=== PATIENT | female | born 1955 | race Caucasian/White ===

== ENCOUNTER 2016-05-08 12:41 | Inpatient (IN) | payer MEDICAID ==
[2016-05-08] MEDS ORDERED: SODIUM CHLORIDE 0.9% 10 ML FLUSH FLUSH PRN (13:53)
--- NOTE | 2016-05-08 14:23 | DIRPT ---
CLINICAL DATA: Cough EXAM: CHEST 2 VIEW COMPARISON: 03/07/2016 FINDINGS: Aortic valve replacement. Heart size upper normal. Negative for heart failure. Lungs are clear without infiltrate or effusion. No change from the prior study. IMPRESSION: No active cardiopulmonary disease. Electronically Signed By: Luis Ellis M.D. On: 05/08/2016 14:20
--- NOTE | 2016-05-08 14:26 | DIRPT ---
CLINICAL DATA: Patient with altered mental status. Combative. EXAM: CT HEAD WITHOUT CONTRAST TECHNIQUE: Contiguous axial images were obtained from the base of the skull through the vertex without intravenous contrast. COMPARISON: Brain CT 03/07/2016. FINDINGS: Ventricles and sulci are prominent compatible with atrophy. Periventricular and subcortical white matter hypodensity compatible with chronic small vessel ischemic changes. No evidence for acute cortically based infarct, intracranial hemorrhage, mass lesion or mass-effect. Orbits are unremarkable. Paranasal sinuses are unremarkable. Fluid within left mastoid air cells. Calvarium is intact. IMPRESSION: No acute intracranial process. Chronic small vessel ischemic changes. Electronically Signed By: Ahsan Russo M.D. On: 05/08/2016 14:24
[2016-05-08 14:40] LABS: AUTOMATED BASOPHIL 0.2 % (0-2); AUTOMATED EOSINOPHIL 0.2 % (0-5); AUTOMATED LYMPH 6.6 % (17-44); AUTOMATED MONOCYTE 4.5 % (3-10); AUTOMATED NEUTROPHIL 88.5 % (45-76); MPV 8.6 fL (7.4-10.4)
[2016-05-08 14:51] LABS: PARTIAL THROMB. TIME 19.4 SEC (22-35); PT-INR 1.3
--- NOTE | 2016-05-08 15:15 | EDPRACDOC ---
- General Information Information Source: Patient Mode Of Arrival: Ambulance - History of Present Illness Symptoms Started: TODAY HPI: PT PRESENTS TODAY VIA EMS FOR 2 MONTHS OF COUGH/CONGESTION, GENERAL MALAISE, INTERMITTENT FEVERS/CP/VOMITING. PT HAS NOT SEEN PCP FOR THIS. CURRENTLY PT DOES NOT APPEAR TO BE IN ANY DISTRESS. PT DENIES GARCIA, DIZZINESS, SHOB, ABD PAIN , DYSURIA. PT POOR HISTORIAN AND STATES "I'M NOT STAYING NO MATTER WHAT YOU SAY , JUST FIND OUT WHAT'S WRONG WITH ME AND LET ME GO HOME". Symptoms: Reports: Cough, Fever, Vomiting Recent Medications: Reports: None Shortness of Breath: None Cough Frequency: Persistent Cough Description: Reports: Strong, Congested Ear Symptoms: Reports: None Associated Signs and Symptoms: Reports: Cough, Fever, Nausea, Vomiting, Myalgia <Gabriella Dasilva K - Last Filed: 05/08/16 18:01> <Juliann Davis - Last Filed: 05/08/16 19:40> - General Information Chief Complaint: Altered Mental Status Stated Complaint: AMS Time Seen by Provider: 05/08/16 13:32 Home Medications: Home Medications Amlodipine [Norvasc] 10 mg PO DAILY 03/07/16 Amoxicillin Trihydrate [Amoxicillin] 500 mg PO TID #30 tab 03/07/16 Ciprofloxacin HCl [Cipro] 500 mg PO BID #20 tab 03/07/16 Furosemide [Lasix] 20 mg PO DAILY PRN 03/07/16 Levothyroxine Sodium 25 mcg PO DAILY 03/07/16 Lisinopril [Prinivil] 10 mg PO DAILY 03/07/16 Metoprolol Succinate (XL) [Toprol Xl] 12.5 mg PO DAILY 03/07/16 Omeprazole 20 mg PO DAILY 03/07/16 Pantoprazole Sodium [Protonix] 40 mg PO DAILY #30 tab 03/07/16 Quetiapine Fumarate [Seroquel] 50 mg PO BID #60 tab 03/07/16 Allergies/Adverse Reactions: Allergies Allergy/AdvReac Type Severity Reaction Status Date / Time No Known Allergies Allergy Verified 03/07/16 14:48 ED Past Medical History - History Reviewed Yes Nurses notes reviewed and agree except as marked - Patient Medical History Cardiac History: Reports: Hypertension, Hypercholesterolemia Psychological History: Reports: Depression Surgical History: Reports: Cholecystectomy, Tonsillectomy/Adnoidectomy - Social Medical History Smoking Status: Heavy tobacco smoker (5 or more cigarettes/day or daily pipe/ cigar) <Gabriella Dasilva - Last Filed: 05/08/16 18:01> EDM Review of Systems - Review of Systems ROS Negative Except as Marked: Yes All systems reviewed and were negative except as marked Constitutional: Fever, Fatigue, Weakness Eyes: No Symptoms Reported Ears: No Symptoms Reported Throat: No Symptoms Reported Nose: Congestion Respiratory: Cough, Shortness of Breath Cardiovascular: Chest Pain Gastrointestinal: Nausea, Vomiting Genitourinary: No Symptoms Reported Neurological: No Symptoms Reported Musculoskeletal: No Symptoms Reported Integumentary: No Symptoms Reported <Gabriella Dasilva - Last Filed: 05/08/16 18:01> - Physical Exam Constitutional: Alert (Awake), No apparent distress Oriented to: Time, Person, Place Last recorded Vital Signs: Last Vital Signs Temp 97.4 F L 05/08/16 13:05 Pulse 86 05/08/16 14:08 Resp 18 05/08/16 14:08 BP 131/74 05/08/16 14:08 Pulse Ox 96 05/08/16 14:08 Oxygen Pulse Oxygen Saturation 96 O2 Device Room Air Oxygen Flow Rate Fraction of Inspired Oxygen ( FIO2) - HEENT Head: Normal Eye Exam: Normal Oropharynx: Normal Neck: Normal, Denies Pain, Midline - Respiratory/Cardiovascular Respiratory: Normal - CTA Cardiovascular: Normal - GI Auscultation: Normal Palpation: Normal Tenderness: Non tender - Musculoskeletal Back: Normal Extremities: Normal - Integumentary Skin: Normal Lymphatics: Normal - Neurologic Cerebellar: Normal Mood Description: Normal Thought: Coherent Perception: Normal <Gabriella Dasilva - Last Filed: 05/08/16 18:01> - Physical Exam Last recorded Vital Signs: Last Vital Signs Temp 97.4 F L 05/08/16 13:05 Pulse 89 05/08/16 16:34 Resp 16 05/08/16 16:34 BP 131/81 05/08/16 16:34 Pulse Ox 95 05/08/16 16:34 Oxygen Pulse Oxygen Saturation 95 O2 Device Room Air Oxygen Flow Rate Fraction of Inspired Oxygen ( FIO2) <Juliann Davis - Last Filed: 05/08/16 19:40> - Re-evaluation Re-evaluation 1 Re-evaluation Time: 16:19 NOTED RENAL FAILURE; PTS IV HAS INFILTRATED AND AT THE CURRENT MOMENT, SHE IS REFUSING ADDITIONAL IV ACCESS AT THIS TIME. I EXPLAIN TO PT THAT SHE IS IN RENAL FAILURE AND SHE COULD ; PT STILL REFUSES. SON AND DAUGHTER ARE HERE AND WILL TALK TO PT ABOUT ALLOWING US TO TREAT. PT FINALLY AGREES TO ALLOW ME TO TREAT HER. FAMILY IS ALSO PRESENT AND AGREES TO PLAN. - Results 05/08/16 14:26 05/08/16 15:42 WBC 15.0 xk/uL (3.8-10.8) H 05/08/16 14:26 RBC 5.32 xM/uL (4.20-5.40) 05/08/16 14:26 Hgb 14.5 g/dL (12.0-16.0) 05/08/16 14:26 Hct 43.5 % (36-47) 05/08/16 14:26 MCV 82 fL (81-99) 05/08/16 14:26 MCH 27.3 pg (27-32) 05/08/16 14:26 MCHC 33.4 g/dl (33-36) 05/08/16 14:26 RDW 18.1 % (11.5-14.5) H 05/08/16 14:26 Plt Count 396 xk/uL (130-400) 05/08/16 14:26 MPV 8.6 fL (7.4-10.4) 05/08/16 14:26 Neut % (Auto) 88.5 % (45-76) H 05/08/16 14:26 Lymph % (Auto) 6.6 % (17-44) L 05/08/16 14:26 [place] % (Auto) 4.5 % (3-10) 05/08/16 14:26 Eos % (Auto) 0.2 % (0-5) 05/08/16 14:26 Baso % (Auto) 0.2 % (0-2) 05/08/16 14:26 Absolute Neuts (auto) 13.20 xk/uL (1.7-8.2) H 05/08/16 14:26 Absolute Lymphs (auto) 0.90 xk/uL (0.65-4.75) 05/08/16 14:26 PT 13.3 SEC (9.2-11.2) H 05/08/16 14:26 INR 1.3 05/08/16 14:26 APTT 19.4 SEC (22-35) L 05/08/16 14:26 Lab Results 05/08/16 05/08/16 14:26 14:26 WBC 15.0 H RBC 5.32 Hgb 14.5 Hct 43.5 MCV 82 MCH 27.3 MCHC 33.4 RDW 18.1 H Plt Count 396 MPV 8.6 Neut % (Auto) 88.5 H Lymph % (Auto) 6.6 L [place] % (Auto) 4.5 Eos % (Auto) 0.2 Baso % (Auto) 0.2 Absolute Neuts (auto) 13.20 H Absolute Lymphs (auto) 0.90 PT 13.3 H INR 1.3 APTT 19.4 L - EKG EKG #1 EKG Time: 14:05 -: Yes EKG interpreted by me Rate: bpm: 84 [place]: Normal Rhythm: NSR Block: None Hypertrophy: LAE ST: Normal Comparison: 03/07/17 <Gabriella Dasilva - Last Filed: 05/08/16 18:01> - Re-evaluation Re-evaluation 2 Re-evaluation Time: 17:25 (AFTER DISCUSSION WITH PATIENT AND SON, PT RELENTS TO STAYING IN HOSPITAL) PT ALERT AND ORIENTED X 4, BUT HAS SIGNIFICANT DIFFICULTY WITH ANSWERS. ABILITY TO MAKE AN INFORMED MEDICAL DECISION QUESTIONABLE. - Results 05/08/16 14:26 05/08/16 15:42 WBC 15.0 xk/uL (3.8-10.8) H 05/08/16 14:26 RBC 5.32 xM/uL (4.20-5.40) 05/08/16 14:26 Hgb 14.5 g/dL (12.0-16.0) 05/08/16 14:26 Hct 43.5 % (36-47) 05/08/16 14:26 MCV 82 fL (81-99) 05/08/16 14:26 MCH 27.3 pg (27-32) 05/08/16 14:26 MCHC 33.4 g/dl (33-36) 05/08/16 14:26 RDW 18.1 % (11.5-14.5) H 05/08/16 14:26 Plt Count 396 xk/uL (130-400) 05/08/16 14:26 MPV 8.6 fL (7.4-10.4) 05/08/16 14:26 Neut % (Auto) 88.5 % (45-76) H 05/08/16 14:26 Lymph % (Auto) 6.6 % (17-44) L 05/08/16 14:26 [place] % (Auto) 4.5 % (3-10) 05/08/16 14:26 Eos % (Auto) 0.2 % (0-5) 05/08/16 14:26 Baso % (Auto) 0.2 % (0-2) 05/08/16 14:26 Absolute Neuts (auto) 13.20 xk/uL (1.7-8.2) H 05/08/16 14:26 Absolute Lymphs (auto) 0.90 xk/uL (0.65-4.75) 05/08/16 14:26 PT 13.3 SEC (9.2-11.2) H 05/08/16 14:26 INR 1.3 05/08/16 14:26 APTT 19.4 SEC (22-35) L 05/08/16 14:26 Sodium 135 mEq/L (137-146) L 05/08/16 15:42 Potassium 4.5 mEq/L (3.5-5.1) 05/08/16 15:42 Chloride 101 mEq/L (98-107) 05/08/16 15:42 Carbon Dioxide 14 mMOL/L (22-33) L 05/08/16 15:42 Anion Gap 25 mEq/L (8-16) H 05/08/16 15:42 BUN 52 MG/DL (7-17) H 05/08/16 15:42 Creatinine 4.30 MG/DL (0.52-1.04) H 05/08/16 15:42 Estimated GFR (MDRD) 11 mL/min (>=60) L 05/08/16 15:42 Glucose 60 MG/DL (70-99) L 05/08/16 15:42 Calculated Osmolality 272 MOs/Kg (270-290) 05/08/16 15:42 Calcium 9.4 MG/DL (8.4-10.2) 05/08/16 15:42 Corrected Calcium 10.1 MG/DL (8.4-10.2) 05/08/16 15:42 Total Bilirubin 11.6 MG/DL (0.2-1.3) H 05/08/16 15:42 AST 21 IU/L (14-36) 05/08/16 15:42 ALT 23 IU/L (9-52) 05/08/16 15:42 Alkaline Phosphatase 284 IU/L (55-165) H 05/08/16 15:42 Troponin I 0.09 ng/mL (<.04) 05/08/16 15:42 Total Protein 6.9 G/DL (6.3-8.2) 05/08/16 15:42 Albumin 3.3 G/DL (3.5-5.0) L 05/08/16 15:42 Lab Results 05/08/16 05/08/16 05/08/16 15:42 14:26 14:26 WBC 15.0 H RBC 5.32 Hgb 14.5 Hct 43.5 MCV 82 MCH 27.3 MCHC 33.4 RDW 18.1 H Plt Count 396 MPV 8.6 Neut % (Auto) 88.5 H Lymph % (Auto) 6.6 L [place] % (Auto) 4.5 Eos % (Auto) 0.2 Baso % (Auto) 0.2 Absolute Neuts (auto) 13.20 H Absolute Lymphs (auto) 0.90 PT 13.3 H INR 1.3 APTT 19.4 L Sodium 135 L Potassium 4.5 Chloride 101 Carbon Dioxide 14 L Anion Gap 25 H BUN 52 H Creatinine 4.30 H Estimated GFR (MDRD) 11 L Glucose 60 L Calculated Osmolality 272 Calcium 9.4 Corrected Calcium 10.1 Total Bilirubin 11.6 H AST 21 ALT 23 Alkaline Phosphatase 284 H Troponin I 0.09 Total Protein 6.9 Albumin 3.3 L <Juliann Davis N - Last Filed: 05/08/16 19:40> <Gabriella Dasilva - Last Filed: 05/08/16 18:01> - Departure Disposition: Admit IP To This [facility] Education/Counseling Given To: Patient, Family Member Education/Counseling Given Regarding: Diagnosis, Treatment, Prognosis Decision to Admit Time: 19:40 Decision to admit date: 05/08/16 Decision to admit: from ED - Physician Consulted Hospitalist Time Called: 19:40 Provider Called: Brigette Farley Time Geology Associate Returned Call: 19:40 <Juliann Davis - Last Filed: 05/08/16 19:40> - Departure Condition: Stable Final Diagnosis: Toxic metabolic encephalopathy, Hyperbilirubinemia Acute renal failure (ARF) Qualifiers: Acute renal failure type: unspecified Qualified Code(s): N17.9 - Acute kidney failure, unspecified Instructions: Renal Failure Diet (GEN)
[2016-05-08 16:03] LABS: CALC CORRECTED 10.1 MG/DL (8.4-10.2); CALCIUM 9.4 MG/DL (8.4-10.2); CREATININE 4.3 MG/DL (0.52-1.04); TOTAL PROTEIN 6.9 G/DL (6.3-8.2)
[2016-05-08] MEDS ORDERED: NS 1,000 ML IV ONE ×3 (17:43→20:04)
--- NOTE | 2016-05-08 19:29 | DIRPT ---
CLINICAL DATA: Hyperbilirubinemia. History of a cholecystectomy. EXAM: US ABDOMEN LIMITED - RIGHT UPPER QUADRANT COMPARISON: CT, 03/07/2016 FINDINGS: Gallbladder: Surgically absent. Common bile duct: Diameter: 6.1 mm. Distal duct not seen. No evidence of a duct stone. Liver: No focal lesion identified. Within normal limits in parenchymal echogenicity. IMPRESSION: 1. Common bile duct is normal in caliber for this patient's age and given the history of prior cholecystectomy. No evidence of a duct stone. Distal duct not visualized on this exam. 2. Normal sonographic appearance of the liver. Electronically Signed By: Michael Pereyra M.D. On: 05/08/2016 19:26
[2016-05-08] MEDS ORDERED: SODIUM CHLORIDE 0.9% 3 ML FLUSH FLUSH PRN (20:04)
[2016-05-08] MEDS ORDERED: ACETAMINOPHEN 650 MG SUPP PR PRN (20:04)
[2016-05-08] MEDS ORDERED: TEMAZEPAM 15 MG CAP PO PRN (20:04)
[2016-05-08] MEDS ORDERED: ONDANSETRON HCL 4 MG/2 ML VIAL IV PRN (20:04)
[2016-05-08] MEDS ORDERED: DOCUSATE-SENNA CONCENTRATE TAB PO PRN (20:04)
[2016-05-08] MEDS ORDERED: IBUPROFEN 400 MG TAB PO PRN (20:04)
[2016-05-08] MEDS ORDERED: ACETAMINOPHEN 325 MG/TAB TABLET PO PRN (20:04)
[2016-05-08] MEDS ORDERED: SIMETHICONE 80 MG TAB PO PRN (20:04)
[2016-05-08] MEDS ORDERED: PROMETHAZINE 25 MG/ML VIAL IV PRN (20:04)
[2016-05-08] MEDS ORDERED: BENZONATATE 100 MG PERLES PO PRN (20:04)
--- NOTE | 2016-05-08 20:27 | HISTPHYS ---
- Chief Complaint nausea & vomiting x 1 month - History of Present Illness Norma Craven is a 60 year old schizophrenic woman who presented to the ED tonight with recurrent nausea and vomiting. She was last seen here in March with similar symptoms, was noted to have an elevated bilirubin, and had a CT of the abdomen and pelvis done which was essentially normal. the patient has already had her gallbladder removed, and did not show any evidence of biliary ductal dilatation at that time, so she was discharged home with instructions to follow up with her primary care physician. She returns again this evening, stating that she has continued to vomit off and on for the past month. Now she has evidence of severe dehydration and renal compromise. Her bilirubin has risen to 11.She was unable to have a CT scan repeated due to her renal failure, but an abdominal ultrasound did not show any evidence of ductal dilatation, although the distal bile duct is not well visualized. Her alkaline phosphatase is elevated, although none of the other liver enzymes are elevated. She will be admitted for further evaluation and management. - Medical History Cardiac History: Reports: Coronary Artery Disease, Hypertension, Cardiac Catheterization, CABG, Hypercholesterolemia, Valvular Heart Disease Respiratory History: Reports: COPD, Cough, Chronic Bronchitis GI/ History: Reports: Renal Failure Musculoskeletal History: Reports: No Significant History Neurological History: Reports: No Significant History Psychological History: Reports: Depression, Schizophrenia - Surgical History Reports: Cholecystectomy, CABG (w/ aortic valve replacement), Tonsillectomy/ Adnoidectomy, Other ( x2, BTL) - Medictions/Allergies Allergies No Known Allergies Allergy (Verified 03/07/16 14:48) Current Medication List: Reviewed Home Medications Amlodipine [Norvasc] 10 mg PO DAILY 03/07/16 Amoxicillin Trihydrate [Amoxicillin] 500 mg PO TID #30 tab 03/07/16 Ciprofloxacin HCl [Cipro] 500 mg PO BID #20 tab 03/07/16 Furosemide [Lasix] 20 mg PO DAILY PRN 03/07/16 Levothyroxine Sodium 25 mcg PO DAILY 03/07/16 Lisinopril [Prinivil] 10 mg PO DAILY 03/07/16 Metoprolol Succinate (XL) [Toprol Xl] 12.5 mg PO DAILY 03/07/16 Omeprazole 20 mg PO DAILY 03/07/16 Pantoprazole Sodium [Protonix] 40 mg PO DAILY #30 tab 03/07/16 Quetiapine Fumarate [Seroquel] 50 mg PO BID #60 tab 03/07/16 - Family History Reports: Cardiac Disorders, Respiratory Disorders - Social History Travel Outside of [place] in the Last 3 Months?: No Lives: Alone Smoking Status: Heavy tobacco smoker (5 or more cigarettes/day or daily pipe/ cigar) (1 05/04 ppd) Social History: Denies: Alcohol Use, Substance Use Disorder - Review of Systems Constitutional: Fatigue, Weakness Eyes: No Symptoms Reported Ears: No Symptoms Reported Nose: No Symptoms Reported Mouth: Dry Mouth, Poor Dentition Throat/Neck: No Symptoms Reported Respiratory: Cough, Shortness of Breath Cardiovascular: Other (feet swelling) Gastrointestinal: Nausea, Vomiting, Constipation, Heartburn, Appetite Changes ( decreased). negative: Abdominal Pain Genitourinary: Hematuria, Postmenopause Neurological: Dizziness, Headache, Numbness, Weakness Musculoskeletal:: No Symptoms Reported Integumentary: Itching Allergic/Immunologic: Itching Hematologic: No Symptoms Reported Endocrine: Weight Loss Psychiatric: Depression - Physical Exam Vital Signs: Initial Vitals Temperature 97.4 F L 05/08/16 13:05 Pulse Rate 90 05/08/16 13:05 Respiratory Rate 18 05/08/16 13:05 Blood Pressure 160/76 05/08/16 13:05 Pulse Oxygen Saturation 96 05/08/16 13:05 Constitutional: Alert, Agitated, Confused Oriented to: Person, Place - HEENT Head: Normal Eye: Conjunctival Injection (PERRL: EOMI), Scleral Icterus Oropharynx: Membranes Dry Tympanic Membrane: Normal Nose: No Symptoms Reported. negative: Bleeding, Congestion, Discharge Respiratory: Normal - CTA, Diminished Cardiovascular: Normal (regular rhythm and rate), Systolic murmur (3/6 throuhg- out pre-cordium) - GI Auscultation: Normal Palpation: Normal (soft, nondistended, no mass, liver down 2 cm from Right costal margin in mid-clavicular line). negative: Fluid Wave, Mass Tenderness: Non tender. negative: Guarding, Rebound Vincent's Sign: Negative Rectal Exam: Normal, Heme negative stool, Rectal Tone (normal) Stool: Brown - Musculoskeletal Back: Normal Extremities: Normal, Pedal Pulse (normal), Radial Pulse (normal). negative: Pedal Edema Spine: non-tender, normal alignment, normal inspection - Integumentary Skin: Warm, Dry (coarse & dry). negative: Rash Lymphatics: Normal - Neurologic Memory Impaired: Normal Motor Function: Normal Cranial Nerve: Normal Cerebellar: Normal Mood Description: Agitated Thought: Paranoia Perception: Normal - Focused CV Perfusion Exam Vital Signs: Last Vital Signs Temp 97.4 F L 05/08/16 13:05 Pulse 92 05/08/16 17:57 Resp 18 05/08/16 17:57 BP 142/67 05/08/16 17:57 Pulse Ox 95 05/08/16 17:57 - Lab Results Laboratory Tests 05/08/16 05/08/16 05/08/16 14:26 14:26 15:42 WBC 15.0 H Hgb 14.5 Hct 43.5 Plt Count 396 Neut % (Auto) 88.5 H Lymph % (Auto) 6.6 L [place] % (Auto) 4.5 Absolute Neuts (auto) 13.20 H PT 13.3 H INR 1.3 APTT 19.4 L Sodium 135 L Potassium 4.5 Chloride 101 Carbon Dioxide 14 L Anion Gap 25 H BUN 52 H Creatinine 4.30 H Estimated GFR (MDRD) 11 L Glucose 60 L POC Capillary Glucose Calculated Osmolality 272 Corrected Calcium 10.1 Total Bilirubin 11.6 H AST 21 ALT 23 Alkaline Phosphatase 284 H Ammonia Troponin I 0.09 Total Protein 6.9 Albumin 3.3 L 05/08/16 05/08/16 17:45 20:48 WBC Hgb Hct Plt Count Neut % (Auto) Lymph % (Auto) [place] % (Auto) Absolute Neuts (auto) PT INR APTT Sodium Potassium Chloride Carbon Dioxide Anion Gap BUN Creatinine Estimated GFR (MDRD) Glucose POC Capillary Glucose 67 L Calculated Osmolality Corrected Calcium Total Bilirubin AST ALT Alkaline Phosphatase Ammonia < 9.0 L Troponin I Total Protein Albumin - Diagnostic Findings GB US: IMPRESSION: 1. Common bile duct is normal in caliber for this patient's age and given the history of prior cholecystectomy. No evidence of a duct stone. Distal duct not visualized on this exam. 2. Normal sonographic appearance of the liver. Electronically Signed By: Michael Pereyra M.D. On: 05/08/2016 19:26 CT HEAD: IMPRESSION: No acute intracranial process. Chronic small vessel ischemic changes. Electronically Signed By: Ahsan Russo M.D. On: 05/08/2016 14:24 CXR:FINDINGS: Aortic valve replacement. Heart size upper normal. Negative for heart failure. Lungs are clear without infiltrate or effusion. No change from the prior study. IMPRESSION: No active cardiopulmonary disease. Electronically Signed By: Luis Ellis M.D. On: 05/08/2016 14:20 EKG:sinus rhythm, septal AL age undetermined, LAE, ST-changes with repolariztion abnomality- may represent anterolateral ischemia - Assessment (1) Acute renal failure (ARF) N17.9 - ACUTE KIDNEY FAILURE, UNSPECIFIED Acute Present on Admission: Yes Qualifiers: Acute renal failure type: unspecified Qualified Code(s): N17.9 - Acute kidney failure, unspecified Admit, begin aggressive rehydration and control of emesis. Follow renal function closely. Monitor I&O, especially urine output. Will obtain blood and urin cultures, but this does not appear to be an infectious etiology. (2) Hyperbilirubinemia E80.6 - OTHER DISORDERS OF BILIRUBIN METABOLISM Acute Present on Admission: Yes Reason for patient's jaundice is not clear, but appears to be obstructive jaundice. Medication reaction needs to be considered as well. Will hydrate aggressively overnight, schedule for MRCP in AM. May need ERCP if she does in fact have a retained stone. The patient at this time is refusing any procedures , but we are still needing a diagnosis. Review medications for possible medication reaction. (3) Abnormal EKG R94.31 - ABNORMAL ELECTROCARDIOGRAM [ECG] [EKG] Acute Present on Admission: Yes Obtain serial troponins, observe on telemetry. Repeat EKG in AM since her N&V could be angina equivalent. She has denied any chest pain. Hx of aortic valve replacement (apparently with bioprosthetic valve- because she is not anticoagulated). Also has history of coronary artery disease. (4) Nausea & vomiting R11.2 - NAUSEA WITH VOMITING, UNSPECIFIED Acute Present on Admission: Yes Qualifiers: Vomiting type: unspecified Vomiting Intractability: non-intractable Qualified Code(s): R11.2 - Nausea with vomiting, unspecified Use antiemetics as needed to control symptoms. (5) Dehydration E86.0 - DEHYDRATION Acute Present on Admission: Yes Patient has 6 L of IVF ordered since admission to ED and before beginning maintenance IVF rate. Will recheck renal function/ hepatic function in am. (6) Toxic metabolic encephalopathy G92 - TOXIC ENCEPHALOPATHY Acute Present on Admission: Yes Per Dr. Davis the patient was confused and combative at home, very confused when she first arrived at the ED. This is somewhat better now, although the patient continues to be argumentative and paranoid. She is cognizant of her surroundings. (7) Schizophrenia, paranoid F20.0 - PARANOID SCHIZOPHRENIA Acute Present on Admission: Yes Patient with long psychiatric history, exact diagnosis unkown, but patient displaying symptoms consistent with paranoid schizophrenia. Magical thinking/ concrete thought pattern, paranoid delusions. She is consolable, however. Case Care Discussed with: Patient, Consultants, Nursing Staff Total Time: 65 min Critical Care: Yes [place] Time (>50% in counseling/coordination): Yes Code: 291
[2016-05-08] MEDS ORDERED: Vaccine Screening Complete SCH (22:00)
[2016-05-08] MEDS ORDERED: NICOTINE 21 MG PATCH TOP ONE (22:00)
[2016-05-08 22:16] LABS: LEUKOCYTES/URINE 2+ (NEGATIVE); NITRITE/URINE NEG (NEGATIVE); URINE OCCULT BLOOD NEG (NEG/TRACE); WBC/URINE TNTC (0-5)
[2016-05-09] MEDS: NS 1,000 ML IV SCH ×3 (00:30→06:59)
[2016-05-09 01:27] LABS: ALL NEG? YES; MDMA* NEG (NEGATIVE); METHAMPHETAMINES NEG (NEGATIVE); OXYCODONE NEG (NEGATIVE)
[2016-05-09] MEDS: SODIUM CHLORIDE 0.9% 3 ML FLUSH FLUSH SCH ×2 (05:28→18:22)
[2016-05-09 06:24] LABS: MPV 8.4 fL (7.4-10.4)
[2016-05-09 07:01] LABS: CALC CORRECTED 9.4 MG/DL (8.4-10.2); CREATININE 3.9 MG/DL (0.52-1.04); TOTAL PROTEIN 5.6 G/DL (6.3-8.2)
[2016-05-09 07:54] LABS: SEG NEUTROPHIL 59 % (45-76)
[2016-05-09] MEDS: NICOTINE 21 MG PATCH TOP SCH (09:07)
[2016-05-09] MEDS: AMLODIPINE 10 MG TAB PO SCH (09:07)
[2016-05-09] MEDS: METOPROLOL (TOPROL-XL) 25 MG TAB PO SCH (09:07)
--- NOTE | 2016-05-09 12:33 | CAPUEKG ---
[place], [place] Test Date: 2016-05-09 Pat Name: GILLIAN PATTERSON Department: Room: 380 Gender: Female Patient Safety Manager: LORRI: Requested By: Order Number: Reading MD: Fred Lee Measurements Intervals [place] Rate: 88 P: 83 OR: 120 QRS: 25 QRSD: 86 T: 159 QT: 370 QTc: 447 Interpretive Statements Normal sinus rhythm Left atrial enlargement Septal infarct, age undetermined ST \T\ T wave abnormality, consider lateral ischemia or LV strain No change from prior tracing. Abnormal ECG Electronically Signed On 05-09-16 12:33:10 EST by Fred Lee <[id number] [id number]
--- NOTE | 2016-05-09 14:41 | GENMEDPROG ---
Subjective Note: Patient in bed responsive follows commands. Alert awake slightly confused.. Coughing producing small amount of sputum no hemoptysis.. Reports occasional abdominal bloating and indigestion but denies any nausea vomiting. Notes Reviewed: Yes Events from last night noted and discussed with Clinical Staff Current Medication List: Reviewed Currently: Reports: Cough, GOOD, SOB, Sputum, Tobacco Use/Hx, Reflux Sx, Abdominal Pain DVT Prophylaxis: Yes - Physical Examination Vital Signs and I&O: Last Vital Signs Temp 98.3 F 05/09/16 09:30 Pulse 89 05/09/16 09:30 Resp 20 05/09/16 09:30 BP 126/71 05/09/16 09:30 Pulse Ox 97 05/09/16 09:30 Oxygen Pulse Oxygen Saturation 97 O2 Device Room Air Oxygen Flow Rate Fraction of Inspired Oxygen ( FIO2) Intake & Output 05/06/16 05/07/16 05/08/16 05/09/16 23:59 23:59 23:59 23:59 Intake Total 1000 3063 Output Total 50 150 Balance 950 2913 Patient's weight 53.751 kg 54.573 kg General: Alert, Oriented x3, Cooperative, No acute distress HEENT: Normal, PERRLA, EOMI, Anicteric Sclera Neck: Non-tender, Limited range of motion Lymphatics: Normal Respiratory: Normal - CTA, Diminished, Rhonchi Cardiovascular: Regular rate, Normal S1, Normal S2, Murmurs GI: Soft, Non tender, No hepatospenomegaly, No masses Extremities/Musculoskeletal: Edema, Cyanosis, DJD Skin: Warm,Dry and Intact, No rashes, No breakdown, No significant lesion Neurological: Normal speech, Cranial nerves 3-12 NL Psych/Mental Status: Anxious Lab/DI/Studies Reviewed: Allergies No Known Allergies Allergy (Verified 03/07/16 14:48) Last Vital Signs Temp 98.3 F 05/09/16 09:30 Pulse 89 05/09/16 09:30 Resp 05/09/16 09:30 BP 126/71 05/09/16 09:30 Pulse Ox 97 05/09/16 09:30 05/09/16 06:04 05/09/16 06:04 Abnormal Lab Results 05/08/16 05/08/16 05/08/16 14:26 14:26 15:42 WBC 15.0 H Hgb Hct MCHC RDW 18.1 H Neut % (Auto) 88.5 H Lymph % (Auto) 6.6 L Absolute Neuts (auto) 13.20 H Band Neutrophils % PT 13.3 H APTT 19.4 L Sodium 135 L Chloride Carbon Dioxide 14 L Anion Gap 25 H BUN 52 H Creatinine 4.30 H Estimated GFR (MDRD) 11 L Glucose 60 L POC Capillary Glucose Calcium Total Bilirubin 11.6 H Alkaline Phosphatase 284 H Ammonia Total Protein Albumin 3.3 L Urine Protein Ur Leukocyte Esterase Urine WBC Urine Bacteria Hyaline Casts Stool Occult Blood 05/08/16 05/08/16 05/08/16 17:45 20:48 22:00 WBC Hgb Hct MCHC RDW Neut % (Auto) Lymph % (Auto) Absolute Neuts (auto) Band Neutrophils % PT APTT Sodium Chloride Carbon Dioxide Anion Gap BUN Creatinine Estimated GFR (MDRD) Glucose POC Capillary Glucose 67 L Calcium Total Bilirubin Alkaline Phosphatase Ammonia < 9.0 L Total Protein Albumin Urine Protein 2+ H Ur Leukocyte Esterase 2+ H Urine WBC Tntc H Urine Bacteria 3+ H Hyaline Casts 5-10 H Stool Occult Blood 05/09/16 05/09/16 05/09/16 06:04 06:04 06:05 WBC Hgb 11.6 L D Hct 35.5 L MCHC 32.5 L RDW 18.4 H Neut % (Auto) Lymph % (Auto) Absolute Neuts (auto) Band Neutrophils % 17 H PT APTT Sodium Chloride 108 H Carbon Dioxide 10 L Anion Gap 24 H BUN 49 H Creatinine 3.90 H Estimated GFR (MDRD) 12 L Glucose POC Capillary Glucose Calcium 8.0 L Total Bilirubin 8.1 H Alkaline Phosphatase 259 H Ammonia Total Protein 5.6 L Albumin 2.6 L Urine Protein Ur Leukocyte Esterase Urine WBC Urine Bacteria Hyaline Casts Stool Occult Blood Pos H 05/09/16 10:20 WBC Hgb Hct MCHC RDW Neut % (Auto) Lymph % (Auto) Absolute Neuts (auto) Band Neutrophils % PT APTT Sodium Chloride Carbon Dioxide Anion Gap BUN Creatinine Estimated GFR (MDRD) Glucose POC Capillary Glucose Calcium Total Bilirubin Alkaline Phosphatase Ammonia Total Protein Albumin Urine Protein Ur Leukocyte Esterase Urine WBC Urine Bacteria Hyaline Casts Stool Occult Blood Pos H - Assessment (1) Acute renal failure (ARF) Acute N17.9 - ACUTE KIDNEY FAILURE, UNSPECIFIED Qualifiers: Acute renal failure type: unspecified Qualified Code(s): N17.9 - Acute kidney failure, unspecified Comment/Plan: Continue aggressive IV hydration. Avoid any nephrotoxins monitor. renal function with daily BMP (2) Dehydration Acute E86.0 - DEHYDRATION Comment/Plan: Continue IV fluids monitor hemodynamics.. (3) Hyperbilirubinemia Acute E80.6 - OTHER DISORDERS OF BILIRUBIN METABOLISM Comment/Plan: MRCP report pending. Monitor LFTs. (4) GERD (gastroesophageal reflux disease) Acute K21.9 - GASTRO-ESOPHAGEAL REFLUX DISEASE WITHOUT ESOPHAGITIS Qualifiers: Esophagitis presence: without esophagitis Qualified Code(s): K21.9 - Gastro -esophageal reflux disease without esophagitis Comment/Plan: Continue PPI (5) Toxic metabolic encephalopathy Acute G92 - TOXIC ENCEPHALOPATHY Comment/Plan: Continue supportive care , avoid excessive sedation and anticholinergics.. (6) COPD (chronic obstructive pulmonary disease) Acute J44.9 - CHRONIC OBSTRUCTIVE PULMONARY DISEASE, UNSPECIFIED Qualifiers: Chronic bronchitis type: unspecified Comment/Plan: Monitor pulmonary status, continue DuoNeb t.i.d. acutely hours prn (7) Schizophrenia, paranoid Acute F20.0 - PARANOID SCHIZOPHRENIA Comment/Plan: Resume Seroquel Case Care Discussed with: Patient, Consultants, Nursing Staff, Group Art Supervisor Education/Counseling Given To: Patient Education/Counseling Given Regarding: Diagnosis, Treatment, Prognosis, Follow Up Total Time: 50 min . Critical Care: No Code: 42681 (12+)
[2016-05-09] MEDS ORDERED: Albuterol/Ipratropium Neb 3 ML NEB NEB PRN (14:44)
[2016-05-09] MEDS: Albuterol/Ipratropium Neb 3 ML NEB NEB SCH ×2 (16:46→21:04)
--- NOTE | 2016-05-09 18:30 | DIRPT ---
CLINICAL DATA: Vomiting for 1 month. Evaluate for common bile duct obstruction. EXAM: MRI ABDOMEN WITHOUT CONTRAST (INCLUDING MRCP) TECHNIQUE: Multiplanar multisequence MR imaging of the abdomen was performed. Heavily T2-weighted images of the biliary and pancreatic ducts were obtained, and three-dimensional MRCP images were rendered by post processing. COMPARISON: 03/07/2016 FINDINGS: Lower chest: A small amount of pleural fluid is noted bilaterally. Hepatobiliary: There is mild diffuse hepatic steatosis noted. No focal liver abnormality identified. Previous cholecystectomy. There is no intrahepatic bile duct dilatation identified. The common bile duct is mildly prominent with a maximum diameter of 5 mm. This is within normal limits in a patient who is status post cholecystectomy. No obstructing stone is identified within the common bile duct. Within the limitations of noncontrast technique no mass is identified. Pancreas: There is no pancreatic duct dilatation identified. No focal pancreas abnormality identified. Spleen: Negative Adrenals/Urinary Tract: No focal adrenal abnormality identified. There is a cyst within the mid left kidney which measures 1.4 cm, image 26 of series 7. No obstructive uropathy is identified. Stomach/Bowel: The stomach appears normal. The upper abdominal bowel loops appear increased in caliber. Small bowel air-fluid levels are noted. There appears to be edema involving the wall of the colon. Vascular/Lymphatic: Normal caliber of the abdominal aorta. Aortic atherosclerosis is again noted. No adenopathy identified. Other: There is diffuse body wall edema, ascites and mesenteric and retroperitoneal edema. Musculoskeletal: No suspicious bone abnormalities identified. IMPRESSION: 1. No evidence for biliary obstruction. The common bile duct is normal in caliber for a patient who is status post cholecystectomy. There is no intrahepatic bile duct dilatation. 2. Anasarca and ascites. 3. Aortic atherosclerosis 4. Mild increase caliber of the bowel loops, etiology uncertain. There is also mild edema involving the wall of the colon which may be secondary to anasarca. Correlate for any clinical signs or symptoms of enteritis or colitis. 5. Hepatic steatosis. Electronically Signed By: Dunia Francis M.D. On: 05/09/2016 18:28
[2016-05-09] MEDS: QUETIAPINE FUMARATE 25 MG TAB PO SCH (20:23)
[2016-05-10] MEDS: NS 1,000 ML IV SCH ×3 (00:47→14:28)
[2016-05-10] MEDS: SODIUM CHLORIDE 0.9% 3 ML FLUSH FLUSH SCH ×2 (04:23→13:54)
[2016-05-10] MEDS: PANTOPRAZOLE 40 MG TAB PO SCH (04:23)
[2016-05-10 06:40] LABS: BLOOD UREA NITROGEN 48 MG/DL (7-17); CALCULATED OSMOLALITY 273 MOs/Kg (270-290); CHLORIDE 110 mEq/L (98-107); GLUCOSE 92 MG/DL (70-99); SODIUM LEVEL 135 mEq/L (137-146)
[2016-05-10] MEDS: NICOTINE 21 MG PATCH TOP SCH (07:59)
[2016-05-10] MEDS: METOPROLOL (TOPROL-XL) 25 MG TAB PO SCH (07:59)
[2016-05-10] MEDS: AMLODIPINE 10 MG TAB PO SCH (07:59)
[2016-05-10] MEDS: QUETIAPINE FUMARATE 25 MG TAB PO SCH ×2 (08:00→20:50)
[2016-05-10] MEDS: Albuterol/Ipratropium Neb 3 ML NEB NEB SCH ×2 (08:29→17:00)
--- NOTE | 2016-05-10 12:52 | GENMEDPROG ---
Chief Complaint: Elevated alk phosphatase, acute kidney injury Subjective Note: Doing well, she has no acute complaints. Denies any abdominal pain, nausea. Notes Reviewed: Yes Events from last night noted and discussed with Clinical Staff Current Medication List: Reviewed Currently: Reports: Cough, Tobacco Use/Hx, Reflux Sx DVT Prophylaxis: Yes - Physical Examination Vital Signs and I&O: Last Vital Signs Temp 97.5 F 05/10/16 09:48 Pulse 96 05/10/16 09:48 Resp 20 05/10/16 09:48 BP 106/58 L 05/10/16 09:48 Pulse Ox 97 05/10/16 09:48 Oxygen Pulse Oxygen Saturation 97 O2 Device Room Air Oxygen Flow Rate Fraction of Inspired Oxygen ( FIO2) Intake & Output 05/08/16 05/09/16 05/10/16 05/11/16 06:59 06:59 06:59 06:59 Intake Total 3723 3043 50 Output Total 200 270 Balance 3523 2773 50 Patient's weight 54.573 kg 55.367 kg General: Alert, Oriented x3, Cooperative, No acute distress HEENT: Normal, PERRLA, EOMI, Anicteric Sclera Neck: Non-tender, Limited range of motion Lymphatics: Normal Respiratory: Normal - CTA, Diminished, Rhonchi Cardiovascular: Regular rate, Normal S1, Normal S2, Murmurs GI: Soft, Non tender, No hepatospenomegaly, No masses Extremities/Musculoskeletal: Edema, Cyanosis, DJD Skin: Warm,Dry and Intact, No rashes, No breakdown, No significant lesion Neurological: Normal speech, Cranial nerves 3-12 NL Psych/Mental Status: Anxious Lab/DI/Studies Reviewed: Laboratory Tests 05/08/16 05/09/16 05/10/16 15:42 06:04 05:32 Potassium 4.4 BUN 48 H Creatinine 4.30 H 3.90 H 3.80 H - Assessment (1) Acute renal failure (ARF) Acute N17.9 - ACUTE KIDNEY FAILURE, UNSPECIFIED Qualifiers: Acute renal failure type: unspecified Qualified Code(s): N17.9 - Acute kidney failure, unspecified Comment/Plan: Continue aggressive IV hydration. Avoid any nephrotoxins monitor. renal function with daily BMP , overall improving. (2) COPD (chronic obstructive pulmonary disease) Acute J44.9 - CHRONIC OBSTRUCTIVE PULMONARY DISEASE, UNSPECIFIED Qualifiers: Chronic bronchitis type: unspecified Comment/Plan: Monitor pulmonary status, continue DuoNeb t.i.d. acutely hours prn (3) GERD (gastroesophageal reflux disease) Acute K21.9 - GASTRO-ESOPHAGEAL REFLUX DISEASE WITHOUT ESOPHAGITIS Qualifiers: Esophagitis presence: without esophagitis Qualified Code(s): K21.9 - Gastro -esophageal reflux disease without esophagitis Comment/Plan: Continue PPI (4) Hyperbilirubinemia Acute E80.6 - OTHER DISORDERS OF BILIRUBIN METABOLISM Comment/Plan: MRCP without any evidence of bile duct stenosis or obstruction. She is currently with improved symptoms. Although she is not the best historian. Continue present care with hydration, will advance diet today as the patient is requesting solid food over and over again. (5) Nausea & vomiting Acute R11.2 - NAUSEA WITH VOMITING, UNSPECIFIED Qualifiers: Vomiting type: unspecified Vomiting Intractability: non-intractable Qualified Code(s): R11.2 - Nausea with vomiting, unspecified Comment/Plan: Use antiemetics as needed to control symptoms. (6) Schizophrenia, paranoid Acute F20.0 - PARANOID SCHIZOPHRENIA Comment/Plan: Resume Seroquel
[2016-05-11] MEDS: Albuterol/Ipratropium Neb 3 ML NEB NEB SCH ×3 (00:10→15:41)
[2016-05-11] MEDS: NS 1,000 ML IV SCH ×3 (01:01→22:38)
[2016-05-11] MEDS: SODIUM CHLORIDE 0.9% 3 ML FLUSH FLUSH SCH ×2 (05:33→18:09)
[2016-05-11] MEDS: PANTOPRAZOLE 40 MG TAB PO SCH (05:34)
[2016-05-11 07:49] LABS: MPV 8.2 fL (7.4-10.4)
[2016-05-11 08:32] LABS: BLOOD UREA NITROGEN 50 MG/DL (7-17); CALC CORRECTED 9.8 MG/DL (8.4-10.2); CALCIUM 8.1 MG/DL (8.4-10.2); CALCULATED OSMOLALITY 276 MOs/Kg (270-290); CHLORIDE 112 mEq/L (98-107); GLUCOSE 86 MG/DL (70-99); SODIUM LEVEL 137 mEq/L (137-146); TOTAL PROTEIN 5.2 G/DL (6.3-8.2)
[2016-05-11] MEDS: NICOTINE 21 MG PATCH TOP SCH (09:15)
[2016-05-11] MEDS: METOPROLOL (TOPROL-XL) 25 MG TAB PO SCH (09:16)
[2016-05-11] MEDS: AMLODIPINE 10 MG TAB PO SCH (09:16)
[2016-05-11] MEDS: QUETIAPINE FUMARATE 25 MG TAB PO SCH ×2 (09:16→22:38)
--- NOTE | 2016-05-11 12:44 | GENMEDPROG ---
Chief Complaint: Acute kidney injury, hyperbilirubinemia Subjective Note: Doing well, resting comfortably. She denies any chest pain or shortness of breath or nausea. Says that she very intermittently has some abdominal pain. Has been tolerating a diet and has no other complaints. Currently: Reports: Cough, Tobacco Use/Hx, Reflux Sx DVT Prophylaxis: Yes - Physical Examination Vital Signs and I&O: Last Vital Signs Temp 98.7 F 05/11/16 06:00 Pulse 102 05/11/16 09:19 Resp 16 05/11/16 06:00 BP 109/62 05/11/16 09:19 Pulse Ox 93 05/11/16 06:00 Oxygen Pulse Oxygen Saturation 93 O2 Device Room Air Oxygen Flow Rate Fraction of Inspired Oxygen ( FIO2) Intake & Output 05/09/16 05/10/16 05/11/16 05/12/16 06:59 06:59 06:59 06:59 Intake Total 3723 3043 150 545 Output Total 200 270 300 Balance 3523 2773 -150 545 Patient's weight 54.573 kg 55.367 kg 54.941 kg 54.941 kg General: Alert, Oriented x3, Cooperative, No acute distress HEENT: Normal, PERRLA, EOMI, Anicteric Sclera Neck: Non-tender, Limited range of motion Lymphatics: Normal Respiratory: Normal - CTA, Diminished, Rhonchi Cardiovascular: Regular rate, Normal S1, Normal S2, Murmurs GI: Soft, Non tender, No hepatospenomegaly, No masses Extremities/Musculoskeletal: Edema, Cyanosis, DJD Skin: Warm,Dry and Intact, No rashes, No breakdown, No significant lesion Neurological: Normal speech, Cranial nerves 3-12 NL Psych/Mental Status: Anxious Lab/DI/Studies Reviewed: Laboratory Tests 05/10/16 05/11/16 05/11/16 05:32 06:51 06:51 Hgb 9.7 L D Potassium 4.7 Creatinine 3.80 H 3.70 H Total Bilirubin 3.5 H - Assessment (1) Acute renal failure (ARF) Acute N17.9 - ACUTE KIDNEY FAILURE, UNSPECIFIED Qualifiers: Acute renal failure type: unspecified Qualified Code(s): N17.9 - Acute kidney failure, unspecified Comment/Plan: Continue aggressive IV hydration. Avoid any nephrotoxins monitor. renal function with daily BMP , overall improving. (2) COPD (chronic obstructive pulmonary disease) Acute J44.9 - CHRONIC OBSTRUCTIVE PULMONARY DISEASE, UNSPECIFIED Qualifiers: Chronic bronchitis type: unspecified Comment/Plan: Monitor pulmonary status, continue DuoNeb t.i.d. acutely hours prn (3) GERD (gastroesophageal reflux disease) Acute K21.9 - GASTRO-ESOPHAGEAL REFLUX DISEASE WITHOUT ESOPHAGITIS Qualifiers: Esophagitis presence: without esophagitis Qualified Code(s): K21.9 - Gastro -esophageal reflux disease without esophagitis Comment/Plan: Continue PPI (4) Hyperbilirubinemia Acute E80.6 - OTHER DISORDERS OF BILIRUBIN METABOLISM Comment/Plan: MRCP without any evidence of bile duct stenosis or obstruction. She is currently with improved symptoms. Although she is not the best historian. Continue present care with hydration, she is tolerating a full liquid diet, will advance diet softly to low-fat. Note that her total bilirubin is improving dramatically. Continue to follow daily. (5) Nausea & vomiting Acute R11.2 - NAUSEA WITH VOMITING, UNSPECIFIED Qualifiers: Vomiting type: unspecified Vomiting Intractability: non-intractable Qualified Code(s): R11.2 - Nausea with vomiting, unspecified Comment/Plan: Use antiemetics as needed to control symptoms. (6) Schizophrenia, paranoid Acute F20.0 - PARANOID SCHIZOPHRENIA Comment/Plan: Resume Seroquel
[2016-05-11 16:37] LABS: A1 GLOBULIN 0.4 g/dL (0.0-0.4); A2 GLOBULIN 0.9 g/dL (0.4-1.0); ALBUMIN (PE) 2.5 g/dL (2.9-4.4); TOTAL PROTEIN (PE) 5.3 g/dL (6.0-8.5)
[2016-05-12] MEDS: Albuterol/Ipratropium Neb 3 ML NEB NEB SCH ×3 (01:05→16:11)
[2016-05-12] MEDS ORDERED: LORAZEPAM 2 MG/ML VIAL IV ONE ×2 (02:00→21:30)
[2016-05-12] MEDS ORDERED: NS 1,000 ML IV SCH (02:00)
[2016-05-12] MEDS ORDERED: FUROSEMIDE 20 MG/2 ML VIAL IV ONE (02:00)
[2016-05-12] MEDS: SODIUM CHLORIDE 0.9% 3 ML FLUSH FLUSH SCH ×2 (05:21→16:08)
[2016-05-12] MEDS: PANTOPRAZOLE 40 MG TAB PO SCH (05:21)
[2016-05-12 07:14] LABS: MPV 8.1 fL (7.4-10.4)
[2016-05-12] MEDS: NICOTINE 21 MG PATCH TOP SCH (08:37)
[2016-05-12] MEDS: METOPROLOL (TOPROL-XL) 25 MG TAB PO SCH (08:39)
[2016-05-12] MEDS: AMLODIPINE 10 MG TAB PO SCH (08:39)
[2016-05-12] MEDS: QUETIAPINE FUMARATE 25 MG TAB PO SCH ×2 (08:39→21:06)
[2016-05-12 09:03] LABS: BLOOD UREA NITROGEN 54 MG/DL (7-17); CALC CORRECTED 9.9 MG/DL (8.4-10.2); CALCIUM 8.1 MG/DL (8.4-10.2); CALCULATED OSMOLALITY 283 MOs/Kg (270-290); CHLORIDE 116 mEq/L (98-107); GLUCOSE 81 MG/DL (70-99); SODIUM LEVEL 140 mEq/L (137-146); TOTAL PROTEIN 5.2 G/DL (6.3-8.2)
[2016-05-12 09:38] LABS: ALLEN'S TEST PASS; BEb -17.8 (+/- 2); TCO2 8.8 MMOL/L (23-27)
[2016-05-12 09:39] LABS: ABG Draw Site Right Radial
[2016-05-12] MEDS: [UNRECOGNIZED DRUG - MIXTURE] IV SCH ×2 (10:31→18:16)
--- NOTE | 2016-05-12 13:31 | GENMEDPROG ---
Chief Complaint: Acute renal failure Subjective Note: She is resting comfortably this morning, nursing was concerned that she was a little less interactive this morning than usual. Since then, she has been awake and conversant. Notes Reviewed: Yes Events from last night noted and discussed with Clinical Staff Current Medication List: Reviewed Currently: Reports: Cough, Tobacco Use/Hx, Reflux Sx DVT Prophylaxis: Yes - Physical Examination Vital Signs and I&O: Last Vital Signs Temp 99.4 F 05/12/16 09:16 Pulse 91 05/12/16 09:14 Resp 20 05/12/16 09:14 BP 115/87 05/12/16 09:14 Pulse Ox 90 L 05/12/16 09:14 Oxygen Pulse Oxygen Saturation 90 O2 Device Venturi Mask Oxygen Flow Rate 2 Fraction of Inspired Oxygen ( 50 FIO2) Intake & Output 05/10/16 05/11/16 05/12/16 05/13/16 06:59 06:59 06:59 06:59 Intake Total 3043 150 3095 195 Output Total 270 300 750 400 Balance 2773 -150 2345 -205 Patient's weight 55.367 kg 54.941 kg 61.008 kg General: Alert, Oriented x3, Cooperative, No acute distress HEENT: Normal, PERRLA, EOMI, Anicteric Sclera Neck: Non-tender, Limited range of motion Lymphatics: Normal Respiratory: Normal - CTA, Diminished, Rhonchi Cardiovascular: Regular rate, Normal S1, Normal S2, Murmurs GI: Soft, Non tender, No hepatospenomegaly, No masses Extremities/Musculoskeletal: Edema, Cyanosis, DJD Skin: Warm,Dry and Intact, No rashes, No breakdown, No significant lesion Neurological: Normal speech, Cranial nerves 3-12 NL Lab/DI/Studies Reviewed: Laboratory Tests 05/12/16 05/12/16 05/12/16 06:37 06:37 09:35 WBC 5.2 Hgb 9.4 L Hct 29.0 L Puncture Site Right radial pH 7.200 L* pCO2 21.0 L pO2 73.0 L Sodium 140 Potassium 4.4 Chloride 116 H Carbon Dioxide 7 L* BUN 54 H Creatinine 3.40 H - Assessment (1) Acute renal failure (ARF) Acute N17.9 - ACUTE KIDNEY FAILURE, UNSPECIFIED Qualifiers: Acute renal failure type: unspecified Qualified Code(s): N17.9 - Acute kidney failure, unspecified Comment/Plan: Continue aggressive IV hydration. Avoid any nephrotoxins monitor. renal function with daily BMP , overall improving. (2) COPD (chronic obstructive pulmonary disease) Acute J44.9 - CHRONIC OBSTRUCTIVE PULMONARY DISEASE, UNSPECIFIED Qualifiers: Chronic bronchitis type: unspecified Comment/Plan: Monitor pulmonary status, continue DuoNeb t.i.d. acutely hours prn (3) GERD (gastroesophageal reflux disease) Acute K21.9 - GASTRO-ESOPHAGEAL REFLUX DISEASE WITHOUT ESOPHAGITIS Qualifiers: Esophagitis presence: without esophagitis Qualified Code(s): K21.9 - Gastro -esophageal reflux disease without esophagitis Comment/Plan: Continue PPI (4) Hyperbilirubinemia Acute E80.6 - OTHER DISORDERS OF BILIRUBIN METABOLISM Comment/Plan: MRCP without any evidence of bile duct stenosis or obstruction. She is currently with improved symptoms. Although she is not the best historian. Continue present care with hydration, she is tolerating a full liquid diet, will advance diet softly to low-fat. Note that her total bilirubin is improving dramatically. Continue to follow daily. (5) Nausea & vomiting Acute R11.2 - NAUSEA WITH VOMITING, UNSPECIFIED Qualifiers: Vomiting type: unspecified Vomiting Intractability: non-intractable Qualified Code(s): R11.2 - Nausea with vomiting, unspecified Comment/Plan: Use antiemetics as needed to control symptoms. (6) Schizophrenia, paranoid Acute F20.0 - PARANOID SCHIZOPHRENIA Comment/Plan: Resume Seroquel (7) Acidosis Acute E87.2 - ACIDOSIS Comment/Plan: I think this accounts for her slightly depressed mental status this morning. She has bicarb of only 8, ABG was checked and she has a pH of 7.2 though this is clearly metabolic acidosis. I think this is metabolic acidosis related to her renal failure, as has been progressively developing over the last several days. Will switch hydration to sodium bicarbonate 2 amps per L of fluid. Recheck bicarbonate this evening.
[2016-05-12] MEDS ORDERED: LORAZEPAM 2 MG/ML VIAL IV PRN (21:08)
[2016-05-12 22:13] LABS: BLOOD UREA NITROGEN 54 MG/DL (7-17); CALCIUM 8.3 MG/DL (8.4-10.2); CALCULATED OSMOLALITY 285 MOs/Kg (270-290); CHLORIDE 115 mEq/L (98-107); GLUCOSE 115 MG/DL (70-99); SODIUM LEVEL 140 mEq/L (137-146)
[2016-05-13] MEDS: Albuterol/Ipratropium Neb 3 ML NEB NEB SCH ×4 (00:49→23:02)
[2016-05-13] MEDS: [UNRECOGNIZED DRUG - MIXTURE] IV SCH ×6 (02:14→22:21)
[2016-05-13] MEDS: PANTOPRAZOLE 40 MG TAB PO SCH (05:37)
[2016-05-13] MEDS: SODIUM CHLORIDE 0.9% 3 ML FLUSH FLUSH SCH ×2 (05:37→15:45)
[2016-05-13] MEDS: NICOTINE 21 MG PATCH TOP SCH (09:28)
[2016-05-13] MEDS: METOPROLOL (TOPROL-XL) 25 MG TAB PO SCH (09:30)
[2016-05-13] MEDS: AMLODIPINE 10 MG TAB PO SCH (09:30)
[2016-05-13] MEDS: QUETIAPINE FUMARATE 25 MG TAB PO SCH ×2 (09:30→21:21)
[2016-05-13 10:53] LABS: MPV 8.5 fL (7.4-10.4)
[2016-05-13 11:09] LABS: CALC CORRECTED 9.7 MG/DL (8.4-10.2); CALCIUM 7.9 MG/DL (8.4-10.2); CREATININE 2.5 MG/DL (0.52-1.04); TOTAL PROTEIN 5.1 G/DL (6.3-8.2)
--- NOTE | 2016-05-13 12:39 | GENMEDPROG ---
Chief Complaint: Acute renal failure Subjective Note: Resting comfortably in her room this morning. She is more alert and awake and communicative this morning. Denies any chest pain or shortness of breath, or nausea. Currently: Reports: Cough, Tobacco Use/Hx, Reflux Sx DVT Prophylaxis: Yes - Physical Examination Vital Signs and I&O: Last Vital Signs Temp 97.8 F 05/13/16 09:31 Pulse 99 05/13/16 09:31 Resp 21 05/13/16 09:31 BP 136/73 05/13/16 09:31 Pulse Ox 94 05/13/16 09:31 Oxygen Pulse Oxygen Saturation 94 O2 Device Venturi Mask Oxygen Flow Rate 2 Fraction of Inspired Oxygen ( 50 FIO2) Intake & Output 05/11/16 05/12/16 05/13/16 05/14/16 06:59 06:59 06:59 06:59 Intake Total 150 3095 2861 120 Output Total 304 823 1801 275 Balance -150 2345 1561 -155 Patient's weight 54.941 kg 61.008 kg 62.341 kg General: Alert, Oriented x3, Cooperative, No acute distress HEENT: Normal, PERRLA, EOMI, Anicteric Sclera Neck: Non-tender, Limited range of motion Lymphatics: Normal Respiratory: Normal - CTA, Diminished, Rhonchi Cardiovascular: Regular rate, Normal S1, Normal S2, Murmurs GI: Soft, Non tender, No hepatospenomegaly, No masses Extremities/Musculoskeletal: Edema, Cyanosis, DJD Skin: Warm,Dry and Intact, No rashes, No breakdown, No significant lesion Neurological: Normal speech, Cranial nerves 3-12 NL Lab/DI/Studies Reviewed: Laboratory Tests 05/12/16 05/12/16 05/13/16 06:37 21:25 10:37 Hgb Plt Count Potassium 3.7 Carbon Dioxide 7 L* 13 L 15 L BUN 51 H Creatinine 3.40 H 3.10 H 2.50 H 05/13/16 10:37 Hgb 8.5 L Plt Count 163 Potassium Carbon Dioxide BUN Creatinine - Assessment (1) Acute renal failure (ARF) Acute N17.9 - ACUTE KIDNEY FAILURE, UNSPECIFIED Qualifiers: Acute renal failure type: unspecified Qualified Code(s): N17.9 - Acute kidney failure, unspecified Comment/Plan: Continue aggressive IV hydration. Avoid any nephrotoxins monitor. renal function with daily BMP , overall improving each day. (2) COPD (chronic obstructive pulmonary disease) Acute J44.9 - CHRONIC OBSTRUCTIVE PULMONARY DISEASE, UNSPECIFIED Qualifiers: Chronic bronchitis type: unspecified Comment/Plan: Monitor pulmonary status, continue DuoNeb t.i.d. acutely hours prn (3) GERD (gastroesophageal reflux disease) Acute K21.9 - GASTRO-ESOPHAGEAL REFLUX DISEASE WITHOUT ESOPHAGITIS Qualifiers: Esophagitis presence: without esophagitis Qualified Code(s): K21.9 - Gastro -esophageal reflux disease without esophagitis Comment/Plan: Continue PPI (4) Hyperbilirubinemia Acute E80.6 - OTHER DISORDERS OF BILIRUBIN METABOLISM Comment/Plan: MRCP without any evidence of bile duct stenosis or obstruction. She is currently with improved symptoms. Although she is not the best historian. Continue present care with hydration, she is tolerating a diet so will advance today. (5) Nausea & vomiting Acute R11.2 - NAUSEA WITH VOMITING, UNSPECIFIED Qualifiers: Vomiting type: unspecified Vomiting Intractability: non-intractable Qualified Code(s): R11.2 - Nausea with vomiting, unspecified Comment/Plan: Use antiemetics as needed to control symptoms. (6) Schizophrenia, paranoid Acute F20.0 - PARANOID SCHIZOPHRENIA Comment/Plan: Resume Seroquel (7) Acidosis Acute E87.2 - ACIDOSIS Comment/Plan: She has some changes in mental status associated with impressive metabolic acidosis, this is improving today with bicarb administration which will continue for 1 more day. Likely related to her renal failure.
[2016-05-13 15:41] VITALS: BMI 22.8
[2016-05-13] MEDS ORDERED: ACETAMINOPHEN 325 MG/TAB TABLET PO PRN (21:16)
[2016-05-13] MEDS ORDERED: ACETAMINOPHEN 650 MG SUPP PR PRN (21:17)
[2016-05-13] MEDS: LORAZEPAM 2 MG/ML VIAL IV PRN (21:23)
[2016-05-14] MEDS: [UNRECOGNIZED DRUG - MIXTURE] IV SCH ×5 (02:43→22:53)
[2016-05-14 05:50] LABS: MPV 8.6 fL (7.4-10.4)
[2016-05-14] MEDS: PANTOPRAZOLE 40 MG TAB PO SCH (06:13)
[2016-05-14] MEDS: SODIUM CHLORIDE 0.9% 3 ML FLUSH FLUSH SCH ×2 (06:13→15:40)
[2016-05-14 06:20] LABS: BLOOD UREA NITROGEN 46 MG/DL (7-17); CALCIUM 7.8 MG/DL (8.4-10.2); CALCULATED OSMOLALITY 290 MOs/Kg (270-290); CHLORIDE 111 mEq/L (98-107); GLUCOSE 114 MG/DL (70-99); SODIUM LEVEL 144 mEq/L (137-146)
[2016-05-14] MEDS: Albuterol/Ipratropium Neb 3 ML NEB NEB SCH ×2 (07:49→16:09)
--- NOTE | 2016-05-14 08:09 | GENMEDPROG ---
Chief Complaint: HYPERBILIRUBINEMIA, LOLA, COPD, N&V, POSSIBLE MEDICATION REACTION Currently: Reports: Cough, Tobacco Use/Hx, Reflux Sx DVT Prophylaxis: Yes - Physical Examination Vital Signs and I&O: Last Vital Signs Temp 97.7 F 05/14/16 05:53 Pulse 93 05/14/16 05:53 Resp 18 05/14/16 05:53 BP 136/77 05/14/16 05:53 Pulse Ox 96 05/14/16 07:50 Oxygen Pulse Oxygen Saturation 96 O2 Device Venturi Mask Oxygen Flow Rate 12 Fraction of Inspired Oxygen ( 55 FIO2) Intake & Output 05/11/16 05/12/16 05/13/16 05/14/16 23:59 23:59 23:59 23:59 Intake Total 2626 2321 3527 993 Output Total 1900 926 200 Balance 2626 421 2601 793 Patient's weight 54.941 kg 61.008 kg 62.341 kg 63.548 kg General: Alert, Oriented x3, Cooperative, No acute distress HEENT: Normal, PERRLA, EOMI, Anicteric Sclera Neck: Non-tender, Limited range of motion Lymphatics: Normal Respiratory: Normal - CTA, Diminished, Rhonchi Cardiovascular: Regular rate, Normal S1, Normal S2, Murmurs GI: Soft, Non tender, No hepatospenomegaly, No masses Extremities/Musculoskeletal: Edema, Cyanosis, DJD Skin: Warm,Dry and Intact, No rashes, No breakdown, No significant lesion Neurological: Normal speech, Cranial nerves 3-12 NL Psych/Mental Status: Cooperative, Confused, Lethargic Lab/DI/Studies Reviewed: Laboratory Tests 05/14/16 05/14/16 05:20 05:20 WBC 4.4 Hgb 8.3 L Hct 24.5 L Plt Count 166 Total Bilirubin 1.0 Direct Bilirubin 1.00 H AST 22 ALT 33 Alkaline Phosphatase 260 H Total Protein 5.0 L Albumin 2.2 L - Assessment (1) Acute renal failure (ARF) Acute N17.9 - ACUTE KIDNEY FAILURE, UNSPECIFIED Qualifiers: Acute renal failure type: unspecified Qualified Code(s): N17.9 - Acute kidney failure, unspecified Comment/Plan: Continue aggressive IV hydration. Avoid any nephrotoxins monitor. renal function with daily BMP , overall improving each day. (2) Anemia Acute D64.9 - ANEMIA, UNSPECIFIED Qualifiers: Anemia type: iron deficiency Iron deficiency anemia type: chronic blood loss Qualified Code(s): D50.0 - Iron deficiency anemia secondary to blood loss (chronic) Comment/Plan: Patient has heme + stools, gradually decreasing H/H, will continue to observe. If remains fairly stable can pursue as outpatient. (3) Hyperbilirubinemia Acute E80.6 - OTHER DISORDERS OF BILIRUBIN METABOLISM Comment/Plan: MRCP without any evidence of bile duct stenosis or obstruction. She is currently with improved symptoms. Although she is not the best historian. Continue present care with hydration, she is tolerating a diet so will advance today. (4) Abnormal EKG Acute R94.31 - ABNORMAL ELECTROCARDIOGRAM [ECG] [EKG] Comment/Plan: Needs magnesiium and potassium replacement, but so far no significant arrhythmias. She has denied any chest pain. Hx of aortic valve replacement (apparently with bioprosthetic valve- because she is not anticoagulated). Also has history of coronary artery disease. (5) Dehydration Resolved E86.0 - DEHYDRATION Comment/Plan: Continue IV fluids monitor hemodynamics.. (6) Toxic metabolic encephalopathy Resolved G92 - TOXIC ENCEPHALOPATHY Comment/Plan: Continue supportive care , avoid excessive sedation and anticholinergics.. (7) Schizophrenia, paranoid Acute F20.0 - PARANOID SCHIZOPHRENIA Comment/Plan: Resume Seroquel (8) Nausea & vomiting Resolved R11.2 - NAUSEA WITH VOMITING, UNSPECIFIED Qualifiers: Vomiting type: unspecified Vomiting Intractability: non-intractable Qualified Code(s): R11.2 - Nausea with vomiting, unspecified Comment/Plan: Use antiemetics as needed to control symptoms.
[2016-05-14] MEDS: NICOTINE 21 MG PATCH TOP SCH (08:35)
[2016-05-14] MEDS: METOPROLOL (TOPROL-XL) 25 MG TAB PO SCH (08:36)
[2016-05-14] MEDS: QUETIAPINE FUMARATE 25 MG TAB PO SCH ×2 (08:36→20:21)
[2016-05-14] MEDS: AMLODIPINE 10 MG TAB PO SCH (08:36)
[2016-05-14] MEDS ORDERED: POTASSIUM CHLORIDE 20 MEQ/15 ML ORAL SOLN PO ONE (11:00)
[2016-05-14] MEDS: LORAZEPAM 2 MG/ML VIAL IV PRN (11:15)
[2016-05-14] MEDS: Magnesium Sulfate 2 gm/D5W 2 GM/50 ML RTU IV SCH ×2 (11:19→13:02)
[2016-05-14] MEDS ORDERED: Albuterol/Ipratropium Neb 3 ML NEB NEB ONE ×2 (13:02→19:16)
[2016-05-14 16:38] LABS: GAMMA GLOBULIN, UR 14.6 % (.); M-SPIKE %, UR 3.5 % (Not Observed)
[2016-05-14] MEDS: POTASSIUM CHLORIDE 20 MEQ TAB PO SCH (17:50)
[2016-05-14] MEDS: KCl 10 mEq/100 ml Premix (Run) 10 MEQ/100 ML RTU IV SCH ×5 (17:52→22:51)
[2016-05-15] MEDS: KCl 10 mEq/100 ml Premix (Run) 10 MEQ/100 ML RTU IV SCH (00:25)
[2016-05-15] MEDS: Albuterol/Ipratropium Neb 3 ML NEB NEB SCH ×4 (02:07→23:15)
[2016-05-15] MEDS: LORAZEPAM 2 MG/ML VIAL IV PRN (02:12)
[2016-05-15] MEDS: [UNRECOGNIZED DRUG - MIXTURE] IV SCH ×3 (04:20→17:00)
[2016-05-15] MEDS: PANTOPRAZOLE 40 MG TAB PO SCH (05:38)
[2016-05-15] MEDS: SODIUM CHLORIDE 0.9% 3 ML FLUSH FLUSH SCH ×2 (05:38→16:50)
[2016-05-15 06:09] LABS: MPV 8.8 fL (7.4-10.4)
[2016-05-15 06:44] LABS: BLOOD UREA NITROGEN 41 MG/DL (7-17); CALC CORRECTED 9.5 MG/DL (8.4-10.2); CALCIUM 7.7 MG/DL (8.4-10.2); CALCULATED OSMOLALITY 288 MOs/Kg (270-290); CHLORIDE 108 mEq/L (98-107); GLUCOSE 121 MG/DL (70-99); SODIUM LEVEL 144 mEq/L (137-146); TOTAL PROTEIN 5.1 G/DL (6.3-8.2)
[2016-05-15] MEDS ORDERED: ONDANSETRON HCL 4 MG/2 ML VIAL IV PRN (07:06)
[2016-05-15] MEDS ORDERED: BENZONATATE 100 MG PERLES PO PRN (07:11)
[2016-05-15] MEDS ORDERED: DOCUSATE-SENNA CONCENTRATE TAB PO PRN (07:16)
[2016-05-15] MEDS ORDERED: PROMETHAZINE 25 MG/ML VIAL IV PRN (07:17)
[2016-05-15] MEDS ORDERED: TEMAZEPAM 15 MG CAP PO PRN (07:23)
[2016-05-15] MEDS ORDERED: SIMETHICONE 80 MG TAB PO PRN (07:28)
[2016-05-15] MEDS ORDERED: SODIUM CHLORIDE 0.9% 3 ML FLUSH FLUSH PRN (07:29)
[2016-05-15] MEDS ORDERED: Albuterol/Ipratropium Neb 3 ML NEB NEB ONE ×2 (07:37→13:18)
[2016-05-15] MEDS: AMLODIPINE 10 MG TAB PO SCH (08:16)
[2016-05-15] MEDS: NICOTINE 21 MG PATCH TOP SCH (08:16)
[2016-05-15] MEDS: QUETIAPINE FUMARATE 25 MG TAB PO SCH ×2 (08:16→21:55)
[2016-05-15] MEDS: METOPROLOL (TOPROL-XL) 25 MG TAB PO SCH (08:16)
[2016-05-15] MEDS: POTASSIUM CHLORIDE 20 MEQ TAB PO SCH ×2 (08:16→16:50)
--- NOTE | 2016-05-15 09:22 | GENMEDPROG ---
Chief Complaint: worsening anemia, ARF, hyperbilirubinemia, electrolyte abnormalities. Subjective Note: Patient has apparent slow GI bleed- will consult GI Currently: Reports: Cough, Tobacco Use/Hx, Reflux Sx DVT Prophylaxis: Yes - Physical Examination Vital Signs and I&O: Last Vital Signs Temp 98.7 F 05/15/16 09:00 Pulse 91 05/15/16 09:00 Resp 22 05/15/16 09:00 BP 113/66 05/15/16 09:00 Pulse Ox 86 L 05/15/16 09:00 Oxygen Pulse Oxygen Saturation 86 O2 Device Nasal Cannula Oxygen Flow Rate 5 Fraction of Inspired Oxygen ( 55 FIO2) Intake & Output 05/12/16 05/13/16 05/14/16 05/15/16 23:59 23:59 23:59 23:59 Intake Total 2321 3527 2274 1123 Output Total 1900 926 850 300 Balance 421 2601 1424 823 Patient's weight 61.008 kg 62.341 kg 63.548 kg 64.093 kg General: Alert, Oriented x3, Cooperative, No acute distress HEENT: Normal, PERRLA, EOMI, Anicteric Sclera Neck: Non-tender, Limited range of motion Lymphatics: Normal Respiratory: Normal - CTA, Diminished, Rhonchi Cardiovascular: Regular rate, Normal S1, Normal S2, Murmurs GI: Soft, Non tender, No hepatospenomegaly, No masses Extremities/Musculoskeletal: Edema, Cyanosis, DJD Skin: Warm,Dry and Intact, No rashes, No breakdown, No significant lesion Neurological: Normal speech, Cranial nerves 3-12 NL Psych/Mental Status: Cooperative, Confused, Lethargic Lab/DI/Studies Reviewed: Laboratory Tests 05/08/16 05/12/16 05/15/16 14:26 06:37 05:15 WBC 15.0 H 4.2 Hgb 14.5 7.7 L Hct 43.5 22.4 L Plt Count 396 178 Sodium 140 Potassium 4.4 Chloride 116 H Carbon Dioxide 7 L* Anion Gap 21 H BUN 54 H Creatinine 3.40 H Estimated GFR (MDRD) 14 L Glucose 81 Calculated Osmolality 283 Calcium 8.1 L Corrected Calcium 9.9 Total Bilirubin 2.4 H AST 20 ALT 29 Alkaline Phosphatase 269 H Total Protein 5.2 L Albumin 2.2 L Laboratory Tests 05/15/16 05:15 Sodium 144 Potassium 3.7 Chloride 108 H Carbon Dioxide 24 Anion Gap 16 BUN 41 H Creatinine 1.60 H Estimated GFR (MDRD) 33 L Glucose 121 H Calculated Osmolality 288 Calcium 7.7 L Corrected Calcium 9.5 Total Bilirubin 0.8 AST 22 ALT 31 Alkaline Phosphatase 241 H Total Protein 5.1 L Albumin 2.2 L - Assessment (1) Acute renal failure (ARF) Acute N17.9 - ACUTE KIDNEY FAILURE, UNSPECIFIED Qualifiers: Acute renal failure type: unspecified Qualified Code(s): N17.9 - Acute kidney failure, unspecified Comment/Plan: Continue aggressive IV hydration. Avoid any nephrotoxins monitor. renal function with daily BMP , overall improving each day. (2) Anemia Acute D64.9 - ANEMIA, UNSPECIFIED Qualifiers: Anemia type: iron deficiency Iron deficiency anemia type: chronic blood loss Qualified Code(s): D50.0 - Iron deficiency anemia secondary to blood loss (chronic) Comment/Plan: Patient has heme + stools, gradually decreasing H/H, will continue to observe. will need to transfuse 2 units today, consult GI for further evaluation. Patient's Hg has dropped from 14 to 7 since admission. (3) Hyperbilirubinemia Resolved E80.6 - OTHER DISORDERS OF BILIRUBIN METABOLISM Comment/Plan: MRCP without any evidence of bile duct stenosis or obstruction. She is currently with improved symptoms. Although she is not the best historian. Continue present care with hydration, she is tolerating a diet so will advance today. (4) Abnormal EKG Acute R94.31 - ABNORMAL ELECTROCARDIOGRAM [ECG] [EKG] Comment/Plan: Needs magnesiium and potassium replacement, but so far no significant arrhythmias. She has denied any chest pain. Hx of aortic valve replacement (apparently with bioprosthetic valve- because she is not anticoagulated). Also has history of coronary artery disease. (5) Dehydration Resolved E86.0 - DEHYDRATION Comment/Plan: Continue IV fluids monitor hemodynamics.. (6) Toxic metabolic encephalopathy Resolved G92 - TOXIC ENCEPHALOPATHY Comment/Plan: Continue supportive care , avoid excessive sedation and anticholinergics.. (7) Schizophrenia, paranoid Acute F20.0 - PARANOID SCHIZOPHRENIA Comment/Plan: Resume Seroquel (8) Nausea & vomiting Resolved R11.2 - NAUSEA WITH VOMITING, UNSPECIFIED Qualifiers: Vomiting type: unspecified Vomiting Intractability: non-intractable Qualified Code(s): R11.2 - Nausea with vomiting, unspecified Comment/Plan: Use antiemetics as needed to control symptoms.
[2016-05-15] MEDS ORDERED: ETOMIDATE 20 MG/10 ML VIAL IV ONE (10:00)
--- NOTE | 2016-05-15 17:09 | PCM.CONSGI ---
Consult Date: 05/15/16 Consult Requesting Physician: Brigette Farley Consult Reason: Abdominal Pain, Anemia - History of Present Illness 60-year-old white female was a very poor historian with decreasing hemoglobin of 9.7 to 7.7 over appeared of 5 days. She has been having some blood in the stool and had heme-positive stools. She also has history of nausea vomiting specially on admission. This was attributed to acute on chronic renal failure as well. She gives vague symptoms of dysphagia especially to pills. She also has significant heartburn intermittently. She has chronic abdominal pain mostly around the umbilicus. She would occasionally have constipation. Lately she has been having intermittent diarrhea. She could not tell me if she ever had EGD and colonoscopy performed. She had some kind of endoscopic procedures in [place]. I have discussed with hence son was also not aware of any endoscopic procedures previously. Her renal function is gradually getting better - Past Medical History Cardiac History: Reports: Coronary Artery Disease, Hypertension, CABG (w/ aortic valve replacement) Respiratory History: Reports: COPD GI/ History: Reports: GERD, Renal Failure Musculoskeletal History: Reports: Arthritis Systemic History: Reports: Hypothyroidism Psychological History: Reports: Bipolar Disorder, Schizophrenia. Denies: Alcoholism, Substance Use Disorder - Surgical History Past Surgical History: Reports: CABG (w/ aortic valve replacement), Cholecystectomy, T&A, Other ([facility]) - Family History Family History: Reports: Cardiac Disorders, Respiratory Disorders - Allergies Allergies No Known Allergies Allergy (Verified 03/07/16 14:48) - Medications Home Medications Amlodipine [Norvasc] 10 mg PO DAILY 03/07/16 Amoxicillin Trihydrate [Amoxicillin] 500 mg PO TID #30 tab 03/07/16 Ciprofloxacin HCl [Cipro] 500 mg PO BID #20 tab 03/07/16 Furosemide [Lasix] 20 mg PO DAILY PRN 03/07/16 Levothyroxine Sodium 25 mcg PO DAILY 03/07/16 Lisinopril [Prinivil] 10 mg PO DAILY 03/07/16 Metoprolol Succinate (XL) [Toprol Xl] 12.5 mg PO DAILY 03/07/16 Omeprazole 20 mg PO DAILY 03/07/16 Pantoprazole Sodium [Protonix] 40 mg PO DAILY #30 tab 03/07/16 Quetiapine Fumarate [Seroquel] 50 mg PO BID #60 tab 03/07/16 - Social History Lives: Alone Smoking Status: Heavy tobacco smoker (5 or more cigarettes/day or daily pipe/ cigar) (1 1/2 ppd) Social History: Denies: Alcohol Use, Cocaine Use, Marijuana Use, Substance Use Disorder - Review of Systems Constitutional: Other (No night sweats.). negative: Chills, Fever, Weight loss (Recent) Mouth: negative: Pain Cardiovascular: negative: Chest Pain, Orthopnea, PND Gastrointestinal: Other (No jaundice, dark urine or pale stools.) Genitourinary: Other (Denies polyuria.). negative: Dysuria Neurological: Other (Denies loss of consciousness.). negative: Seizure Allergic/Immunologic: negative: Hives, Itching Hematologic: negative: Easy Bruising - Exam Vital Signs: Temperature: 98.5 F (05/15/16 16:27) HR: 101 (05/15/16 16:27) RR: 22 (05/15/16 16:27) BP: 129/72 (05/15/16 16:27) Pulse Ox: 92 (05/15/16 16:27) General: Alert, Oriented x3, Cooperative, No acute distress HEENT: Normal, Other (No Jaundice). negative: Pallor Cardiovascular: Normal S1, Normal S2, Other (No S3 or S4.). negative: No murmurs Gastrointestinal: Soft, Bowel Sounds (normal), Other (No ascites.). negative: Tender, Guarding, Rigid, Hepatosplenomegaly Extremities: Normal pulses. negative: Swelling, Edema Skin: Warm,Dry and Intact Neurological: Normal speech, Other (No focal neurologic deficits.) Psych/Mental Status: Normal Affect, Cooperative - Labs Result Diagrams: 05/16/16 08:45 05/16/16 08:45 Laboratory Tests 05/08/16 05/08/16 05/09/16 14:26 15:42 06:04 WBC 7.8 RBC 4.28 Hgb 11.6 L D MCV 83 Plt Count PT 13.3 H INR 1.3 APTT 19.4 L pH Sodium 135 L Potassium 4.5 Chloride 101 Carbon Dioxide 14 L Anion Gap 25 H BUN 52 H Creatinine 4.30 H Estimated GFR (MDRD) 11 L Glucose 60 L Calcium Magnesium Total Bilirubin AST ALT Alkaline Phosphatase Albumin U PEP M-Guy Stool Occult Blood 05/09/16 05/12/16 05/12/16 20:20 09:35 21:10 WBC RBC Hgb MCV Plt Count PT INR APTT pH 7.200 L* Sodium Potassium Chloride Carbon Dioxide Anion Gap BUN Creatinine Estimated GFR (MDRD) Glucose Calcium Magnesium Total Bilirubin AST ALT Alkaline Phosphatase Albumin U PEP M-Guy 3.5 H Stool Occult Blood Pos H 05/14/16 05/14/16 05/14/16 05:20 05:20 05:20 WBC 4.4 RBC Hgb 8.3 L MCV 81 Plt Count 166 PT INR APTT pH Sodium Potassium Chloride Carbon Dioxide Anion Gap BUN 46 H Creatinine 2.10 H Estimated GFR (MDRD) 24 L Glucose 114 H Calcium 7.8 L Magnesium Total Bilirubin 1.0 AST 22 ALT 33 Alkaline Phosphatase 260 H Albumin 2.2 L U PEP M-Guy Stool Occult Blood 05/15/16 05/15/16 05/15/16 05:15 05:15 05:15 WBC 4.2 RBC Hgb 7.7 L MCV 82 Plt Count 178 PT INR APTT pH Sodium Potassium Chloride Carbon Dioxide Anion Gap BUN 41 H Creatinine 1.60 H Estimated GFR (MDRD) 33 L Glucose 121 H Calcium 7.7 L Magnesium 2.00 Total Bilirubin 0.8 AST 22 ALT 31 Alkaline Phosphatase 241 H Albumin 2.2 L U PEP M-Guy Stool Occult Blood Exam(s): [id number] MRI/MRCP W/O CONTRAST CLINICAL DATA: Vomiting for 1 month. Evaluate for common bile duct obstruction. EXAM: MRI ABDOMEN WITHOUT CONTRAST (INCLUDING MRCP) TECHNIQUE: Multiplanar multisequence MR imaging of the abdomen was performed. Heavily T2-weighted images of the biliary and pancreatic ducts were obtained, and three-dimensional MRCP images were rendered by post processing. COMPARISON: 03/07/2016 FINDINGS: Lower chest: A small amount of pleural fluid is noted bilaterally. Hepatobiliary: There is mild diffuse hepatic steatosis noted. No focal liver abnormality identified. Previous cholecystectomy. There is no intrahepatic bile duct dilatation identified. The common bile duct is mildly prominent with a maximum diameter of 5 mm. This is within normal limits in a patient who is status post cholecystectomy. No obstructing stone is identified within the common bile duct. Within the limitations of noncontrast technique no mass is identified. Pancreas: There is no pancreatic duct dilatation identified. No focal pancreas abnormality identified. Spleen: Negative Adrenals/Urinary Tract: No focal adrenal abnormality identified. There is a cyst within the mid left kidney which measures 1.4 cm, image 26 of series 7. No obstructive uropathy is identified. Stomach/Bowel: The stomach appears normal. The upper abdominal bowel loops appear increased in caliber. Small bowel air-fluid levels are noted. There appears to be edema involving the wall of the colon. Vascular/Lymphatic: Normal caliber of the abdominal aorta. Aortic atherosclerosis is again noted. No adenopathy identified. Other: There is diffuse body wall edema, ascites and mesenteric and retroperitoneal edema. Musculoskeletal: No suspicious bone abnormalities identified. IMPRESSION: 1. No evidence for biliary obstruction. The common bile duct is normal in caliber for a patient who is status post cholecystectomy. There is no intrahepatic bile duct dilatation. 2. Anasarca and ascites. 3. Aortic atherosclerosis 4. Mild increase caliber of the bowel loops, etiology uncertain. There is also mild edema involving the wall of the colon which may be secondary to anasarca. Correlate for any clinical signs or symptoms of enteritis or colitis. 5. Hepatic steatosis. - Assessment and Plan (1) Nausea & vomiting Resolved R11.2 - NAUSEA WITH VOMITING, UNSPECIFIED unspecified non-intractable R11.2 - Nausea with vomiting, unspecified Comment: With negative ultrasound and MRCP, could be because of acute on chronic renal failure. Patient with severe acidosis on admission (2) Anemia Acute D64.9 - ANEMIA, UNSPECIFIED iron deficiency chronic blood loss D50.0 - Iron deficiency anemia secondary to blood loss (chronic) Comment: Due to combination of renal insufficiency, GI bleed, may have bone marrow suppression, also has M spike ?? Importance (3) Acute renal failure (ARF) Acute N17.9 - ACUTE KIDNEY FAILURE, UNSPECIFIED unspecified N17.9 - Acute kidney failure, unspecified (4) COPD (chronic obstructive pulmonary disease) Acute J44.9 - CHRONIC OBSTRUCTIVE PULMONARY DISEASE, UNSPECIFIED unspecified (5) GERD (gastroesophageal reflux disease) Acute K21.9 - GASTRO-ESOPHAGEAL REFLUX DISEASE WITHOUT ESOPHAGITIS without esophagitis K21.9 - Gastro-esophageal reflux disease without esophagitis (6) Schizophrenia, paranoid Acute F20.0 - PARANOID SCHIZOPHRENIA (7) Toxic metabolic encephalopathy Resolved G92 - TOXIC ENCEPHALOPATHY (8) Hyperbilirubinemia Resolved E80.6 - OTHER DISORDERS OF BILIRUBIN METABOLISM Recommendations: 1. agree to transfuse to hemoglobin about 8-9. 2. Hold off on all nonsteroidals, Lovenox for now 3. IV Protonix 4. EGD in a.m. 5. If negative, would need colonoscopy. Patient was not keen on getting a colonoscopy performed. I have reviewed the nursing notes and they do reveal some rectal bleeding. 6. Agree with hematology consultation specially given that she had M spike. 7. If she has any active bleeding, then will give her 1 dose of DDAVP.
[2016-05-15] MEDS ORDERED: NS 1,000 ML IV SCH (17:36)
[2016-05-15] MEDS ORDERED: FUROSEMIDE 40 MG/4 ML VIAL IV ONE (23:38)
[2016-05-16] MEDS: PANTOPRAZOLE 40 MG TAB PO SCH (05:35)
[2016-05-16] MEDS: SODIUM CHLORIDE 0.9% 3 ML FLUSH FLUSH SCH ×2 (05:37→18:01)
[2016-05-16] MEDS ORDERED: Albuterol/Ipratropium Neb 3 ML NEB NEB ONE (07:20)
[2016-05-16] MEDS: NICOTINE 21 MG PATCH TOP SCH (08:14)
[2016-05-16] MEDS: METOPROLOL (TOPROL-XL) 25 MG TAB PO SCH ×2 (08:17→09:08)
[2016-05-16] MEDS: AMLODIPINE 10 MG TAB PO SCH ×2 (08:18→09:09)
[2016-05-16] MEDS: QUETIAPINE FUMARATE 25 MG TAB PO SCH ×3 (08:18→19:40)
[2016-05-16] MEDS: POTASSIUM CHLORIDE 20 MEQ TAB PO SCH ×3 (08:18→18:26)
[2016-05-16] MEDS: Albuterol/Ipratropium Neb 3 ML NEB NEB SCH ×3 (08:27→23:37)
[2016-05-16] MEDS ORDERED: Albuterol/Ipratropium Neb 3 ML NEB NEB PRN (08:32)
[2016-05-16 09:27] LABS: MPV 9.1 fL (7.4-10.4)
[2016-05-16 09:30] LABS: BLOOD UREA NITROGEN 43 MG/DL (7-17); CALCULATED OSMOLALITY 290 MOs/Kg (270-290); CHLORIDE 108 mEq/L (98-107); GLUCOSE 93 MG/DL (70-99); SODIUM LEVEL 145 mEq/L (137-146)
--- NOTE | 2016-05-16 09:56 | GENMEDPROG ---
Chief Complaint: GI bleed, anemia due to blood loss, LOLA, hyperbilirubinemia, Subjective Note: PATIENT AGITATED & THREATENING TO LEAVE IF SHE CAN'T GET OUT OF BED. WANTS TO WALK. Currently: Reports: Cough, Tobacco Use/Hx, Reflux Sx DVT Prophylaxis: Yes - Physical Examination Vital Signs and I&O: Last Vital Signs Temp 98.7 F 05/16/16 08:54 Pulse 83 05/16/16 08:54 Resp 20 05/16/16 08:54 BP 135/71 05/16/16 08:54 Pulse Ox 93 05/16/16 08:54 Oxygen Pulse Oxygen Saturation 93 O2 Device Venturi Mask Oxygen Flow Rate 5 Fraction of Inspired Oxygen ( 45 FIO2) Intake & Output 05/13/16 05/14/16 05/15/16 05/16/16 23:59 23:59 23:59 23:59 Intake Total 3527 2274 3144 912 Output Total 926 092 440 0462 Balance 2601 9505 5921 -129 Patient's weight 62.341 kg 63.548 kg 64.093 kg 67.358 kg General: Alert, Oriented x3, Cooperative, No acute distress HEENT: Normal, PERRLA, EOMI, Anicteric Sclera Neck: Non-tender, Limited range of motion Lymphatics: Normal Respiratory: Normal - CTA, Diminished, Rhonchi Cardiovascular: Regular rate, Normal S1, Normal S2, Murmurs GI: Soft, Non tender, No hepatospenomegaly, No masses Extremities/Musculoskeletal: Edema, Cyanosis, DJD Skin: Warm,Dry and Intact, No rashes, No breakdown, No significant lesion Neurological: Normal tone, Cranial nerves 3-12 NL. negative: Normal speech ( GARBLED) Psych/Mental Status: Cooperative, Agitated, Confused, Lethargic Lab/DI/Studies Reviewed: Laboratory Tests 05/09/16 05/15/16 05/15/16 20:20 05:15 05:15 WBC 4.2 Hgb 7.7 L Hct 22.4 L Plt Count 178 Sodium 144 Potassium 3.7 Chloride 108 H Carbon Dioxide 24 Anion Gap 16 BUN 41 H Creatinine 1.60 H Estimated GFR (MDRD) 33 L Glucose 121 H Calculated Osmolality 288 Calcium Corrected Calcium 9.5 Magnesium Total Bilirubin 0.8 AST 22 ALT 31 Alkaline Phosphatase 241 H Total Protein 5.1 L Albumin 2.2 L Urine Total Protein 110.2 Stool Occult Blood 05/15/16 05/15/16 05/16/16 05:15 17:10 03:16 WBC Hgb 10.0 L D Hct 29.5 L Plt Count Sodium Potassium Chloride Carbon Dioxide Anion Gap BUN Creatinine Estimated GFR (MDRD) Glucose Calculated Osmolality Calcium Corrected Calcium Magnesium 2.00 Total Bilirubin AST ALT Alkaline Phosphatase Total Protein Albumin Urine Total Protein Stool Occult Blood Pos H 05/16/16 05/16/16 08:45 08:45 WBC 3.9 Hgb Hct Plt Count 173 Sodium 145 Potassium 4.1 Chloride 108 H Carbon Dioxide 27 Anion Gap 14 BUN 43 H Creatinine 1.40 H Estimated GFR (MDRD) 38 L Glucose 93 Calculated Osmolality 290 Calcium 8.0 L Corrected Calcium Magnesium Total Bilirubin AST ALT Alkaline Phosphatase Total Protein Albumin Urine Total Protein Stool Occult Blood Microbiology 05/09/16 20:20 Stool Stool Consistency (JUAN LUIS) - Final 05/09/16 20:20 Stool Clostridium difficile 027 (PCR) - Final NEGATIVE A single negative test for C. difficile indicates the likelihood that this organism is causing the diarrheal illness is extremely low. Therefore, repeat testing is strongly discouraged. If a new diarrheal illness occurs more than 7 days after the initial negative test, then sending a single repeat specimen may be indicated. ([employer] C. difficile/Epi by PCR: Performance characteristics have not been established for patients <2 years of age - per java integration developer limitations.) PRESUMPTIVE NEGATIVE (For in vitro diagnostic use only. 027-NAP1-BI results are NOT intended to guide treatment of C. difficile infections. (Infection Control Hosp Epidemiol 2010;31:431-455) ) - Assessment (1) Acute renal failure (ARF) Acute N17.9 - ACUTE KIDNEY FAILURE, UNSPECIFIED Qualifiers: Acute renal failure type: unspecified Qualified Code(s): N17.9 - Acute kidney failure, unspecified Comment/Plan: Continue aggressive IV hydration. Avoid any nephrotoxins monitor. renal function with daily BMP , overall improving each day. (2) Anemia Acute D64.9 - ANEMIA, UNSPECIFIED Qualifiers: Anemia type: iron deficiency Iron deficiency anemia type: chronic blood loss Qualified Code(s): D50.0 - Iron deficiency anemia secondary to blood loss (chronic) Comment/Plan: Status post 2 units of PRBC yesterday. The hemoglobin from 7 went up to 10. (3) Hyperbilirubinemia Resolved E80.6 - OTHER DISORDERS OF BILIRUBIN METABOLISM Comment/Plan: MRCP without any evidence of bile duct stenosis or obstruction. She is currently with improved symptoms. Although she is not the best historian. Continue present care with hydration, she is tolerating a diet so will advance today. (4) Abnormal EKG Acute R94.31 - ABNORMAL ELECTROCARDIOGRAM [ECG] [EKG] Comment/Plan: Needs magnesiium and potassium replacement, but so far no significant arrhythmias. She has denied any chest pain. Hx of aortic valve replacement (apparently with bioprosthetic valve- because she is not anticoagulated). Also has history of coronary artery disease. (5) Dehydration Resolved E86.0 - DEHYDRATION Comment/Plan: Continue IV fluids monitor hemodynamics.. (6) Toxic metabolic encephalopathy Resolved G92 - TOXIC ENCEPHALOPATHY Comment/Plan: Continue supportive care , avoid excessive sedation and anticholinergics.. (7) Schizophrenia, paranoid Acute F20.0 - PARANOID SCHIZOPHRENIA Comment/Plan: Resume Seroquel (8) Nausea & vomiting Resolved R11.2 - NAUSEA WITH VOMITING, UNSPECIFIED Qualifiers: Vomiting type: unspecified Vomiting Intractability: non-intractable Qualified Code(s): R11.2 - Nausea with vomiting, unspecified Comment/Plan: Use antiemetics as needed to control symptoms.
--- NOTE | 2016-05-16 12:18 | PCM.GIPROG ---
Progress Note (GI) Chief Complaint: Patient was initially scheduled for EGD this morning. It had to be canceled since patient was on 45% non-rebreather mask and saturating 92-93%. Patient currently sleeping. Son is at the bedside. She denies having any nausea vomiting or any abdominal pain. She denies having any significant diarrhea. However, according to the nursing notes she did have diarrhea and had some blood in the stool. I have instructed them to send stool for C diff as well. Endoscopy would be held for now until her breathing status becomes better. It certainly can be performed with anesthesia likely on Wednesday - Physical Exam Vital Signs: Temperature: 98.7 F (05/16/16 08:54) HR: 83 (05/16/16 08:54) RR: 20 (05/16/16 08:54) BP: 135/71 (05/16/16 08:54) Pulse Ox: 93 (05/16/16 08:54) General: Alert HEENT: Pallor Respiratory: Diminished Gastrointestinal: Soft, Bowel Sounds (Present). negative: Distended, Tender, Guarding, Firm, Hepatosplenomegaly Result Diagrams: 05/16/16 08:45 05/16/16 08:45 - Impression and Plan (1) Nausea & vomiting Resolved R11.2 - NAUSEA WITH VOMITING, UNSPECIFIED Present on Admission: Yes unspecified non-intractable R11.2 - Nausea with vomiting, unspecified Comment: Use antiemetics as needed to control symptoms. 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 The hemoglobin from 7 went up to 10. (3) Acute renal failure (ARF) Acute N17.9 - ACUTE KIDNEY FAILURE, UNSPECIFIED Present on Admission: Yes unspecified N17.9 - Acute kidney failure, unspecified Comment: Continue aggressive IV hydration. Avoid any nephrotoxins monitor. renal function with daily BMP , overall improving each day. (4) COPD (chronic obstructive pulmonary disease) Acute J44.9 - CHRONIC OBSTRUCTIVE PULMONARY DISEASE, UNSPECIFIED unspecified Comment: Monitor pulmonary status, continue DuoNeb t.i.d. acutely hours prn (5) GERD (gastroesophageal reflux disease) Acute K21.9 - GASTRO-ESOPHAGEAL REFLUX DISEASE WITHOUT ESOPHAGITIS without esophagitis K21.9 - Gastro-esophageal reflux disease without esophagitis Comment: Continue PPI (6) Schizophrenia, paranoid Acute F20.0 - PARANOID SCHIZOPHRENIA Present on Admission: Yes Comment: Resume Seroquel (7) Toxic metabolic encephalopathy Resolved G92 - TOXIC ENCEPHALOPATHY Present on Admission: Yes Comment: Continue supportive care ,avoid excessive sedation and anticholinergics.. (8) Hyperbilirubinemia Resolved E80.6 - OTHER DISORDERS OF BILIRUBIN METABOLISM Present on Admission: Yes Comment: MRCP without any evidence of bile duct stenosis or obstruction. She is currently with improved symptoms. Although she is not the best historian. Continue present care with hydration, she is tolerating a diet so will advance today. Plan: 1. would continue to monitor hemoglobin/hematocrit and transfuse if need be. 2. Continue Protonix 3. EGD likely on Wednesday with anesthesia support. 4. Check stool for C diff 5. Please report if there is any active bleeding.
[2016-05-16] MEDS: LORAZEPAM 2 MG/ML VIAL IV PRN ×2 (15:36→22:12)
[2016-05-16] MEDS: PANTOPRAZOLE 40 MG VIAL IV SCH (18:25)
[2016-05-16] MEDS ORDERED: POTASSIUM CHLORIDE 20 MEQ TAB PO ONE (21:00)
[2016-05-16] MEDS ORDERED: Magnesium Sulfate 2 gm/D5W 2 GM/50 ML RTU IV ONE (21:00)
[2016-05-17] MEDS: LORAZEPAM 2 MG/ML VIAL IV PRN ×2 (04:04→12:32)
[2016-05-17] MEDS: SODIUM CHLORIDE 0.9% 3 ML FLUSH FLUSH SCH ×2 (05:36→14:10)
[2016-05-17] MEDS: PANTOPRAZOLE 40 MG VIAL IV SCH ×2 (05:37→17:28)
[2016-05-17] MEDS: Albuterol/Ipratropium Neb 3 ML NEB NEB SCH ×3 (08:42→23:36)
[2016-05-17 08:55] LABS: MPV 9.4 fL (7.4-10.4)
[2016-05-17 09:02] LABS: BLOOD UREA NITROGEN 38 MG/DL (7-17); CALCIUM 8.2 MG/DL (8.4-10.2); CALCULATED OSMOLALITY 283 MOs/Kg (270-290); CHLORIDE 110 mEq/L (98-107); GLUCOSE 78 MG/DL (70-99); SODIUM LEVEL 143 mEq/L (137-146)
[2016-05-17] MEDS: NICOTINE 21 MG PATCH TOP SCH (09:18)
[2016-05-17] MEDS: POTASSIUM CHLORIDE 20 MEQ TAB PO SCH ×2 (09:34→17:28)
[2016-05-17] MEDS: QUETIAPINE FUMARATE 25 MG TAB PO SCH ×3 (09:34→22:44)
[2016-05-17] MEDS: METOPROLOL (TOPROL-XL) 25 MG TAB PO SCH ×2 (09:34→14:08)
[2016-05-17] MEDS: AMLODIPINE 10 MG TAB PO SCH ×2 (09:34→14:08)
[2016-05-17] MEDS: OXYCODONE HCL 5 MG TABLET PO PRN ×2 (12:32→23:07)
--- NOTE | 2016-05-17 12:44 | PCM.GIPROG ---
Progress Note (GI) Chief Complaint: Events from yesterday noted. Patient was sleeping. No reported abdominal pain. She is continues to be on non-rebreather will mask but doing some better No nausea or vomiting reported. Had some blood in the stool. C diff was negative - Physical Exam Vital Signs: Temperature: 98.7 F (05/17/16 08:59) HR: 85 (05/17/16 08:59) RR: 18 (05/17/16 08:59) BP: 114/68 (05/17/16 08:59) Pulse Ox: 92 (05/17/16 08:59) General: Alert, Oriented x3, Cooperative, No acute distress HEENT: Normal, Pallor, Other (No Jaundice) Cardiovascular: Normal S1, Normal S2, Other (No S3 or S4.). negative: No murmurs Gastrointestinal: Soft, Bowel Sounds (Normal), Other (No ascites.). negative: Tender, Hepatosplenomegaly Extremities: Normal pulses. negative: Swelling, Edema Skin: Warm,Dry and Intact Neurological: Normal speech, Other (No focal neurologic deficits.) Psych/Mental Status: Normal Affect, Cooperative Result Diagrams: 05/17/16 07:58 05/17/16 07:58 - Impression and Plan (1) Nausea & vomiting Resolved R11.2 - NAUSEA WITH VOMITING, UNSPECIFIED Present on Admission: Yes unspecified non-intractable R11.2 - Nausea with vomiting, unspecified Comment: Use antiemetics as needed to control symptoms. 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 The hemoglobin from 7 went up to 10. (3) Acute renal failure (ARF) Acute N17.9 - ACUTE KIDNEY FAILURE, UNSPECIFIED Present on Admission: Yes unspecified N17.9 - Acute kidney failure, unspecified Comment: Continue aggressive IV hydration. Avoid any nephrotoxins monitor. renal function with daily BMP , overall improving each day. (4) COPD (chronic obstructive pulmonary disease) Acute J44.9 - CHRONIC OBSTRUCTIVE PULMONARY DISEASE, UNSPECIFIED unspecified Comment: Monitor pulmonary status, continue DuoNeb t.i.d. acutely hours prn (5) GERD (gastroesophageal reflux disease) Acute K21.9 - GASTRO-ESOPHAGEAL REFLUX DISEASE WITHOUT ESOPHAGITIS without esophagitis K21.9 - Gastro-esophageal reflux disease without esophagitis Comment: Continue PPI (6) Schizophrenia, paranoid Acute F20.0 - PARANOID SCHIZOPHRENIA Present on Admission: Yes Comment: Resume Seroquel (7) Toxic metabolic encephalopathy Resolved G92 - TOXIC ENCEPHALOPATHY Present on Admission: Yes Comment: Continue supportive care ,avoid excessive sedation and anticholinergics.. (8) Hyperbilirubinemia Resolved E80.6 - OTHER DISORDERS OF BILIRUBIN METABOLISM Present on Admission: Yes Comment: MRCP without any evidence of bile duct stenosis or obstruction. She is currently with improved symptoms. Although she is not the best historian. Continue present care with hydration, she is tolerating a diet so will advance today. Plan: 1. proceed with EGD in a.m. with anesthesia support 2. Continue to monitor hemoglobin hematocrit and transfuse if needed 3. Thereafter we will decide regarding colonoscopy. 4. Continue to monitor BUN/creatinine 5. Please call if with any problems
--- NOTE | 2016-05-17 19:54 | GENMEDPROG ---
Currently: Reports: Cough, Tobacco Use/Hx, Reflux Sx DVT Prophylaxis: Yes - Physical Examination Vital Signs and I&O: Last Vital Signs Temp 98.8 F 05/17/16 16:41 Pulse 95 05/17/16 16:41 Resp 18 05/17/16 16:41 BP 126/74 05/17/16 16:41 Pulse Ox 90 L 05/17/16 16:41 Oxygen Pulse Oxygen Saturation 90 O2 Device Venturi Mask Oxygen Flow Rate 5 Fraction of Inspired Oxygen ( 45 FIO2) Intake & Output 05/14/16 05/15/16 05/16/16 05/17/16 23:59 23:59 23:59 23:59 Intake Total 227 3144 1712 603 Output Total 982 911 7969 925 Balance 1119 0007 -754 -875 Patient's weight 63.548 kg 64.093 kg 67.358 kg General: Alert, Oriented x3, Cooperative, No acute distress HEENT: PERRLA, EOMI, Anicteric Sclera. negative: Mucous membr. moist/pink Extremities/Musculoskeletal: Normal pulses. negative: Swelling, Edema Skin: Warm,Dry and Intact, Other (dry, oarse) Psych/Mental Status: Agitated, Confused, Disoriented, Drowsy Lab/DI/Studies Reviewed: Laboratory Tests 05/16/16 05/16/16 05/17/16 01:55 20:05 07:58 WBC Hgb Hct RDW Plt Count Sodium 143 Potassium 5.0 D Chloride 110 H Carbon Dioxide 22 Anion Gap 16 BUN 38 H Creatinine 1.30 H Estimated GFR (MDRD) 42 L Glucose 78 Calculated Osmolality 283 Calcium 8.2 L TSH 30.40 H Stool Occult Blood Pos H 05/17/16 07:58 WBC 3.0 L Hgb 10.2 L Hct 31.4 L RDW 16.0 H Plt Count 204 Sodium Potassium Chloride Carbon Dioxide Anion Gap BUN Creatinine Estimated GFR (MDRD) Glucose Calculated Osmolality Calcium TSH Stool Occult Blood - Assessment (1) Acute renal failure (ARF) Acute N17.9 - ACUTE KIDNEY FAILURE, UNSPECIFIED Qualifiers: Acute renal failure type: unspecified Qualified Code(s): N17.9 - Acute kidney failure, unspecified Comment/Plan: Continue aggressive IV hydration. Avoid any nephrotoxins monitor. renal function with daily BMP , overall improving each day. (2) Anemia Acute D64.9 - ANEMIA, UNSPECIFIED Qualifiers: Anemia type: iron deficiency Iron deficiency anemia type: chronic blood loss Qualified Code(s): D50.0 - Iron deficiency anemia secondary to blood loss (chronic) Comment/Plan: Status post 2 units of PRBC yesterday. The hemoglobin from 7 went up to 10. (3) Hypothyroidism Acute E03.9 - HYPOTHYROIDISM, UNSPECIFIED Qualifiers: Hypothyroidism type: acquired Qualified Code(s): E03.9 - Hypothyroidism, unspecified Comment/Plan: Patient's medications were not confirmed. She is supposed to be on Synthroid, but the dose is uncertain. We will resume at 50 mcg daily. (4) Hyperbilirubinemia Resolved E80.6 - OTHER DISORDERS OF BILIRUBIN METABOLISM Comment/Plan: MRCP without any evidence of bile duct stenosis or obstruction. She is currently with improved symptoms. Although she is not the best historian. Continue present care with hydration, she is tolerating a diet so will advance today. (5) Abnormal EKG Acute R94.31 - ABNORMAL ELECTROCARDIOGRAM [ECG] [EKG] Comment/Plan: Needs magnesium and potassium replacement, but so far no significant arrhythmias. She has denied any chest pain. Hx of aortic valve replacement (apparently with bioprosthetic valve- because she is not anticoagulated). Also has history of coronary artery disease. (6) Dehydration Resolved E86.0 - DEHYDRATION Comment/Plan: Continue IV fluids monitor hemodynamics.. (7) Toxic metabolic encephalopathy Resolved G92 - TOXIC ENCEPHALOPATHY Comment/Plan: Continue supportive care , avoid excessive sedation and anticholinergics.. (8) Schizophrenia, paranoid Acute F20.0 - PARANOID SCHIZOPHRENIA Comment/Plan: Resume Seroquel (9) Nausea & vomiting Resolved R11.2 - NAUSEA WITH VOMITING, UNSPECIFIED Qualifiers: Vomiting type: unspecified Vomiting Intractability: non-intractable Qualified Code(s): R11.2 - Nausea with vomiting, unspecified Comment/Plan: Use antiemetics as needed to control symptoms.
[2016-05-17] MEDS: LEVOTHYROXINE 50 MCG (0.05 MG) TAB PO SCH (22:44)
[2016-05-18] MEDS: SODIUM CHLORIDE 0.9% 3 ML FLUSH FLUSH SCH ×2 (06:00→16:39)
[2016-05-18] MEDS: PANTOPRAZOLE 40 MG VIAL IV SCH ×2 (06:01→16:39)
[2016-05-18] MEDS: LEVOTHYROXINE 50 MCG (0.05 MG) TAB PO SCH (06:01)
[2016-05-18 07:26] LABS: MPV 9.2 fL (7.4-10.4)
[2016-05-18 08:04] LABS: BLOOD UREA NITROGEN 33 MG/DL (7-17); CALCIUM 8.1 MG/DL (8.4-10.2); CALCULATED OSMOLALITY 278 MOs/Kg (270-290); CHLORIDE 107 mEq/L (98-107); GLUCOSE 99 MG/DL (70-99); SODIUM LEVEL 141 mEq/L (137-146)
[2016-05-18] MEDS: Albuterol/Ipratropium Neb 3 ML NEB NEB SCH ×3 (08:16→23:15)
[2016-05-18] MEDS: NICOTINE 21 MG PATCH TOP SCH (08:29)
[2016-05-18] MEDS: POTASSIUM CHLORIDE 20 MEQ TAB PO SCH ×2 (08:31→16:39)
[2016-05-18] MEDS: METOPROLOL (TOPROL-XL) 25 MG TAB PO SCH (08:31)
[2016-05-18] MEDS: QUETIAPINE FUMARATE 25 MG TAB PO SCH ×2 (08:32→21:43)
[2016-05-18] MEDS: AMLODIPINE 10 MG TAB PO SCH (08:32)
--- NOTE | 2016-05-18 13:49 | GENMEDPROG ---
Currently: Reports: Cough, Tobacco Use/Hx, Reflux Sx DVT Prophylaxis: Yes - Physical Examination Vital Signs and I&O: Last Vital Signs Temp 97.8 F 05/18/16 13:40 Pulse 92 05/18/16 13:40 Resp 20 05/18/16 13:40 BP 118/65 05/18/16 13:40 Pulse Ox 89 L 05/18/16 13:40 Oxygen Pulse Oxygen Saturation 89 O2 Device Nasal Cannula Oxygen Flow Rate 4 Fraction of Inspired Oxygen ( 45 FIO2) Intake & Output 05/15/16 05/16/16 05/17/16 05/18/16 23:59 23:59 23:59 23:59 Intake Total 3144 1712 849 110 Output Total 725 1620 1100 475 Balance 5694 -848 -251 -678 Patient's weight 64.093 kg 67.358 kg 66.253 kg General: Alert, Oriented x3, Cooperative, No acute distress HEENT: PERRLA, EOMI, Anicteric Sclera. negative: Mucous membr. moist/pink Extremities/Musculoskeletal: Normal pulses. negative: Swelling, Edema Skin: Warm,Dry and Intact, Other (dry, oarse) Psych/Mental Status: Agitated, Confused, Disoriented, Drowsy - Assessment (1) Acute renal failure (ARF) Acute N17.9 - ACUTE KIDNEY FAILURE, UNSPECIFIED Qualifiers: Acute renal failure type: unspecified Qualified Code(s): N17.9 - Acute kidney failure, unspecified Comment/Plan: Continue aggressive IV hydration. Avoid any nephrotoxins monitor. renal function with daily BMP , overall improving each day. (2) Anemia Acute D64.9 - ANEMIA, UNSPECIFIED Qualifiers: Anemia type: iron deficiency Iron deficiency anemia type: chronic blood loss Qualified Code(s): D50.0 - Iron deficiency anemia secondary to blood loss (chronic) Comment/Plan: Status post 2 units of PRBC yesterday. The hemoglobin from 7 went up to 10. (3) Hypothyroidism Acute E03.9 - HYPOTHYROIDISM, UNSPECIFIED Qualifiers: Hypothyroidism type: acquired Qualified Code(s): E03.9 - Hypothyroidism, unspecified Comment/Plan: Patient's medications were not confirmed. She is supposed to be on Synthroid, but the dose is uncertain. We will resume at 50 mcg daily. (4) Hyperbilirubinemia Resolved E80.6 - OTHER DISORDERS OF BILIRUBIN METABOLISM Comment/Plan: MRCP without any evidence of bile duct stenosis or obstruction. She is currently with improved symptoms. Although she is not the best historian. Continue present care with hydration, she is tolerating a diet so will advance today. (5) Abnormal EKG Acute R94.31 - ABNORMAL ELECTROCARDIOGRAM [ECG] [EKG] Comment/Plan: Needs magnesium and potassium replacement, but so far no significant arrhythmias. She has denied any chest pain. Hx of aortic valve replacement (apparently with bioprosthetic valve- because she is not anticoagulated). Also has history of coronary artery disease. (6) Dehydration Resolved E86.0 - DEHYDRATION Comment/Plan: Continue IV fluids monitor hemodynamics.. (7) Toxic metabolic encephalopathy Resolved G92 - TOXIC ENCEPHALOPATHY Comment/Plan: Continue supportive care , avoid excessive sedation and anticholinergics.. (8) Schizophrenia, paranoid Acute F20.0 - PARANOID SCHIZOPHRENIA Comment/Plan: Resume Seroquel (9) Nausea & vomiting Resolved R11.2 - NAUSEA WITH VOMITING, UNSPECIFIED Qualifiers: Vomiting type: unspecified Vomiting Intractability: non-intractable Qualified Code(s): R11.2 - Nausea with vomiting, unspecified Comment/Plan: Use antiemetics as needed to control symptoms.
[2016-05-18] MEDS ORDERED: HYDROmorphone 1 MG INJECTION IV PRN ×2 (14:14)
[2016-05-18] MEDS ORDERED: MEPERIDINE 25 MG/ML TUBEX IV PRN (14:14)
[2016-05-18] MEDS ORDERED: hydrALAZINE 20 MG/ML VIAL IV PRN (14:14)
[2016-05-18] MEDS ORDERED: ONDANSETRON HCL 4 MG/2 ML VIAL IV PRN (14:14)
[2016-05-18] MEDS ORDERED: LABETALOL 20 MG/4 ML SYRINGE IV PRN (14:14)
[2016-05-18] MEDS ORDERED: ONDANSETRON HCL 4 MG ODT TAB PO PRN (14:14)
[2016-05-18] MEDS ORDERED: FENTANYL 100 MCG/2 ML VIAL IV PRN ×2 (14:14)
--- NOTE | 2016-05-18 15:19 | HIMOPRPT ---
DATE OF PROCEDURE: 05/18/16 PROCEDURE: EGD with biopsies INDICATIONS: GI bleeding, patient had decreased hemoglobin to 7 status post 2 units of PRBC. Reported melanotic stools CONSENT: The benefits, risks, and alternatives to the procedure were discussed. The risks of bleeding, perforation and aspiration were discussed at less than 1% . Informed consent was obtained from the patient. MEDICATIONS: Per Anesthesia. DESCRIPTION OF PROCEDURE: The patient was placed in the left lateral position. The Olympus video endoscope GIFH-180 was passed with ease under direct visualization to the second portion of the duodenum. The esophagus, stomach, and duodenum were examined on insertion and withdrawal of the scope. At least two passes were made. FINDINGS: ESOPHAGUS: The esophagus was normal. There were no esophageal ulcers, masses or varices visualized. The Z-line was well defined at 35 cm. The lower end of the esophagus was examined by narrow band imaging as well. STOMACH: A small hiatal hernia was noted. A gastric ulcer was noted measuring 1 cm into 1 cm in the antrum with clean whitish base and erythematous margins. Photo documentation obtained. There was also duodenal prolapse into the antrum with moderate localized gastritis. Multiple biopsies were obtained and sent for histopathologic examination. We also obtain 2 biopsies from the antrum and sent for LAKISHA testing. The ulcer was intentionally not biopsied. DUODENUM: Easily intubated and was normal except for prolapse. Photodocumentation was obtained. IMPRESSION: 1. Gastric ulcer (likely etiology of upper GI bleeding-no active bleeding currently) 2. Small hiatal hernia. 3. Duodenal prolapse into the antrum with surrounding gastritis (biopsied) PLAN: 1. Follow biopsies and LAKISHA-test. Will treat if positive. 2. Continue Protonix for now 3. Continue to monitor hemoglobin/hematocrit and transfuse if need be. 4. Follow up in GI clinic if still with problems. 5. Patient is not a candidate for colonoscopy due to very frail pulmonary status. The anesthesia does agree with that. If her pulmonary status improves , then can consider colonoscopy as an outpatient. Certainly, this would be a very high-risk procedure. 6. Avoid nonsteroidals
--- NOTE | 2016-05-18 15:57 | SC.ANESPOS ---
Post-Anesthesia Note LOC: Fully Awake Post-Anesthesia Assessment: Awake, Returned to Baseline, Hemodynamically Stable , Pain Control Adequate Phase I & II Recovery Complete: Yes Apparent Anesthesia Complication: No : N - Vital Signs Blood Pressure: 132/78 Pulse: 101 Resp Rate: 24 O2 Sat: 91 Temp: 98.5 F
[2016-05-18] MEDS: OXYCODONE HCL 5 MG TABLET PO PRN (21:43)
[2016-05-19] MEDS: SODIUM CHLORIDE 0.9% 3 ML FLUSH FLUSH SCH ×2 (04:09→17:20)
[2016-05-19] MEDS: PANTOPRAZOLE 40 MG VIAL IV SCH ×2 (04:12→17:20)
[2016-05-19] MEDS: LEVOTHYROXINE 50 MCG (0.05 MG) TAB PO SCH (04:12)
[2016-05-19] MEDS: OXYCODONE HCL 5 MG TABLET PO PRN ×2 (04:12→07:54)
[2016-05-19 07:09] LABS: MPV 9.3 fL (7.4-10.4)
[2016-05-19 07:31] LABS: BLOOD UREA NITROGEN 28 MG/DL (7-17); CALCIUM 8.1 MG/DL (8.4-10.2); CALCULATED OSMOLALITY 275 MOs/Kg (270-290); CHLORIDE 107 mEq/L (98-107); GLUCOSE 92 MG/DL (70-99); SODIUM LEVEL 140 mEq/L (137-146)
[2016-05-19] MEDS: QUETIAPINE FUMARATE 25 MG TAB PO SCH ×2 (07:55→20:13)
[2016-05-19] MEDS: AMLODIPINE 10 MG TAB PO SCH (07:55)
[2016-05-19] MEDS: NICOTINE 21 MG PATCH TOP SCH (07:55)
[2016-05-19] MEDS: Albuterol/Ipratropium Neb 3 ML NEB NEB SCH ×3 (08:08→23:01)
[2016-05-19] MEDS: METOPROLOL (TOPROL-XL) 25 MG TAB PO SCH (08:26)
[2016-05-19] MEDS: POTASSIUM CHLORIDE 20 MEQ TAB PO SCH ×2 (08:40→17:20)
--- NOTE | 2016-05-19 12:20 | GENMEDPROG ---
Currently: Reports: Cough, Tobacco Use/Hx, Reflux Sx DVT Prophylaxis: Yes - Physical Examination Vital Signs and I&O: Last Vital Signs Temp 98.1 F 05/19/16 10:00 Pulse 88 05/19/16 10:00 Resp 18 05/19/16 10:00 BP 114/61 05/19/16 10:00 Pulse Ox 92 05/19/16 10:00 Oxygen Pulse Oxygen Saturation 92 O2 Device Nasal Cannula Oxygen Flow Rate 5 Fraction of Inspired Oxygen ( 45 FIO2) Intake & Output 05/16/16 05/17/16 05/18/16 05/19/16 23:59 23:59 23:59 23:59 Intake Total 1712 849 420 356 Output Total 2350 1100 900 550 Balance -638 -251 -480 -194 Patient's weight 67.358 kg 66.253 kg 66.366 kg General: Alert, Oriented x3, Cooperative, No acute distress HEENT: PERRLA, EOMI, Anicteric Sclera. negative: Mucous membr. moist/pink Neck: Non-tender, Full range of motion, Normal Trachea alignment, Normal inspection, No Masses palpable Lymphatics: Normal Respiratory: Accessory Muscle Use, Rales, Tachypnea Cardiovascular: Regular rate, Regular rate and rhythm, Normal S1, Normal S2 GI: Normal bowel sounds, Soft, Non tender, No masses Extremities/Musculoskeletal: Normal pulses, DJD, FROM. negative: Swelling, Edema Skin: Warm,Dry and Intact, No breakdown, Other (dry, oarse) Neurological: Normal speech, Strength at 5/5 X4 ext, Normal tone, Cranial nerves 3-12 NL, Drowsy Psych/Mental Status: Agitated, Confused, Disoriented, Drowsy Lab/DI/Studies Reviewed: Laboratory Tests 05/19/16 05/19/16 05:55 05:55 WBC 2.8 L Hgb 9.5 L Hct 29.0 L Plt Count 324 Sodium 140 Potassium 4.9 Chloride 107 Carbon Dioxide 26 Anion Gap 12 BUN 28 H Creatinine 1.40 H Estimated GFR (MDRD) 38 L Glucose 92 Calculated Osmolality 275 Calcium 8.1 L - Assessment (1) Acute renal failure (ARF) Acute N17.9 - ACUTE KIDNEY FAILURE, UNSPECIFIED Qualifiers: Acute renal failure type: unspecified Qualified Code(s): N17.9 - Acute kidney failure, unspecified Comment/Plan: Continue aggressive IV hydration. Avoid any nephrotoxins monitor. renal function with daily BMP , overall improving each day. (2) Anemia Acute D64.9 - ANEMIA, UNSPECIFIED Qualifiers: Anemia type: iron deficiency Iron deficiency anemia type: chronic blood loss Qualified Code(s): D50.0 - Iron deficiency anemia secondary to blood loss (chronic) Comment/Plan: Status post 2 units of PRBC 4 days ago. The hemoglobin from 7 went up to 10, remains stable. Anticipate discharge in AM. (3) Hypothyroidism Acute E03.9 - HYPOTHYROIDISM, UNSPECIFIED Qualifiers: Hypothyroidism type: acquired Qualified Code(s): E03.9 - Hypothyroidism, unspecified Comment/Plan: Patient's medications were not confirmed. She is supposed to be on Synthroid, but the dose is uncertain. We will resume at 50 mcg daily. (4) Hyperbilirubinemia Resolved E80.6 - OTHER DISORDERS OF BILIRUBIN METABOLISM Comment/Plan: MRCP without any evidence of bile duct stenosis or obstruction. She is currently with improved symptoms. Although she is not the best historian. Continue present care with hydration, she is tolerating a diet so will advance today. (5) Abnormal EKG Acute R94.31 - ABNORMAL ELECTROCARDIOGRAM [ECG] [EKG] Comment/Plan: Needs magnesium and potassium replacement, but so far no significant arrhythmias. She has denied any chest pain. Hx of aortic valve replacement (apparently with bioprosthetic valve- because she is not anticoagulated). Also has history of coronary artery disease. (6) Dehydration Resolved E86.0 - DEHYDRATION Comment/Plan: Continue IV fluids monitor hemodynamics.. (7) Toxic metabolic encephalopathy Resolved G92 - TOXIC ENCEPHALOPATHY Comment/Plan: Continue supportive care , avoid excessive sedation and anticholinergics.. (8) Schizophrenia, paranoid Acute F20.0 - PARANOID SCHIZOPHRENIA Comment/Plan: Resume Seroquel (9) Nausea & vomiting Resolved R11.2 - NAUSEA WITH VOMITING, UNSPECIFIED Qualifiers: Vomiting type: unspecified Vomiting Intractability: non-intractable Qualified Code(s): R11.2 - Nausea with vomiting, unspecified Comment/Plan: Use antiemetics as needed to control symptoms. - Plan Anticipate discharge in AM. Case Care Discussed with: Patient, Family, Nursing Staff, Resource Management Education/Counseling Given To: Patient, Family Member Education/Counseling Given Regarding: Diagnosis, Treatment, Prognosis Total Time: 45 min Critical Care: No Couseling Time (>50% in counseling/coordination): Yes Code: 63916 (12+)
[2016-05-20 05:17] VITALS: TEMP 98.1
[2016-05-20] MEDS: LEVOTHYROXINE 50 MCG (0.05 MG) TAB PO SCH (05:22)
[2016-05-20] MEDS: PANTOPRAZOLE 40 MG VIAL IV SCH (05:22)
[2016-05-20] MEDS: SODIUM CHLORIDE 0.9% 3 ML FLUSH FLUSH SCH (05:23)
[2016-05-20 07:12] LABS: MPV 8.7 fL (7.4-10.4)
[2016-05-20 07:36] LABS: BLOOD UREA NITROGEN 23 MG/DL (7-17); CALCIUM 8.2 MG/DL (8.4-10.2); CALCULATED OSMOLALITY 269 MOs/Kg (270-290); CHLORIDE 106 mEq/L (98-107); GLUCOSE 80 MG/DL (70-99); SODIUM LEVEL 138 mEq/L (137-146)
[2016-05-20] MEDS: POTASSIUM CHLORIDE 20 MEQ TAB PO SCH (08:52)
[2016-05-20] MEDS: NICOTINE 21 MG PATCH TOP SCH (08:52)
[2016-05-20] MEDS: METOPROLOL (TOPROL-XL) 25 MG TAB PO SCH (08:53)
[2016-05-20] MEDS: AMLODIPINE 10 MG TAB PO SCH (08:53)
[2016-05-20] MEDS: QUETIAPINE FUMARATE 25 MG TAB PO SCH (08:53)
[2016-05-20] MEDS: Albuterol/Ipratropium Neb 3 ML NEB NEB SCH ×2 (09:06→16:12)
[2016-05-20 09:31] VITALS: BP 106/58
--- NOTE | 2016-05-20 10:57 | PCM.DCS92 ---
- Final/Secondary Discharge Diagnosis (1) Anemia Acute D64.9 - ANEMIA, UNSPECIFIED Present on Admission: Yes iron deficiency chronic blood loss V F B H O D50.0 - Iron deficiency anemia secondary to blood loss (chronic) Comment: Due to gastric ulcer. Hemoglobin stable. She is adamant that she be discharged home. She states that she feels well. Is refusing physical therapy and other treatments. Hemoglobin is stable and ulcer was not actively bleeding at the time of endoscopy. (2) Gastric ulcer Acute K25.9 - GASTRIC ULCER, UNSP ACUTE OR CHRONIC, W/O HEMOR OR PERF Present on Admission: Yes acute with hemorrhage K25.0 - Acute gastric ulcer with hemorrhage Comment: Likely source of bleeding. Not currently bleeding on endoscopy. Hemoglobin stable (3) Acute renal failure (ARF) Resolved N17.9 - ACUTE KIDNEY FAILURE, UNSPECIFIED Present on Admission: Yes unspecified N17.9 - Acute kidney failure, unspecified Comment: Resolved. Creatinine initially 4.3. Now 1.4. (4) COPD (chronic obstructive pulmonary disease) Acute J44.9 - CHRONIC OBSTRUCTIVE PULMONARY DISEASE, UNSPECIFIED Present on Admission: Yes chronic bronchitis unspecified E J42 - Unspecified chronic bronchitis Comment: Consistently hypoxic though remains asymptomatic. Likely will need home oxygen. (5) GERD (gastroesophageal reflux disease) Acute K21.9 - GASTRO-ESOPHAGEAL REFLUX DISEASE WITHOUT ESOPHAGITIS Present on Admission: Yes without esophagitis K21.9 - Gastro-esophageal reflux disease without esophagitis Comment: Continue PPI (6) Hypothyroidism Acute E03.9 - HYPOTHYROIDISM, UNSPECIFIED Present on Admission: Yes acquired E03.9 - Hypothyroidism, unspecified Comment: Continue Synthroid. (7) Schizophrenia, paranoid Acute F20.0 - PARANOID SCHIZOPHRENIA Present on Admission: Yes Comment: Resume Seroquel (8) Hyperbilirubinemia Resolved E80.6 - OTHER DISORDERS OF BILIRUBIN METABOLISM Present on Admission: Yes Comment: MRCP without any evidence of bile duct stenosis or obstruction. Bilirubin now normal. (9) Nausea & vomiting Resolved R11.2 - NAUSEA WITH VOMITING, UNSPECIFIED Present on Admission: Yes unspecified non-intractable R11.2 - Nausea with vomiting, unspecified Comment: Use antiemetics as needed to control symptoms. Discharge Disposition: Discharge w/ Home Health Discharge Condition: Improved Cognitive Discharge Status: Cognitive deficits prevent decision making for safety. Fuctional Discharge Status: Walker Assistance Physician Follow up/Referrals: None,No Provider [Primary Care Provider] - One Week Home Medications / New Prescriptions: Continue Omeprazole 20 mg PO DAILY Metoprolol Succinate (XL) [Toprol Xl] 12.5 mg PO DAILY Levothyroxine Sodium 25 mcg PO DAILY Furosemide [Lasix] 20 mg PO DAILY PRN PRN Reason: Edema Amlodipine [Norvasc] 10 mg PO DAILY Lisinopril [Prinivil] 10 mg PO DAILY Quetiapine Fumarate [Seroquel] 50 mg PO BID #60 tab Pantoprazole Sodium [Protonix] 40 mg PO DAILY #30 tab Discontinued Ciprofloxacin HCl [Cipro] 500 mg PO BID #20 tab Amoxicillin Trihydrate [Amoxicillin] 500 mg PO TID #30 tab Discharge Home Medication List Amlodipine [Norvasc] 10 mg PO DAILY 03/07/16 [History Confirmed 03/07/16 Last Taken 03/07/16] Furosemide [Lasix] 20 mg PO DAILY PRN 03/07/16 [History Confirmed 03/07/16 Last Taken 03/07/16] Levothyroxine Sodium 25 mcg PO DAILY 03/07/16 [History Confirmed 03/07/16 Last Taken 03/07/16] Lisinopril [Prinivil] 10 mg PO DAILY 03/07/16 [History Confirmed 03/07/16 Last Taken 03/07/16] Metoprolol Succinate (XL) [Toprol Xl] 12.5 mg PO DAILY 03/07/16 [History Confirmed 03/07/16 Last Taken 03/07/16] Omeprazole 20 mg PO DAILY 03/07/16 [History Confirmed 03/07/16 Last Taken ] Pantoprazole Sodium [Protonix] 40 mg PO DAILY #30 tab 03/07/16 [Rx Last Taken Unknown] Quetiapine Fumarate [Seroquel] 50 mg PO BID #60 tab 03/07/16 [Rx Last Taken Unknown] O2 Device: Nasal Cannula Diet at Discharge: As Tolerated, Low Fat, Forman, Other (Low acidic foods) Activity: As Tolerated Call Office For: Worsening Symptoms - DC Summary Notes Hospital Course Note:: Discharge summary on patient named GILLIAN PATTERSON admitted to [facility] on 05/08/16 by Brigette Farley MD. Date of discharge is []. Total Time: 45 minutes - Physical Exam Vital Signs: Last Vital Signs Temp 98.1 F 05/20/16 09:30 Pulse 98 05/20/16 09:30 Resp 19 05/20/16 09:30 BP 106/58 L 05/20/16 09:30 Pulse Ox 93 05/20/16 09:30 Oxygen Pulse Oxygen Saturation 93 O2 Device Nasal Cannula Oxygen Flow Rate 5 Fraction of Inspired Oxygen ( 45 FIO2) Constitutional: Alert, Agitated Oriented to: Person, Place - HEENT Head: Normal Eye: Conjunctival Injection (PERRL: EOMI), Scleral Icterus Oropharynx: Membranes Dry Tympanic Membrane: Normal Nose: No Symptoms Reported. negative: Bleeding, Congestion, Discharge - Respiratory/Cardiovascular Respiratory: Accessory Muscle Use Cardiovascular: Normal - GI Auscultation: Normal Palpation: Normal (soft, nondistended, no mass, liver down 2 cm from Right costal margin in mid-clavicular line). negative: Fluid Wave, Mass Tenderness: Non tender. negative: Guarding, Rebound Vincent's Sign: Negative Rectal Exam: Normal, Heme negative stool, Rectal Tone (normal) Stool: Brown - Musculoskeletal Back: Normal Extremities: Normal, Pedal Pulse (normal), Radial Pulse (normal). negative: Pedal Edema - Integumentary Skin: Warm, Dry Lymphatics: Normal. negative: Adenopathy - Neurologic Memory Impaired: Normal Motor Function: Normal Cranial Nerve: Normal Cerebellar: Normal Mood Description: Agitated Thought: Paranoia Perception: Normal
[2016-05-20] MEDS: OXYCODONE HCL 5 MG TABLET PO PRN (14:29)
[2016-05-20 15:19] VITALS: PULSE 98
== END 2016-05-20 17:11 | disposition home health service (06) | DRG 682 ==
LOC: ED 12:41 → MPS3 20:04 → UNDODISIN 05-13 18:31
PROVIDERS: ADMIT Family Medicine; ATTEND Hospitalist
PROC: 039B3ZZ Drainage of Right Radial Artery, Percutaneous Approach (ICD-10-PCS; 2016-05-12)
PROC: 30233N1 Transfusion of Nonautologous Red Blood Cells into Peripheral Vein, Percutaneous Approach (ICD-10-PCS; 2016-05-15)
PROC: 0DB68ZX Excision of Stomach, Via Natural or Artificial Opening Endoscopic, Diagnostic (ICD-10-PCS; principal; 2016-05-18)
PROC: 0DB78ZX Excision of Stomach, Pylorus, Via Natural or Artificial Opening Endoscopic, Diagnostic (ICD-10-PCS; 2016-05-18)
DX: N17.9 Acute kidney failure, unspecified (principal); K25.0 Acute gastric ulcer with hemorrhage; G92 Toxic encephalopathy; E87.2 Acidosis; D50.0 Iron deficiency anemia secondary to blood loss (chronic); I10 Essential (primary) hypertension; F17.210 Nicotine dependence, cigarettes, uncomplicated; F20.0 Paranoid schizophrenia; I25.810 Atherosclerosis of coronary artery bypass graft(s) without angina pectoris; J44.9 Chronic obstructive pulmonary disease, unspecified; K21.9 Gastro-esophageal reflux disease without esophagitis; E03.9 Hypothyroidism, unspecified; E80.6 Other disorders of bilirubin metabolism; E86.0 Dehydration; Z79.899 Other long term (current) drug therapy; Z95.1 Presence of aortocoronary bypass graft; E78.00 Pure hypercholesterolemia, unspecified; Z95.2 Presence of prosthetic heart valve; K44.9 Diaphragmatic hernia without obstruction or gangrene; R94.31 Abnormal electrocardiogram [ECG] [EKG]
CPT/HCPCS: 36415; 36430; 36600; 43239; 70450; 71020; 74181; 76705; 80048; 80053; 80076; 80307; 81001; 82140; 82272; 82803; 82962; 83010; 83615; 83735; 84132; 84165; 84443; 84484; 85007; 85014; 85018; 85025; 85027; 85610; 85730; 86850; 86900; 86901; 86920; 87040; 87081; 87493; 93005; 94640; 96360; 96361; 97162; 99284; 99406; J1940; J2060; J2405; J3475; J3480; J3490; J7070; J7620; P9016; S0164

== ENCOUNTER 2016-05-25 11:53 | Emergency (ER) | payer MEDICAID ==
[2016-05-25 12:07] VITALS: TEMP 97.8; BMI 25.4
[2016-05-25] MEDS ORDERED: ONDANSETRON HCL 4 MG/2 ML VIAL IV ONE (12:21)
[2016-05-25] MEDS ORDERED: NS 1,000 ML IV ONE ×2 (12:21→14:04)
[2016-05-25] MEDS ORDERED: SODIUM CHLORIDE 0.9% 10 ML FLUSH FLUSH PRN (12:21)
--- NOTE | 2016-05-25 12:23 | EDPRACDOC ---
- General Information Chief Complaint: Nausea,Vomiting,Diarrhea Stated Complaint: DIARRHEA Time Seen by Provider: 05/25/16 12:12 Information Source: Patient Mode Of Arrival: Ambulance Home Medications: Home Medications Levothyroxine Sodium 25 mcg PO DAILY 03/07/16 Metoprolol Succinate (XL) [Toprol Xl] 12.5 mg PO DAILY 03/07/16 Omeprazole 20 mg PO DAILY 03/07/16 Ciprofloxacin HCl [Cipro] 500 mg PO BID #14 tab 05/25/16 Dicyclomine HCl [Bentyl] 20 mg PO Q8H PRN #20 tab 05/25/16 Ondansetron HCl [Zofran] 4 mg PO Q8H PRN #15 tab 05/25/16 Allergies/Adverse Reactions: Allergies Allergy/AdvReac Type Severity Reaction Status Date / Time No Known Allergies Allergy Verified 05/25/16 12:00 - History of Present Illness Onset: 2 weeks HPI: Pt states diarrhea x 2 weeks. Pt states 4 episodes of diarrhea in 24 hours with nausea. Denies fever, cough, congestion, cp, sob, abd pain, changes in bladder, rash. Pt states recently hospitalized for kidney issue. Symptoms Occured: Reports: Spontaneous Duration: Reports: Since Onset Emesis: Denies: Bilious, Bloody, Coffee Grounds, Food Particles, O Pain Quality: Denies: Aching, N, Burning, Colicky, Cramping, Sharp, Stabbing, Knife-like, O Pain Severity: None : No History of: Reports: UTI Associated Signs & Symptoms: Reports: Nausea, Diarrhea Oral Intake: Decreased Urinary Output: Normal - Treatment Prior to ED Arrival Reported Medications/Treatment STORE CONSULTANT Meds/Treatments Given O2 via Cannula EMS Treatment BLS IV Yes IV Fluid Volume Administered 50 by EMS ED Past Medical History - History Reviewed Yes Nurses notes reviewed and agree except as marked - Patient Medical History Neurological History: Reports: Seizures ( BABY) Cardiac History: Reports: Coronary Artery Disease, Hypertension, Heart Attack, Cardiac Catheterization, CABG (w/ aortic valve replacement), Hypercholesterolemia, Valvular Heart Disease Respiratory History: Reports: COPD, Cough, Chronic Bronchitis, Pneumonia GI/ History: Reports: Renal Failure, Urinary Tract Infection, Gastroesophageal Reflux, Ulcer Musculoskeletal History: Reports: Arthritis Psychological History: Reports: Depression, Anxiety, Schizophrenia, Bipolar Disorder. Denies: Substance Use Disorder Systemic History: Reports: Hypothyroidism Surgical History: Reports: Cholecystectomy, CABG (w/ aortic valve replacement), Hysterectomy, Cardiac Catheterization, Tonsillectomy/Adnoidectomy, Other (C- section x2, BTL) - Family Medical History Reports: Hypertension (PARENTS), Diabetes (MOM), Cancer (PARENTS-BREAST, COLON) , Stroke (MOM), Cardiac Disorders, Respiratory Disorders - Social Medical History Smoking Status: Heavy tobacco smoker (5 or more cigarettes/day or daily pipe/ cigar) (1 1/2 ppd) Social History: Denies: Cocaine Use, Marijuana Use, Substance Use Disorder ETOH: None Substance Abuse: None EDM Review of Systems - Review of Systems Constitutional: Weakness Ears: No Symptoms Reported. negative: Pain, Hearing Loss, Drainage, Ear Pulling Throat: No Symptoms Reported. negative: Pain, Swelling Nose: No Symptoms Reported. negative: Congestion, Bleeding, Discharge, Injection, Swelling, Deformity, Ecchymosis, Tender, Abrasion, Laceration Mouth: No Symptoms Reported. negative: Pain, Drooling Respiratory: No Symptoms Reported. negative: Cough, Brassy Cough, Barky Cough, Shortness of Breath, Wheezing, Hemoptysis Cardiovascular: No Symptoms Reported. negative: Chest Pain, Palpitations, Syncope, Edema, Orthopnea, PND, Skin Mottling, Cyanosis Gastrointestinal: Diarrhea, Nausea Genitourinary: No Symptoms Reported. negative: Dysuria, Hematuria, Frequency, Discharge, Bleeding, Testicular Pain, Neurological: No Symptoms Reported. negative: Headache, Dizziness, Seizure, Numbness, Weakness, Speech Difficulty, Gait Difficulty Musculoskeletal: No Symptoms Reported. negative: Neck, Chestwall, Ribs, Back, Shoulder, Arm, Elbow, Forearm, Wrist, Hand, Pelvis, Hip, Femur, Knee, Leg, Ankle , Foot Integumentary: No Symptoms Reported. negative: Itching, Rash, Bruising, Wound Allergic/Immunologic: No Symptoms Reported. negative: Hives, Itching Hematologic: No Symptoms Reported. negative: Lymphadenopathy, Easy Bruising, Easy Bleeding Psychiatric: No Symptoms Reported. negative: Anxiety, Depression, Hallucinations, Insomnia, Suicidal - Physical Exam Constitutional: Alert Oriented to: Time, Person, Place Last recorded Vital Signs: Last Vital Signs Temp 97.8 F 05/25/16 12:03 Pulse 85 05/25/16 12:03 Resp 20 05/25/16 12:03 BP 148/70 05/25/16 12:03 Pulse Ox 94 05/25/16 12:03 Oxygen Pulse Oxygen Saturation 94 O2 Device Nasal Cannula Oxygen Flow Rate 2 Fraction of Inspired Oxygen ( FIO2) - HEENT Head: Normal ( normocephalic) Eye Exam: Normal (PERRL, EOMI, Sclera white) Oropharynx: Normal (Pharynx:Moist without exudate,Gums-no swelling) Tympanic Membrane: Normal ENT EAC: Normal Nose: No Symptoms Reported (septum midline) Neck: Normal (FROM, trachea at midline) - Respiratory/Cardiovascular Respiratory: Normal - CTA (BBS clear to auscultation without adventitious sounds ) Cardiovascular: Normal (RRR without murmur, gallop or rub) - GI Auscultation: Increased Palpation: Normal (Soft,No rebound or guarding, non distended) Tenderness: Non tender - Musculoskeletal Back: Normal (Non-Tender) Extremities: Normal (Normal tone, Pulses 2+ No cyanosis or edema, FROM) - Integumentary Skin: Normal, Warm, Dry Lymphatics: Normal (no adenopathy) - Neurologic Memory Impaired: Normal Motor Function: Normal (Normal tone, Pulses 2+ No cyanosis or edema, FROM) Mood Description: Normal Perception: Normal - Differential Diagnosis Dehydration, Food poisoning, Gastritis, Gastroenteritis, Pancreatitis, Urinary tract infection, Diarrhea - Results 05/25/16 12:15 05/25/16 12:15 05/25/16 15:36 Laboratory Results - last 24 hr 05/25/16 05/25/16 05/25/16 12:15 12:15 12:15 WBC 4.1 RBC 3.85 L Hgb 10.7 L D Hct 32.1 L MCV 83 MCH 27.7 MCHC 33.3 RDW 16.2 H Plt Count 377 MPV 8.2 Neut % (Auto) 45.4 Lymph % (Auto) 43.6 [place] % (Auto) 9.5 Eos % (Auto) 1.0 Baso % (Auto) 0.5 Absolute Neuts (auto) 1.85 Absolute Lymphs (auto) 1.76 Sodium 137 Potassium 2.8 L Chloride 106 Carbon Dioxide 23 Anion Gap 11 BUN 15 Creatinine 1.30 H Estimated GFR (MDRD) 42 L Glucose 80 Calculated Osmolality 264 L Lactic Acid 0.9 Calcium 7.3 L Corrected Calcium 9.0 Total Bilirubin 0.4 AST 36 ALT 39 Alkaline Phosphatase 182 H Total Protein 5.3 L Albumin 2.3 L Lipase Urine Color Urine Clarity Urine pH Ur Specific [place] Urine Protein Urine Glucose (UA) Urine Ketones Urine Occult Blood Urine Nitrite Urine Bilirubin Urine Urobilinogen Ur Leukocyte Esterase Urine RBC Urine WBC Urine Bacteria Urine Mucus 05/25/16 05/25/16 12:15 14:54 WBC RBC Hgb Hct MCV MCH MCHC RDW Plt Count MPV Neut % (Auto) Lymph % (Auto) [place] % (Auto) Eos % (Auto) Baso % (Auto) Absolute Neuts (auto) Absolute Lymphs (auto) Sodium Potassium Chloride Carbon Dioxide Anion Gap BUN Creatinine Estimated GFR (MDRD) Glucose Calculated Osmolality Lactic Acid Calcium Corrected Calcium Total Bilirubin AST ALT Alkaline Phosphatase Total Protein Albumin Lipase 59 Urine Color Yellow Urine Clarity Cldy Urine pH 5.0 Ur Specific [place] 1.010 Urine Protein 2+ H Urine Glucose (UA) Neg Urine Ketones Neg Urine Occult Blood 1+ H Urine Nitrite Pos H Urine Bilirubin Neg Urine Urobilinogen <2.0 Ur Leukocyte Esterase Trace H Urine RBC 0-2 Urine WBC 30-40 H Urine Bacteria 4+ H Urine Mucus Large Decision Time to Discharge: 15:38 - Departure Disposition: Home Condition: Good Final Diagnosis: Hypokalemia UTI (urinary tract infection) Qualifiers: Urinary tract infection type: acute cystitis Hematuria presence: without hematuria Qualified Code(s): N30.00 - Acute cystitis without hematuria Diarrhea Qualifiers: Diarrhea type: unspecified type Qualified Code(s): R19.7 - Diarrhea, unspecified Instructions: Urinary Tract Infection in Women (ED), Dysuria, Acute Diarrhea ( ED), Hypokalemia (ED) Education/Counseling Given To: Patient Education/Counseling Given Regarding: Diagnosis, Treatment, Follow Up Referrals: None,No Provider [NonStaff] - One Week Gildardo Dunaway MD [Staff Physician] - One Week Prescriptions: Ciprofloxacin HCl [Cipro] 500 mg PO BID #14 tab Dicyclomine HCl [Bentyl] 20 mg PO Q8H PRN #20 tab PRN Reason: Pain Ondansetron HCl [Zofran] 4 mg PO Q8H PRN #15 tab PRN Reason: Nausea/Vomiting Additional Instructions: Drink sips of Gatorade every 2-3 minutes while awake. Do NOT drink large volumes of fluid at once. If you vomit, take the nausea-vomiting medicine prescribed, wait ~ 30 minutes, and restart the sipping process. Return to the Emergency Department if you think you are getting dehydrated, have persistent abdominal pain that is unrelenting, have worse or different symptoms, or any concerns.
[2016-05-25 13:12] LABS: AUTOMATED BASOPHIL 0.5 % (0-2); AUTOMATED LYMPH 43.6 % (17-44); AUTOMATED MONOCYTE 9.5 % (3-10); AUTOMATED NEUTROPHIL 45.4 % (45-76); MPV 8.2 fL (7.4-10.4)
[2016-05-25 13:28] LABS: BLOOD UREA NITROGEN 15 MG/DL (7-17); CALCIUM 7.3 MG/DL (8.4-10.2); CALCULATED OSMOLALITY 264 MOs/Kg (270-290); CHLORIDE 106 mEq/L (98-107); GLUCOSE 80 MG/DL (70-99); SODIUM LEVEL 137 mEq/L (137-146); TOTAL PROTEIN 5.3 G/DL (6.3-8.2)
[2016-05-25] MEDS: KCl 10 mEq/100 ml Premix (Run) 10 MEQ/100 ML RTU IV SCH ×2 (14:25→16:08)
[2016-05-25 15:27] LABS: LEUKOCYTES/URINE TRACE (NEGATIVE); NITRITE/URINE POS (NEGATIVE); URINE OCCULT BLOOD 1+ (NEG/TRACE); WBC/URINE 30-40 (0-5)
[2016-05-25 15:28] LABS: RBC/URINE 0-2 (0-5)
[2016-05-25] MEDS ORDERED: POTASSIUM CHLORIDE 20 MEQ TAB PO ONE (15:37)
[2016-05-25 16:09] VITALS: BP 137/74; PULSE 89
== END 2016-05-25 16:08 | disposition home or self-care (01) ==
LOC: ED 11:53
DX: E87.6 Hypokalemia (principal); N30.00 Acute cystitis without hematuria; R19.7 Diarrhea, unspecified
CPT/HCPCS: 36415; 80053; 81001; 83605; 83690; 85025; 87045; 87046; 87427; 87449; 87493; 96361; 96365; 96375; 99284; J2405; J3480; J3490

== ENCOUNTER 2016-05-29 15:59 | Inpatient (IN) | payer MEDICAID ==
--- NOTE | 2016-05-29 16:58 | EDPRACDOC ---
<Stiven Livingston - Last Filed: 05/29/16 18:46> - General Information Information Source: Patient - History of Present Illness Onset: 2 weeks HPI: C/o diarrhea 4-5x a day x 2 weeks. Was seen here Wednesday for same sx, dx with UTI. Pt has trouble getting to the bathroom and so does not get there in time. Denies cp, sob, fever, cough, sore throat, chnages in urine or BM. Med hx = valve replacement (pt unaware which), hypothyroid, arthritis, HTN, COPD. Surgical hx= jayme, hysterectomy. # Diarrhea Episodes in Last 24 Hrs: 5 Description: Reports: Spontaneous Recent: Reports: Other (recent hospitalization) Recent Ingestion of: Denies: Nothing, Possible Spoiled Food, Ciguatera, Scombroid, Shellfish, Other Relevant History: Reports: None Diarrhea Quality: Reports: Watery Associated Signs & Symptoms: Reports: None Pain Quality: Denies: Aching, Burning, Cramping, Sharp, Stabbing, Other Pain Location: Denies: Diffuse, Epigastric, RUQ, LUQ, RLQ, LLQ, Suprapubic, Other <Michael Ruano - Last Filed: 05/29/16 19:09> - General Information Chief Complaint: Nausea,Vomiting,Diarrhea Stated Complaint: WEAKNESS/DIARRHEA Time Seen by Provider: 05/29/16 16:48 Home Medications: Home Medications Levothyroxine Sodium 25 mcg PO DAILY 03/07/16 Metoprolol Succinate (XL) [Toprol Xl] 12.5 mg PO DAILY 03/07/16 Omeprazole 20 mg PO DAILY 03/07/16 Ciprofloxacin HCl [Cipro] 500 mg PO BID #14 tab 05/25/16 Ondansetron HCl [Zofran] 4 mg PO Q8H PRN #15 tab 05/25/16 Allergies/Adverse Reactions: Allergies Allergy/AdvReac Type Severity Reaction Status Date / Time No Known Allergies Allergy Verified 05/25/16 12:00 ED Past Medical History - History Reviewed Yes Nurses notes reviewed and agree except as marked - Patient Medical History Neurological History: Reports: Seizures ( BABY) Cardiac History: Reports: Coronary Artery Disease, Hypertension, Heart Attack, Cardiac Catheterization, CABG (w/ aortic valve replacement), Hypercholesterolemia, Valvular Heart Disease Respiratory History: Reports: COPD, Cough, Chronic Bronchitis, Pneumonia GI/ History: Reports: Renal Failure, Urinary Tract Infection, Gastroesophageal Reflux, Ulcer Musculoskeletal History: Reports: Arthritis Psychological History: Reports: Anxiety, Schizophrenia, Bipolar Disorder. Denies: Depression, Substance Use Disorder Systemic History: Reports: Hypothyroidism Surgical History: Reports: Cholecystectomy, CABG (w/ aortic valve replacement), Cardiac Catheterization, Tonsillectomy/Adnoidectomy, Other ( x2, BTL) . Denies: Hysterectomy - Family Medical History Reports: Hypertension (PARENTS), Diabetes (MOM), Cancer (PARENTS-BREAST, COLON) , Stroke (MOM), Cardiac Disorders, Respiratory Disorders - Social Medical History Smoking Status: Heavy tobacco smoker (5 or more cigarettes/day or daily pipe/ cigar) Social History: Denies: Cocaine Use, Marijuana Use, Substance Use Disorder <Michael Ruano - Last Filed: 05/29/16 19:09> EDM Review of Systems - Review of Systems ROS Negative Except as Marked: Yes All systems reviewed and were negative except as marked Gastrointestinal: Diarrhea <Michael Ruano - Last Filed: 05/29/16 19:09> - Physical Exam Last recorded Vital Signs: Last Vital Signs Temp 97.7 F 05/29/16 16:27 Pulse 71 05/29/16 18:39 Resp 20 05/29/16 18:39 BP 138/67 05/29/16 18:39 Pulse Ox 97 05/29/16 18:39 Oxygen Pulse Oxygen Saturation 97 O2 Device Room Air Oxygen Flow Rate Fraction of Inspired Oxygen ( FIO2) <Stiven Livingston - Last Filed: 05/29/16 18:46> - Physical Exam Constitutional: No apparent distress, Alert Oriented to: Time, Person, Place Last recorded Vital Signs: Last Vital Signs Temp 97.7 F 05/29/16 16:27 Pulse 77 05/29/16 16:27 Resp 20 05/29/16 16:27 BP 140/88 05/29/16 16:27 Pulse Ox 99 05/29/16 16:27 Oxygen Pulse Oxygen Saturation 99 O2 Device Oxygen Flow Rate Fraction of Inspired Oxygen ( FIO2) - HEENT Head: Normal Eye Exam: negative: Conjunctival Injection, Scleral Icterus Oropharynx: negative: Drooling TMJ: Normal Nose: No Symptoms Reported Neck: Normal - Respiratory/Cardiovascular Respiratory: Rhonchi (left side) Cardiovascular: Normal - GI Auscultation: Normal Palpation: Normal Tenderness: Non tender - Musculoskeletal Back: Normal Extremities: Normal - Integumentary Skin: Normal - Neurologic Mood Description: Normal Thought: Coherent Perception: Normal <Michael Ruanoon - Last Filed: 05/29/16 19:09> - Results 05/29/16 16:17 05/29/16 16:17 WBC 7.4 xk/uL (3.8-10.8) 05/29/16 16:17 RBC 3.74 xM/uL (4.20-5.40) L 05/29/16 16:17 Hgb 10.5 g/dL (12.0-16.0) L 05/29/16 16:17 Hct 31.2 % (36-47) L 05/29/16 16:17 MCV 84 fL (81-99) 05/29/16 16:17 MCH 28.0 pg (27-32) 05/29/16 16:17 MCHC 33.5 g/dl (33-36) 05/29/16 16:17 RDW 16.1 % (11.5-14.5) H 05/29/16 16:17 Plt Count 257 xk/uL (130-400) 05/29/16 16:17 MPV 8.8 fL (7.4-10.4) 05/29/16 16:17 Neut % (Auto) 64.1 % (45-76) 05/29/16 16:17 Lymph % (Auto) 26.5 % (17-44) 05/29/16 16:17 [place] % (Auto) 6.1 % (3-10) 05/29/16 16:17 Eos % (Auto) 2.4 % (0-5) 05/29/16 16:17 Baso % (Auto) 0.9 % (0-2) 05/29/16 16:17 Absolute Neuts (auto) 4.74 xk/uL (1.7-8.2) 05/29/16 16:17 Absolute Lymphs (auto) 1.92 xk/uL (0.65-4.75) 05/29/16 16:17 PT 15.4 SEC (9.2-11.2) H 05/29/16 16:17 INR 1.5 05/29/16 16:17 APTT 26.2 SEC (22-35) 05/29/16 16:17 Sodium 133 mEq/L (137-146) L 05/29/16 16:17 Potassium 2.7 mEq/L (3.5-5.1) L 05/29/16 16:17 Chloride 104 mEq/L (98-107) 05/29/16 16:17 Carbon Dioxide 20 mMOL/L (22-33) L 05/29/16 16:17 Anion Gap 12 mEq/L (8-16) 05/29/16 16:17 BUN 7 MG/DL (7-17) 05/29/16 16:17 Creatinine 1.30 MG/DL (0.52-1.04) H 05/29/16 16:17 Estimated GFR (MDRD) 42 mL/min (>=60) L 05/29/16 16:17 Glucose 103 MG/DL (70-99) H 05/29/16 16:17 Calculated Osmolality 254 MOs/Kg (270-290) L 05/29/16 16:17 Calcium 7.0 MG/DL (8.4-10.2) L 05/29/16 16:17 Corrected Calcium 8.5 MG/DL (8.4-10.2) 05/29/16 16:17 Total Bilirubin 0.4 MG/DL (0.2-1.3) 05/29/16 16:17 AST 35 IU/L (14-36) 05/29/16 16:17 ALT 36 IU/L (9-52) 05/29/16 16:17 Alkaline Phosphatase 149 IU/L (55-165) 05/29/16 16:17 Troponin I 0.09 ng/mL (<.04) 05/29/16 16:17 Total Protein 5.2 G/DL (6.3-8.2) L 05/29/16 16:17 Albumin 2.2 G/DL (3.5-5.0) L 05/29/16 16:17 Urine Color Yellow 05/29/16 17:30 Urine Clarity Clear 05/29/16 17:30 Urine pH 6.0 (5.0-8.0) 05/29/16 17:30 Ur Specific [place] 1.015 (1.003-1.035) 05/29/16 17:30 Urine Protein 1+ (NEG/TRACE) H 05/29/16 17:30 Urine Glucose (UA) Neg (NEGATIVE) 05/29/16 17:30 Urine Ketones Neg (NEGATIVE) 05/29/16 17:30 Urine Occult Blood Neg (NEG/TRACE) 05/29/16 17:30 Urine Nitrite Neg (NEGATIVE) 05/29/16 17:30 Urine Bilirubin Neg (NEGATIVE) 05/29/16 17:30 Urine Urobilinogen <2.0 MG/DL (0-1) 05/29/16 17:30 Ur Leukocyte Esterase Neg (NEGATIVE) 05/29/16 17:30 Urine RBC 0-2 (0-5) 05/29/16 17:30 Urine WBC 5-10 (0-5) H 05/29/16 17:30 Ur Epithelial Cells Occ 05/29/16 17:30 Urine Bacteria Few (NEG/FEW) 05/29/16 17:30 Hyaline Casts 5-10 (0-2) H 05/29/16 17:30 Urine Mucus Large (NEG/OCC) 05/29/16 17:30 Lab Results 05/29/16 05/29/16 05/29/16 17:30 16:17 16:17 WBC 7.4 RBC 3.74 L Hgb 10.5 L Hct 31.2 L MCV 84 MCH 28.0 MCHC 33.5 RDW 16.1 H Plt Count 257 MPV 8.8 Neut % (Auto) 64.1 Lymph % (Auto) 26.5 [place] % (Auto) 6.1 Eos % (Auto) 2.4 Baso % (Auto) 0.9 Absolute Neuts (auto) 4.74 Absolute Lymphs (auto) 1.92 PT 15.4 H INR 1.5 APTT 26.2 Sodium Potassium Chloride Carbon Dioxide Anion Gap BUN Creatinine Estimated GFR (MDRD) Glucose Calculated Osmolality Calcium Corrected Calcium Total Bilirubin AST ALT Alkaline Phosphatase Troponin I Total Protein Albumin Urine Color Yellow Urine Clarity Clear Urine pH 6.0 Ur Specific [place] 1.015 Urine Protein 1+ H Urine Glucose (UA) Neg Urine Ketones Neg Urine Occult Blood Neg Urine Nitrite Neg Urine Bilirubin Neg Urine Urobilinogen <2.0 Ur Leukocyte Esterase Neg Urine RBC 0-2 Urine WBC 5-10 H Ur Epithelial Cells Occ Urine Bacteria Few Hyaline Casts 5-10 H Urine Mucus Large 05/29/16 16:17 WBC RBC Hgb Hct MCV MCH MCHC RDW Plt Count MPV Neut % (Auto) Lymph % (Auto) [place] % (Auto) Eos % (Auto) Baso % (Auto) Absolute Neuts (auto) Absolute Lymphs (auto) PT INR APTT Sodium 133 L Potassium 2.7 L Chloride 104 Carbon Dioxide 20 L Anion Gap 12 BUN 7 Creatinine 1.30 H Estimated GFR (MDRD) 42 L Glucose 103 H Calculated Osmolality 254 L Calcium 7.0 L Corrected Calcium 8.5 Total Bilirubin 0.4 AST 35 ALT 36 Alkaline Phosphatase 149 Troponin I 0.09 Total Protein 5.2 L Albumin 2.2 L Urine Color Urine Clarity Urine pH Ur Specific [place] Urine Protein Urine Glucose (UA) Urine Ketones Urine Occult Blood Urine Nitrite Urine Bilirubin Urine Urobilinogen Ur Leukocyte Esterase Urine RBC Urine WBC Ur Epithelial Cells Urine Bacteria Hyaline Casts Urine Mucus <Stiven Livingston - Last Filed: 05/29/16 18:46> - Results 05/29/16 16:17 05/29/16 16:17 - EKG EKG #1 EKG Time: 17:17 -: Yes EKG interpreted by me Rate: bpm: 69 Rhythm: Other (sinus rhythm ) ST: Nonsp Comparison: 05/08/16 (similar nonspecific t wave inversions anterolaterally) - Diagnostic Imaging Chest Image interpreted by: Radiologist EXAM: PORTABLE CHEST 1 VIEW COMPARISON: 05/08/2016 FINDINGS: Status post median sternotomy and valve replacement. The heart is upper limits normal in size. There is minimal density in the lingula consistent with atelectasis or early infiltrate. No evidence for pulmonary edema. IMPRESSION: 1. Postoperative changes. 2. Lingular atelectasis or infiltrate. Electronically Signed By: Martha Moe M.D. On: 05/29/2016 17:15 <Michael Ruano - Last Filed: 05/29/16 19:09> Decision Time to Discharge: 18:46 - Departure Yes I personally saw and evaluated the patient. Disposition: Admit IP To This Hospital Education/Counseling Given To: Patient Education/Counseling Given Regarding: Diagnosis, Treatment, Prognosis Decision to Admit Time: 18:48 Decision to admit date: 05/29/16 Decision to admit: from ED - Physician Consulted Hospitalist Time Called: 18:48 Provider Called: Steven Hayward Time [employer] Returned Call: 18:48 <MikiStiven - Last Filed: 05/29/16 18:46> <Michael Ruano - Last Filed: 05/29/16 19:09> - Departure Condition: Stable Final Diagnosis: General weakness, Dehydration, Hypokalemia Diarrhea Qualifiers: Diarrhea type: unspecified type Qualified Code(s): R19.7 - Diarrhea, unspecified Pneumonia Qualifiers: Pneumonia type: due to unspecified organism Laterality: left Lung location: lower lobe of lung Qualified Code(s): J18.1 - Lobar pneumonia, unspecified organism Instructions: Acute Diarrhea (ED) Referrals: Florentino Russo MD [Primary Care Provider] - One Week Prescriptions: No Action Omeprazole 20 mg PO DAILY Metoprolol Succinate (XL) [Toprol Xl] 12.5 mg PO DAILY Levothyroxine Sodium 25 mcg PO DAILY Ciprofloxacin HCl [Cipro] 500 mg PO BID #14 tab Ondansetron HCl [Zofran] 4 mg PO Q8H PRN #15 tab PRN Reason: Nausea/Vomiting
--- NOTE | 2016-05-29 17:18 | DIRPT ---
CLINICAL DATA: Patient was found on the floor for unknown reason. Diarrhea for 2 weeks. Patient is weak and cannot get to the bathroom in time. Diarrhea for 4 to 5 times a day for 2 weeks. EXAM: PORTABLE CHEST 1 VIEW COMPARISON: 05/08/2016 FINDINGS: Status post median sternotomy and valve replacement. The heart is upper limits normal in size. There is minimal density in the lingula consistent with atelectasis or early infiltrate. No evidence for pulmonary edema. IMPRESSION: 1. Postoperative changes. 2. Lingular atelectasis or infiltrate. Electronically Signed By: Martha Moe M.D. On: 05/29/2016 17:15
[2016-05-29 17:22] LABS: AUTOMATED BASOPHIL 0.9 % (0-2); AUTOMATED EOSINOPHIL 2.4 % (0-5); AUTOMATED LYMPH 26.5 % (17-44); AUTOMATED MONOCYTE 6.1 % (3-10); AUTOMATED NEUTROPHIL 64.1 % (45-76); MPV 8.8 fL (7.4-10.4)
[2016-05-29 17:36] LABS: PARTIAL THROMB. TIME 26.2 SEC (22-35); PT-INR 1.5
[2016-05-29 17:41] LABS: BLOOD UREA NITROGEN 7 MG/DL (7-17); CALC CORRECTED 8.5 MG/DL (8.4-10.2); CALCULATED OSMOLALITY 254 MOs/Kg (270-290); CHLORIDE 104 mEq/L (98-107); GLUCOSE 103 MG/DL (70-99); SODIUM LEVEL 133 mEq/L (137-146); TOTAL PROTEIN 5.2 G/DL (6.3-8.2)
[2016-05-29 17:51] LABS: LEUKOCYTES/URINE NEG (NEGATIVE); NITRITE/URINE NEG (NEGATIVE); RBC/URINE 0-2 (0-5); URINE OCCULT BLOOD NEG (NEG/TRACE)
[2016-05-29] MEDS ORDERED: NS 1,000 ML IV ONE (18:48)
[2016-05-29] MEDS ORDERED: POTASSIUM CHLORIDE 20 MEQ TAB PO ONE (18:48)
[2016-05-29] MEDS ORDERED: CEFTRIAXONE 1 GM in D5W 100 ML IV ONE (18:49)
[2016-05-29] MEDS ORDERED: PIPERACILLIN AND TAZOBACTAM 3.375 GM in D5W 100 ML IV ONE (19:06)
[2016-05-29] MEDS: AZITHROMYCIN 250 MG TAB PO ONE ×2 (19:20)
--- NOTE | 2016-05-29 19:23 | HISTPHYS ---
- Chief Complaint vomiting and diarrhea - History of Present Illness PRIMARY CARE PROVIDER: Dr. Russo in [place] GI: Has seen Dr. Cruz in the hospital in the past but has not had any appointments at his office HPI: The patient is a 60 yo woman who was admitted to the hospital 05/08/16 to 05/20/16 and presents today with diarrhea. She reports she kept having diarrhea, usually 4-5 times per day. She stays in the bathroom most of the day because of the abdominal issues. She reports she she did NOT have any vomiting. Has had a good appetite and has been able to eat. Onset: 8 days ago. Duration: intermittent. Location: generalized. Character: Diarrhea is watery. Alleviated by: Nothing. Exacerbated by: Nothing. Associated Symptoms: No abdominal pain, nausea, vomiting, constipation, or bloody stool. No fever or chills. No cough, wheezing, or shortness of breath. Treatments: none at home except usual medications. Recent foods include spaghetti, ashraf beans. Does not usually eat breakfast. Oxygen: wears mostly at night, 2L. Admission 05/08/16 to 05/20/16: Diagnosed with anemia due to GI bleeding, gastric ulcer by EGD, acute renal failure with Cr initially 4.3, and COPD. Had workup including CT abdomen/pelvis, abdominal ultrasound, EGD, and MRCP. - Medical History Cardiac History: Reports: Coronary Artery Disease, Hypertension, Heart Attack, Cardiac Catheterization, Hypercholesterolemia, Valvular Heart Disease (AORTIC VALVE REPLACEMENT 2013 at [facility]. Pig valve.) Respiratory History: Reports: COPD, Cough, Chronic Bronchitis, Pneumonia GI/ History: Reports: Urinary Tract Infection, Gastroesophageal Reflux, Ulcer Musculoskeletal History: Reports: Arthritis Systemic History: Reports: Hypothyroidism Neurological History: Reports: Seizures ( BABY, none since then) Psychological History: Reports: Anxiety, Schizophrenia, Bipolar Disorder - Surgical History Reports: Cholecystectomy, Cardiac Catheterization (and aortic valve replacement) , Tonsillectomy/Adnoidectomy, Other ( x2, BTL. AORTIC VALVE REPLACEMENT) - Medictions/Allergies Allergies No Known Allergies Allergy (Verified 05/25/16 12:00) Current Medication List: Reviewed Home Medications Levothyroxine Sodium 25 mcg PO DAILY 03/07/16 Metoprolol Succinate (XL) [Toprol Xl] 12.5 mg PO DAILY 03/07/16 Omeprazole 20 mg PO DAILY 03/07/16 Ciprofloxacin HCl [Cipro] 500 mg PO BID #14 tab 05/25/16 Ondansetron HCl [Zofran] 4 mg PO Q8H PRN #15 tab 05/25/16 - Family History Reports: Hypertension (PARENTS), Diabetes (MOM), Cancer (PARENTS-BREAST, COLON) , Stroke (MOM), Cardiac Disorders (Father: [place].), Respiratory Disorders - Social History Lives: With Family (Son lives with her.) Smoking Status: Former smoker (Quit 05/03/16. Prev 1.5 to 2 ppd.) Social History: Denies: Alcohol Use, Substance Use Disorder Quit smoking 05/03/16. Previously smoked 1.5 to 2 ppd. Started in 30s. No alcohol. No drugs. - Review of Systems GENERAL: No Fever, chills, or diaphoresis. Positive for fatigue/malaise. HEENT: No ear pain or discharge. No nasal discharge or bleeding. No throat pain or swelling. No eye pain or eye redness. RESPIRATORY: No cough, wheezing, or shortness of breath. CARDIOVASCULAR: No chest pain or palpitations. GI: Diarrhea. No vomiting. See HPI. NEUROLOGICAL: No headache or focal weakness. INTEGUMENT: no rashes, itching, or lesions. LYMPHATIC SYSTEM: no lymph node swelling or pain. MUSCULOSKELETAL: no new pain or joint swelling. GENITOURINARY: No dysuria or hematuria. ENDOCRINE: No polyuria or polydipsia. HEME: No chronic anemia, bleeding, or easy bruising. - Physical Exam Vital Signs: Initial Vitals Temperature 97.7 F 05/29/16 16:27 Pulse Rate 77 05/29/16 16:27 Respiratory Rate 20 05/29/16 16:27 Blood Pressure 140/88 05/29/16 16:27 Pulse Oxygen Saturation 99 05/29/16 16:27 Vital Signs - 24 hr 05/29/16 05/29/16 05/29/16 16:27 17:02 18:39 Temperature 97.7 F Pulse Rate 77 71 71 Respiratory 20 20 20 Rate Blood Pressure 140/88 133/60 138/67 Pulse Oxygen 99 98 97 Saturation 05/29/16 19:20 Temperature Pulse Rate 76 Respiratory 19 Rate Blood Pressure 144/67 Pulse Oxygen 99 Saturation Weight: 58.9 kg Height: 5' BMI: 28.4 - Other Exam Other Exam Findings: GENERAL: Ill-appearing, well nourished, in mild acute distress. HEENT: Normocephalic, atraumatic; pupils equal and round. Nares patent, without discharge or bleeding. No oropharyngeal lesions or erythema. Mucous membranes are dry. NECK: is supple, no masses, trachea midline. RESPIRATORY: Clear to auscultation bilaterally. Chest wall movements are symmetric. No use of accessory muscles to breathe. No wheezing, rales, rhonchi. CARDIOVASCULAR: Normal S1, S2. Murmur 3/6 systolic. No rubs, or gallops. PMI non -displaced. Carotids: no carotid bruits. No bradycardia or tachycardia. DP pulses 2+ bilaterally. GI: soft, non-distended, normal active bowel sounds. No hepatosplenomegaly. Mild epigastric and right upper quadrant tenderness. INTEGUMENT: Dry, and intact. No rashes. No lesions. MUSCULOSKELETAL: Moving all extremities. No cyanosis. No clubbing. Edema: none bilaterally. NEUROLOGICAL: Cranial nerves 2-12 grossly intact. Motor 4/5 throughout. Reflexes : 2+ bilaterally. Babinski: toes downgoing bilaterally. Intact Finger to nose. Sensory grossly intact to light touch. Intact rapid alternating movements bilaterally. No pronator drift. PSYCHIATRIC: Fully oriented. Flat affect. LYMPHATIC: No cervical lymphadenopathy. No supraclavicular lymphadenopathy. - Lab Results Laboratory Results - last 24 hr 05/29/16 05/29/16 05/29/16 16:17 16:17 16:17 WBC 7.4 RBC 3.74 L Hgb 10.5 L Hct 31.2 L MCV 84 MCH 28.0 MCHC 33.5 RDW 16.1 H Plt Count 257 MPV 8.8 Neut % (Auto) 64.1 Lymph % (Auto) 26.5 [place] % (Auto) 6.1 Eos % (Auto) 2.4 Baso % (Auto) 0.9 Absolute Neuts (auto) 4.74 Absolute Lymphs (auto) 1.92 PT 15.4 H INR 1.5 APTT 26.2 Sodium 133 L Potassium 2.7 L Chloride 104 Carbon Dioxide 20 L Anion Gap 12 BUN 7 Creatinine 1.30 H Estimated GFR (MDRD) 42 L Glucose 103 H Calculated Osmolality 254 L Calcium 7.0 L Corrected Calcium 8.5 Total Bilirubin 0.4 AST 35 ALT 36 Alkaline Phosphatase 149 Troponin I 0.09 Total Protein 5.2 L Albumin 2.2 L Urine Color Urine Clarity Urine pH Ur Specific Anderson Urine Protein Urine Glucose (UA) Urine Ketones Urine Occult Blood Urine Nitrite Urine Bilirubin Urine Urobilinogen Ur Leukocyte Esterase Urine RBC Urine WBC Ur Epithelial Cells Urine Bacteria Hyaline Casts Urine Mucus 05/29/16 17:30 WBC RBC Hgb Hct MCV MCH MCHC RDW Plt Count MPV Neut % (Auto) Lymph % (Auto) [place] % (Auto) Eos % (Auto) Baso % (Auto) Absolute Neuts (auto) Absolute Lymphs (auto) PT INR APTT Sodium Potassium Chloride Carbon Dioxide Anion Gap BUN Creatinine Estimated GFR (MDRD) Glucose Calculated Osmolality Calcium Corrected Calcium Total Bilirubin AST ALT Alkaline Phosphatase Troponin I Total Protein Albumin Urine Color Yellow Urine Clarity Clear Urine pH 6.0 Ur Specific Anderson 1.015 Urine Protein 1+ H Urine Glucose (UA) Neg Urine Ketones Neg Urine Occult Blood Neg Urine Nitrite Neg Urine Bilirubin Neg Urine Urobilinogen <2.0 Ur Leukocyte Esterase Neg Urine RBC 0-2 Urine WBC 5-10 H Ur Epithelial Cells Occ Urine Bacteria Few Hyaline Casts 5-10 H Urine Mucus Large - Diagnostic Findings DIAGNOSTIC DATA: EK beats per minute. Sinus rhythm with short p.r.n. interval. Low- voltage QRS. ST and T-wave abnormality, consider inferolateral ischemia. Minimal T-wave inversion in leads 1, 2, AVF, V4, V5, and V6. Flat T-wave in lead 3 and V3. Reviewed EKG personally. IMAGING: Chest x-ray, viewed personally: CLINICAL DATA: Patient was found on the floor for unknown reason. Diarrhea for 2 weeks. Patient is weak and cannot get to the bathroom in time. Diarrhea for 4 to 5 times a day for 2 weeks. EXAM: PORTABLE CHEST 1 VIEW COMPARISON: 05/08/2016 FINDINGS: Status post median sternotomy and valve replacement. The heart is upper limits normal in size. There is minimal density in the lingula consistent with atelectasis or early infiltrate. No evidence for pulmonary edema. IMPRESSION: 1. Postoperative changes. 2. Lingular atelectasis or infiltrate. PREVIOUS IMAGING AND TESTING: MRCP Abdomen on 05/08/16: CLINICAL DATA: Vomiting for 1 month. Evaluate for common bile duct obstruction. EXAM: MRI ABDOMEN WITHOUT CONTRAST (INCLUDING MRCP) TECHNIQUE: Multiplanar multisequence MR imaging of the abdomen was performed. Heavily T2-weighted images of the biliary and pancreatic ducts were obtained, and three-dimensional MRCP images were rendered by post processing. COMPARISON: 03/07/2016 FINDINGS: Lower chest: A small amount of pleural fluid is noted bilaterally. Hepatobiliary: There is mild diffuse hepatic steatosis noted. No focal liver abnormality identified. Previous cholecystectomy. There is no intrahepatic bile duct dilatation identified. The common bile duct is mildly prominent with a maximum diameter of 5 mm. This is within normal limits in a patient who is status post cholecystectomy. No obstructing stone is identified within the common bile duct. Within the limitations of noncontrast technique no mass is identified. Pancreas: There is no pancreatic duct dilatation identified. No focal pancreas abnormality identified. Spleen: Negative Adrenals/Urinary Tract: No focal adrenal abnormality identified. There is a cyst within the mid left kidney which measures 1.4 cm, image 26 of series 7. No obstructive uropathy is identified. Stomach/Bowel: The stomach appears normal. The upper abdominal bowel loops appear increased in caliber. Small bowel air-fluid levels are noted. There appears to be edema involving the wall of the colon. Vascular/Lymphatic: Normal caliber of the abdominal aorta. Aortic atherosclerosis is again noted. No adenopathy identified. Other: There is diffuse body wall edema, ascites and mesenteric and retroperitoneal edema. Musculoskeletal: No suspicious bone abnormalities identified. IMPRESSION: 1. No evidence for biliary obstruction. The common bile duct is normal in caliber for a patient who is status post cholecystectomy. There is no intrahepatic bile duct dilatation. 2. Anasarca and ascites. 3. Aortic atherosclerosis 4. Mild increase caliber of the bowel loops, etiology uncertain. There is also mild edema involving the wall of the colon which may be secondary to anasarca. Correlate for any clinical signs or symptoms of enteritis or colitis. 5. Hepatic steatosis. US Abdomen 05/08/16: Exam(s): [id number] US/US GALLBLADDER-BILIARY (RUQ) CLINICAL DATA: Hyperbilirubinemia. History of a cholecystectomy. EXAM: US ABDOMEN LIMITED - RIGHT UPPER QUADRANT COMPARISON: CT, 03/07/2016 FINDINGS: Gallbladder: Surgically absent. Common bile duct: Diameter: 6.1 mm. Distal duct not seen. No evidence of a duct stone. Liver: No focal lesion identified. Within normal limits in parenchymal echogenicity. IMPRESSION: 1. Common bile duct is normal in caliber for this patient's age and given the history of prior cholecystectomy. No evidence of a duct stone. Distal duct not visualized on this exam. 2. Normal sonographic appearance of the liver. Head CT 05/08/16: Exam(s): [id number] CT/CT HEAD W/O CM CLINICAL DATA: Patient with altered mental status. Combative. EXAM: CT HEAD WITHOUT CONTRAST TECHNIQUE: Contiguous axial images were obtained from the base of the skull through the vertex without intravenous contrast. COMPARISON: Brain CT 03/07/2016. FINDINGS: Ventricles and sulci are prominent compatible with atrophy. Periventricular and subcortical white matter hypodensity compatible with chronic small vessel ischemic changes. No evidence for acute cortically based infarct, intracranial hemorrhage, mass lesion or mass-effect. Orbits are unremarkable. Paranasal sinuses are unremarkable. Fluid within left mastoid air cells. Calvarium is intact. IMPRESSION: No acute intracranial process. Chronic small vessel ischemic changes. CT Abdomen and Pelvis 03/07/16: Exam(s): [id number] CT/CT ABD-PELV W/IV CM CLINICAL DATA: Abdominal pain. Elevated bilirubin and elevated white blood cell count. EXAM: CT ABDOMEN AND PELVIS WITH CONTRAST TECHNIQUE: Multidetector CT imaging of the abdomen and pelvis was performed using the standard protocol following bolus administration of intravenous contrast. CONTRAST: 80 cc Isovue 370 COMPARISON: None. FINDINGS: Lower chest: Emphysematous changes are noted at the lung bases. No acute pulmonary findings or pleural effusion. The heart is mildly enlarged. No pericardial effusion. The distal esophagus is grossly normal. Moderate atherosclerotic calcifications involving the distal descending thoracic aorta. Hepatobiliary: No focal hepatic lesions or intrahepatic biliary dilatation. The gallbladder is surgically absent. No common bile duct dilatation. Pancreas: No mass, inflammation or ductal dilatation. Spleen: Normal size. No focal lesions. Adrenals/Urinary Tract: Bilateral adrenal gland lesions are low-attenuation and likely benign adenomas. Small bilateral renal cysts. No worrisome renal lesions or hydronephrosis. No obstructing ureteral calculi or bladder calculi. Stomach/Bowel: There is fairly marked gastric wall thickening hand diffuse enhancement involving the fundal and body regions of the stomach most likely due to gastritis. Recommend endoscopic evaluation. The antropyloric region is normal. The duodenum is normal. The small bowel and colon are unremarkable. No inflammatory changes, mass lesions or obstructive findings. Vascular/Lymphatic: Advanced atherosclerotic calcifications involving the aorta and branch vessels. No focal aneurysm or dissection. The major venous structures are patent. No mesenteric or retroperitoneal mass or adenopathy. Small scattered lymph nodes are noted. Reproductive: The uterus is surgically absent. Both ovaries are still present and appear normal. Other: No pelvic mass, adenopathy or free pelvic fluid collections. No inguinal mass or adenopathy. Musculoskeletal: No significant bony findings. IMPRESSION: 1. Fairly marked gastric wall thickening and enhancement suspicious for gastritis. GI consultation/ Endoscopic evaluation may be indicated. 2. Status post cholecystectomy. No biliary dilatation. 3. Advanced atherosclerotic calcifications involving the aorta and iliac arteries. 4. Bilateral adrenal gland lesions are most likely adenomas. A followup noncontrast abdominal CT scan in 4-6 months is suggested to document stability. EGD: DATE OF PROCEDURE: 05/18/16 PROCEDURE: EGD with biopsies INDICATIONS: GI bleeding, patient had decreased hemoglobin to 7 status post 2 units of PRBC. Reported melanotic stools CONSENT: The benefits, risks, and alternatives to the procedure were discussed. The risks of bleeding, perforation and aspiration were discussed at less than 1% . Informed consent was obtained from the patient. MEDICATIONS: Per Anesthesia. DESCRIPTION OF PROCEDURE: The patient was placed in the left lateral position. The Olympus video endoscope GIFH-180 was passed with ease under direct visualization to the second portion of the duodenum. The esophagus, stomach, and duodenum were examined on insertion and withdrawal of the scope. At least two passes were made. FINDINGS: ESOPHAGUS: The esophagus was normal. There were no esophageal ulcers, masses or varices visualized. The Z-line was well defined at 35 cm. The lower end of the esophagus was examined by narrow band imaging as well. STOMACH: A small hiatal hernia was noted. A gastric ulcer was noted measuring 1 cm into 1 cm in the antrum with clean whitish base and erythematous margins. Photo documentation obtained. There was also duodenal prolapse into the antrum with moderate localized gastritis. Multiple biopsies were obtained and sent for histopathologic examination. We also obtain 2 biopsies from the antrum and sent for LAKISHA testing. The ulcer was intentionally not biopsied. DUODENUM: Easily intubated and was normal except for prolapse. Photodocumentation was obtained. IMPRESSION: 1. Gastric ulcer (likely etiology of upper GI bleeding-no active bleeding currently) 2. Small hiatal hernia. 3. Duodenal prolapse into the antrum with surrounding gastritis (biopsied) PLAN: 1. Follow biopsies and LAKISHA-test. Will treat if positive. 2. Continue Protonix for now 3. Continue to monitor hemoglobin/hematocrit and transfuse if need be. 4. Follow up in GI clinic if still with problems. 5. Patient is not a candidate for colonoscopy due to very frail pulmonary status. The anesthesia does agree with that. If her pulmonary status improves , then can consider colonoscopy as an outpatient. Certainly, this would be a very high-risk procedure. 6. Avoid nonsteroidals - Assessment (1) Diarrhea R19.7 - DIARRHEA, UNSPECIFIED Acute Qualifiers: Diarrhea type: unspecified type Qualified Code(s): R19.7 - Diarrhea, unspecified Patient reports intolerable diarrhea. Happens 4 to 5 times a day. She reports she stays in the bathroom most of the day due to the diarrhea. Had extensive workup for acute GI bleed this month when she was hospitalized. She had an EGD , MRCP, CT abdomen and pelvis, and abdominal ultrasound. Found to have a gastric ulcer. Plan: Now with diarrhea. C diff and stool culture ordered. Consult GI circulation worker. (2) Dehydration E86.0 - DEHYDRATION Acute Present on Admission: Yes Plan: IVFs. (3) Bacterial pneumonia J15.9 - UNSPECIFIED BACTERIAL PNEUMONIA Acute Present on Admission: Yes Possible diagnosis given chest x-ray results. Plan: Cultures ordered. IV Zosyn because the patient has been recently admitted to the hospital and could have healthcare associated pneumonia or could have aspiration pneumonia. Further treatment depending on course. (4) Hypokalemia E87.6 - HYPOKALEMIA Acute Present on Admission: Yes Replace potassium with KCl. Check magnesium level and replace as needed. (5) General weakness R53.1 - WEAKNESS Acute Present on Admission: Yes Multifactorial. May be due to the diarrhea and electrolyte disturbance. Plan: Ambulate tid. Monitor. - Plan Dr. Cruz had previously consulted on her case during her recent admission to 05/20/16. His recommendations included the following: Recommendations: 1. agree to transfuse to hemoglobin about 8-9. 2. Hold off on all nonsteroidals, Lovenox for now 3. IV Protonix 4. EGD in a.m. 5. If negative, would need colonoscopy. Patient was not keen on getting a colonoscopy performed. I have reviewed the nursing notes and they do reveal some rectal bleeding. 6. Agree with hematology consultation specially given that she had M spike. 7. If she has any active bleeding, then will give her 1 dose of DDAVP. Case Care Discussed with: Patient, Nursing Staff Total Time: 60 min
[2016-05-29 19:27] LABS: ABG Draw Site Right Radial; ALLEN'S TEST PASS; BEb -1.5 (+/- 2); TCO2 22.2 MMOL/L (23-27)
[2016-05-29] MEDS: NS/KCl 20 mEq 1,000 ML IV SCH ×2 (20:52→20:53)
[2016-05-29] MEDS: PANTOPRAZOLE 40 MG VIAL IV SCH (20:54)
[2016-05-29] MEDS: PIPERACILLIN AND TAZOBACTAM 3.375 GM in D5W 100 ML IV SCH (20:54)
[2016-05-29] MEDS: POTASSIUM CHLORIDE 20 MEQ TAB PO SCH ×2 (21:04→22:54)
[2016-05-29] MEDS ORDERED: GUAIFEN 100 MG-DEXTROMETH 10 MG PER 5 ML PO PRN (21:32)
[2016-05-29] MEDS ORDERED: PROMETHAZINE 25 MG/ML VIAL IV PRN (21:32)
[2016-05-29] MEDS ORDERED: BISACODYL 5 MG TAB PO PRN (21:32)
[2016-05-29] MEDS ORDERED: TEMAZEPAM 15 MG CAP PO PRN (21:32)
[2016-05-29] MEDS ORDERED: SIMETHICONE 80 MG TAB PO PRN (21:32)
[2016-05-29] MEDS ORDERED: Aluminum;Magnesium;Simethicone 30 ML UDC PO PRN (21:32)
[2016-05-29] MEDS ORDERED: ONDANSETRON HCL 4 MG/2 ML VIAL IV PRN (21:32)
[2016-05-29] MEDS ORDERED: BENZONATATE 100 MG PERLES PO PRN (21:32)
[2016-05-29] MEDS ORDERED: ACETAMINOPHEN 325 MG/TAB TABLET PO PRN (21:32)
[2016-05-29] MEDS ORDERED: SENNA CONCENTRATE TAB PO PRN (21:32)
[2016-05-29] MEDS ORDERED: ACETAMINOPHEN 325 MG SUPP PR PRN (21:32)
[2016-05-29] MEDS ORDERED: Docusate Sodium 100 MG CAP PO PRN (21:32)
[2016-05-29] MEDS ORDERED: ALBUTEROL 0.083% 3 ML NEB NEB PRN (21:41)
[2016-05-29] MEDS: ENOXAPARIN 40 MG/0.4 ML PFS SQ SCH (22:54)
[2016-05-29] MEDS ORDERED: Vaccine Screening Complete SCH (23:00)
[2016-05-30] MEDS: PIPERACILLIN AND TAZOBACTAM 3.375 GM in D5W 100 ML IV SCH ×4 (01:17→19:41)
[2016-05-30] MEDS: POTASSIUM CHLORIDE 20 MEQ TAB PO SCH (01:18)
[2016-05-30] MEDS: NS/KCl 20 mEq 1,000 ML IV SCH ×4 (03:48→18:03)
[2016-05-30 04:46] VITALS: BMI 28.3
[2016-05-30 06:01] LABS: MPV 8.3 fL (7.4-10.4)
[2016-05-30] MEDS: Albuterol/Ipratropium Neb 3 ML NEB NEB SCH ×4 (06:08→20:22)
[2016-05-30 06:53] LABS: BLOOD UREA NITROGEN 6 MG/DL (7-17); CALC CORRECTED 8.7 MG/DL (8.4-10.2); CALCIUM 6.6 MG/DL (8.4-10.2); CALCULATED OSMOLALITY 259 MOs/Kg (270-290); CHLORIDE 110 mEq/L (98-107); GLUCOSE 73 MG/DL (70-99); LDL (calc.) 56.2 MG/DL (<100); SODIUM LEVEL 136 mEq/L (137-146); TOTAL PROTEIN 4.5 G/DL (6.3-8.2); VLDL (calc.) 25.8 MG/DL (5-40)
[2016-05-30] MEDS: Magnesium Sulfate 2 gm/D5W 2 GM/50 ML RTU IV SCH ×2 (08:46→12:34)
[2016-05-30] MEDS: PANTOPRAZOLE 40 MG VIAL IV SCH ×2 (08:47→19:41)
[2016-05-30] MEDS: LEVOTHYROXINE 25 MCG (0.025 MG) TAB PO SCH (08:50)
[2016-05-30] MEDS: METOPROLOL (TOPROL-XL) 25 MG TAB PO SCH (08:55)
--- NOTE | 2016-05-30 10:39 | PCM.CONSGI ---
Consult Date: 05/30/16 Consult Requesting Physician: Steven Hayward Consult Reason: Diarrhea - History of Present Illness Patient was admitted to the hospital because of diarrhea. She was hospitalized in early May for multiple problems including GI bleeding, and received antibiotics during that hospitalization. She be seen in emergency room on the 25 of May for diarrhea and a stool for Clostridium difficile as well as culture was negative. During her previous hospitalization, she was diagnosed with an antral ulcer as etiology of GI bleeding. SERENITY test was negative. She was discharged on pantoprazole which she has continued. There has been no recent colonoscopy. The history is somewhat conflicting in the medical record. The patient indicates to me today that the diarrhea started 5 days ago on Wednesday. She would have 2 or 3 loose stools a day, but her major problem was that of poor control with incontinence. The diarrhea definitely was not nocturnal nor was it more than 3 stools a day. There was no visible bleeding. There was no abdominal pain. There was no nausea or vomiting. The patient indicates she has never had a colonoscopy. This morning she indicates she has not had any diarrhea stools and she is hungry and wanting to eat. The patient steadfastly refuses to undergo a colonoscopy. - Past Medical History Cardiac History: Reports: Coronary Artery Disease, Hypertension, Heart Attack, Hypercholesterolemia, Valvular Heart Disease (AORTIC VALVE REPLACEMENT 2012 at [facility].) Respiratory History: Reports: COPD Musculoskeletal History: Reports: Arthritis Systemic History: Reports: Hypothyroidism Neurological History: Reports: Seizures ( BABY, none since then) Psychological History: Reports: Anxiety, Bipolar Disorder, Schizophrenia. Denies: Alcoholism, Substance Use Disorder - Surgical History Past Surgical History: Reports: Cholecystectomy, T&A - Family History Family History: Reports: Diabetes (MOM), Cardiac Disorders (Father: [place].), Cancer (PARENTS-BREAST, COLON), Hypertension (PARENTS), Respiratory Disorders, Stroke (MOM) - Allergies Allergies No Known Allergies Allergy (Verified 05/25/16 12:00) - Medications Home Medications Levothyroxine Sodium 25 mcg PO DAILY 03/07/16 Metoprolol Succinate (XL) [Toprol Xl] 12.5 mg PO DAILY 03/07/16 Omeprazole 20 mg PO DAILY 03/07/16 Ciprofloxacin HCl [Cipro] 500 mg PO BID #14 tab 05/25/16 Ondansetron HCl [Zofran] 4 mg PO Q8H PRN #15 tab 05/25/16 - Social History Lives: With Family (Son lives with her.) Smoking Status: Former smoker (Quit 05/03/16. Prev 1.5 to 2 ppd.) Social History: Denies: Alcohol Use, Substance Use Disorder - Review of Systems Constitutional: negative: Chills, Fever, Fatigue, Loss of Appetite, Weakness, Weight loss Eyes: No Symptoms Reported Ears: No Symptoms Reported Throat: No Symptoms Reported Nose: No Symptoms Reported Mouth: No Symptoms Reported Respiratory: negative: Cough, Shortness of Breath, Wheezing Cardiovascular: negative: Chest Pain, Edema, Palpitations Gastrointestinal: Diarrhea, Heartburn. negative: Nausea, Vomiting, Abdominal Pain, Melena, Hematochezia, Dysphasia Genitourinary: negative: Frequency, Hematuria Neurological: negative: Dizziness, Gait Difficulty, Headache, Seizure Musculoskeletal: Arthritis Integumentary: negative: Rash Allergic/Immunologic: No Symptoms Reported Hematologic: Anemia, Past Transfusions Endocrine: No Symptoms Reported Psychiatric: No Symptoms Reported - Exam Vital Signs: Temperature: 98.2 F (05/30/16 09:40) HR: 75 (05/30/16 09:40) RR: 19 (05/30/16 09:40) BP: 110/66 (05/30/16 09:40) Pulse Ox: 96 (05/30/16 09:40) General: Alert, Oriented x3, Cooperative, No acute distress HEENT: PERRLA. negative: Icteric Sclera, Pallor Respiratory: Normal - CTA. negative: Rales, Rhonchi, Wheezes Cardiovascular: Regular rate, Normal S1, Normal S2 Gastrointestinal: Soft, Bowel Sounds. negative: Tender, Guarding, Hepatosplenomegaly Extremities: Normal pulses. negative: Swelling, Edema Skin: Warm,Dry and Intact, No rashes Neurological: Normal speech, Cranial nerves 3-12 NL Psych/Mental Status: Appropriate, Normal Affect, Cooperative - Labs Result Diagrams: 05/30/16 05:30 05/30/16 05:30 Laboratory Tests 05/29/16 05/29/16 05/29/16 16:17 16:17 16:17 WBC 7.4 Hgb 10.5 L Hct 31.2 L Plt Count 257 PT 15.4 H INR 1.5 BUN 7 Creatinine 1.30 H Total Bilirubin 0.4 AST 35 ALT 36 Alkaline Phosphatase 149 Albumin 2.2 L Microbiology 05/25/16 13:44 Stool Stool Consistency (JUAN LUIS) - Final 05/25/16 13:44 Stool Clostridium difficile 027 (PCR) - Final NEGATIVE EGD Results - 05/18/2016 1 cm gastric ulcer; Serenity-test negative - Assessment and Plan (1) Diarrhea Acute R19.7 - DIARRHEA, UNSPECIFIED unspecified type R19.7 - Diarrhea, unspecified Comment: Clostridium difficile and infectious etiologies have been excluded. There is no sign of bleeding, so ulcerative colitis is unlikely. Most likely this is acute viral diarrhea that is now improving. Other possibilities are irritable bowel syndrome, or diarrhea secondary to one of her medications. Recommendations: 1. Repeat stool for Clostridium difficile even though test was-5 days ago (I have notified laboratory) 2. I have recommended a colonoscopy, but the patient declines 3. Would treat with Equalactin which is an OTC fiber supplement designed to help diarrhea 4. The patient could also use Imodium 5. I will be happy to see the patient in follow-up in my office for further evaluation of diarrhea as an outpatient MDM: Moderate New Problem no work-up Undiagnosed new problem CPT: 19893
[2016-05-30] MEDS ORDERED: LOPERAMIDE 2 MG CAP PO PRN (13:45)
--- NOTE | 2016-05-30 13:48 | GENMEDPROG ---
Subjective Note: 60-year-old female admitted to our facility with profuse diarrhea. Current Medication List: Reviewed Currently: Reports: Ambulating. Denies: Abdominal Pain, Fever/Chills DVT Prophylaxis: Yes - Physical Examination Vital Signs and I&O: Last Vital Signs Temp 98.2 F 05/30/16 09:40 Pulse 75 05/30/16 09:40 Resp 19 05/30/16 09:40 BP 110/66 05/30/16 09:40 Pulse Ox 96 05/30/16 09:40 Oxygen Pulse Oxygen Saturation 96 O2 Device Nasal Cannula Oxygen Flow Rate 2 Fraction of Inspired Oxygen ( FIO2) Intake & Output 05/27/16 05/28/16 05/29/16 05/30/16 23:59 23:59 23:59 23:59 Intake Total 1100 1520 Balance 1100 1520 Patient's weight 65.453 kg 65.884 kg General: Alert, Oriented x3, Cooperative, No acute distress Respiratory: Normal - CTA. negative: Rales, Rhonchi, Wheezes Cardiovascular: Regular rate and rhythm (No bradycardia or tachycardia), Normal S1, No Gallops,Rubs/Murmurs, Normal S2, Good Pedal Pulses (DP pulses 2+ bilaterally) GI: Normal bowel sounds (normal active sounds), Soft (non-distended), Non tender , No hepatospenomegaly, No masses Extremities/Musculoskeletal: Normal pulses. negative: Swelling, Edema Skin: Warm,Dry and Intact, No rashes Lab/DI/Studies Reviewed: Microbiology 05/30/16 00:01 Stool Stool Consistency (JUAN LUIS) - Final 05/30/16 00:01 Stool Clostridium difficile 027 (PCR) - Final NEGATIVE A single negative test for C. difficile indicates the likelihood that this organism is causing the diarrheal illness is extremely low. Therefore, repeat testing is strongly discouraged. If a new diarrheal illness occurs more than 7 days after the initial negative test, then sending a single repeat specimen may be indicated. ([employer] Genexpert C. difficile/Epi by PCR: Performance characteristics have not been established for patients <2 years of age - per wood last maker limitations.) PRESUMPTIVE NEGATIVE (For in vitro diagnostic use only. 027-NAP1-BI results are NOT intended to guide treatment of C. difficile infections. (Infection Control Hosp Epidemiol 2010;31:431-455) ) 05/30/16 00:01 Stool Campylobacter Antigen Assay - Final NEGATIVE ("NORMAL" value = "NEGATIVE".) Abnormal Lab Results 05/29/16 05/29/16 05/29/16 16:17 16:17 16:17 RBC 3.74 L Hgb 10.5 L Hct 31.2 L RDW 16.1 H PT 15.4 H pH pCO2 pO2 HCO3 Total CO2 Sodium 133 L Potassium 2.7 L Chloride Carbon Dioxide 20 L BUN Creatinine 1.30 H Estimated GFR (MDRD) 42 L Glucose 103 H Calculated Osmolality 254 L Calcium 7.0 L Magnesium Total Protein 5.2 L Albumin 2.2 L HDL Cholesterol Urine Protein Urine WBC Hyaline Casts 05/29/16 05/29/16 05/29/16 16:17 17:30 19:15 RBC Hgb Hct RDW PT pH 7.460 H pCO2 30.0 L pO2 122.0 H HCO3 21.3 L Total CO2 22.2 L Sodium Potassium Chloride Carbon Dioxide BUN Creatinine Estimated GFR (MDRD) Glucose Calculated Osmolality Calcium Magnesium 1.30 L Total Protein Albumin HDL Cholesterol Urine Protein 1+ H Urine WBC 5-10 H Hyaline Casts 5-10 H 05/30/16 05/30/16 05:30 05:30 RBC 3.44 L Hgb 9.6 L Hct 28.8 L RDW 16.2 H PT pH pCO2 pO2 HCO3 Total CO2 Sodium 136 L Potassium Chloride 110 H Carbon Dioxide BUN 6 L Creatinine 1.20 H Estimated GFR (MDRD) 46 L Glucose Calculated Osmolality 259 L Calcium 6.6 L* Magnesium Total Protein 4.5 L Albumin 1.9 L HDL Cholesterol 34.0 L Urine Protein Urine WBC Hyaline Casts - Assessment (1) Diarrhea Acute R19.7 - DIARRHEA, UNSPECIFIED Qualifiers: Diarrhea type: unspecified type Qualified Code(s): R19.7 - Diarrhea, unspecified Comment/Plan: Dr. Osei is guidance very much appreciated. Will give patient pro biotic and encourage yogurt eating. Will add Imodium as needed for loose bowel movement and start Equalactin as an outpatient (2) Dehydration Acute E86.0 - DEHYDRATION Comment/Plan: Resolving (3) Bacterial pneumonia Suspected J15.9 - UNSPECIFIED BACTERIAL PNEUMONIA Comment/Plan: Suspected possible diagnosis. Will repeat chest x-ray this time doing a PA and lateral to determine if there truly is any source of infection. Please no patient with no cough no sputum production no elevated white blood cell count. (4) Hypokalemia Acute E87.6 - HYPOKALEMIA Comment/Plan: Post magnesium and potassium levels were low in are being repleted. Patient did have a 6 beat run of V-tach will recheck in a.m.. (5) General weakness Acute R53.1 - WEAKNESS Comment/Plan: Replete electrolytes encourage ambulation. - Plan Recheck chest x-ray. Try patient on Imodium over the next 24 hours. Likely discharge in a.m.. Disposition Plan: Hopefully home Case Care Discussed with: Patient, Consultants (Dr. Osei), Nursing Staff Education/Counseling Given To: Patient Education/Counseling Given Regarding: Diagnosis, Treatment, Prognosis, Follow Up , Disposition Plan Total Time: 45 minutes Critical Care: No Couseling Time (>50% in counseling/coordination): No
--- NOTE | 2016-05-30 15:42 | DIRPT ---
CLINICAL DATA: Pneumonia EXAM: CHEST 2 VIEW COMPARISON: 05/29/2016 FINDINGS: The cardiac shadow is stable. Postsurgical changes are again seen. Minimal linear density is again seen in the left lung base likely representing atelectasis. On the lateral projection however there is infiltrate seen posteriorly. IMPRESSION: Left lower lobe infiltrate Electronically Signed By: Flakito Meade M.D. On: 05/30/2016 15:39
[2016-05-30] MEDS: MAGNESIUM OXIDE 400 MG TAB PO SCH (18:00)
[2016-05-30] MEDS: ENOXAPARIN 40 MG/0.4 ML PFS SQ SCH (18:00)
[2016-05-31] MEDS: Albuterol/Ipratropium Neb 3 ML NEB NEB SCH ×2 (01:36→09:11)
[2016-05-31] MEDS: PIPERACILLIN AND TAZOBACTAM 3.375 GM in D5W 100 ML IV SCH ×2 (02:15→09:28)
[2016-05-31] MEDS: NS/KCl 20 mEq 1,000 ML IV SCH ×2 (02:15→11:51)
[2016-05-31] MEDS: METOPROLOL (TOPROL-XL) 25 MG TAB PO SCH (09:28)
[2016-05-31] MEDS: PANTOPRAZOLE 40 MG VIAL IV SCH (09:28)
[2016-05-31] MEDS: MAGNESIUM OXIDE 400 MG TAB PO SCH ×2 (09:28→11:51)
[2016-05-31] MEDS: LEVOTHYROXINE 25 MCG (0.025 MG) TAB PO SCH (09:28)
[2016-05-31 09:40] VITALS: BP 138/78; PULSE 70; TEMP 98
--- NOTE | 2016-05-31 11:17 | PCM.DCS92 ---
- Final/Secondary Discharge Diagnosis (1) Diarrhea Acute R19.7 - DIARRHEA, UNSPECIFIED unspecified type R19.7 - Diarrhea, unspecified Comment: Dr. Osei is guidance very much appreciated. Will give patient pro biotic and encourage yogurt eating. Will add Imodium as needed for loose bowel movement and start Equalactin as an outpatient (2) Dehydration Acute E86.0 - DEHYDRATION Present on Admission: Yes Comment: Resolving (3) Bacterial pneumonia Acute J15.9 - UNSPECIFIED BACTERIAL PNEUMONIA Present on Admission: Yes Comment: PA and lateral chest x-ray did show left infiltrate. Will treat with levofloxacin 500 mg p.o. q.day for 5 days. (4) Hypokalemia Acute E87.6 - HYPOKALEMIA Present on Admission: Yes Comment: Recheck magnesium greater than 1.5 can discharge home. (5) General weakness Acute R53.1 - WEAKNESS Present on Admission: Yes Comment: Replete electrolytes encourage ambulation. Discharge Disposition: Discharge w/ Home Health Discharge Condition: Improved Cognitive Discharge Status: Unimpaired Fuctional Discharge Status: Independent Physician Follow up/Referrals: Florentino Russo MD [Primary Care Provider] - One Week Home Medications / New Prescriptions: New Loperamide HCl [Imodium] 2 mg PO PRN PRN #20 capsule PRN Reason: Diarrhea Probiotic Blend [Aubrie Q] 1 each PO BID #60 tab Calcium Polycarbophil [Mitrolan, Equalactin] 500 mg PO BID #60 tab Levofloxacin 500 mg PO DAILY(TAMMIE) #5 tablet Continue Omeprazole 20 mg PO DAILY Metoprolol Succinate (XL) [Toprol Xl] 12.5 mg PO DAILY Levothyroxine Sodium 25 mcg PO DAILY Ondansetron HCl [Zofran] 4 mg PO Q8H PRN #15 tab PRN Reason: Nausea/Vomiting Discontinued Ciprofloxacin HCl [Cipro] 500 mg PO BID #14 tab Discharge Home Medication List Levothyroxine Sodium 25 mcg PO DAILY 03/07/16 [History Confirmed 05/29/16] Metoprolol Succinate (XL) [Toprol Xl] 12.5 mg PO DAILY 03/07/16 [History Confirmed 05/29/16] Omeprazole 20 mg PO DAILY 03/07/16 [History Confirmed 05/29/16] Ondansetron HCl [Zofran] 4 mg PO Q8H PRN #15 tab 05/25/16 [Rx Confirmed 05/29/16 ] Calcium Polycarbophil [Mitrolan, Equalactin] 500 mg PO BID #60 tab 05/31/16 [Rx] Levofloxacin 500 mg PO DAILY(TAMMIE) #5 tablet 05/31/16 [Rx] Loperamide HCl [Imodium] 2 mg PO PRN PRN #20 capsule 05/31/16 [Rx] Probiotic Blend [Aubrie Q] 1 each PO BID #60 tab 05/31/16 [Rx] New Discharge Medications (Rx) Calcium Polycarbophil [Mitrolan, Equalactin] 500 mg PO BID #60 tab 05/31/16 [Rx] Levofloxacin 500 mg PO DAILY(TAMMIE) #5 tablet 05/31/16 [Rx] Loperamide HCl [Imodium] 2 mg PO PRN PRN #20 capsule 05/31/16 [Rx] Probiotic Blend [Aubrie Q] 1 each PO BID #60 tab 05/31/16 [Rx] O2 Device: Nasal Cannula Oxygen Flow Rate: 2 Oxygen to be used after Discharge: Continuous Diet at Discharge: As Tolerated, Regular Activity: No Restrictions Call Office For: Worsening Symptoms, Fever over 100.5, Pain Uncontrolled By Meds - DC Summary Notes Hospital Course Note:: Discharge summary on patient named GILLIAN PATTERSON admitted to [facility] on 05/29/16 by Steven Hayward MD. Date of discharge is []. Total Time: 45 min - Physical Exam Vital Signs: Last Vital Signs Temp 98.0 F 05/31/16 09:39 Pulse 70 05/31/16 09:39 Resp 20 05/31/16 09:39 BP 138/78 05/31/16 09:39 Pulse Ox 100 05/31/16 09:39 Oxygen Pulse Oxygen Saturation 100 O2 Device Nasal Cannula Oxygen Flow Rate 2 Fraction of Inspired Oxygen ( FIO2) Constitutional: No apparent distress, Alert Oriented to: Time, Person, Place - HEENT Nose: No Symptoms Reported - Respiratory/Cardiovascular Respiratory: Normal - CTA. negative: Rales, Rhonchi, Wheezes - GI Auscultation: Normal Palpation: Normal Tenderness: Non tender - Musculoskeletal Back: Normal Extremities: Normal - Integumentary Skin: Normal - Neurologic Memory Impaired: Normal Motor Function: Normal (Motor 5/5 throughout.Normal tone, Pulses 2+ No cyanosis or edema, FROM) Cranial Nerve: Normal (CN II-XII intact sensation, strength 5/5) Mood Description: Normal Thought: Coherent Perception: Normal
== END 2016-05-31 13:08 | disposition home health service (06) | DRG 640 ==
LOC: ED 15:59 → MPS3 18:56
PROVIDERS: ADMIT Internal Medicine; ATTEND Hospitalist
DX: E86.0 Dehydration (principal); J15.9 Unspecified bacterial pneumonia; R19.7 Diarrhea, unspecified; E87.6 Hypokalemia; R53.1 Weakness; K21.9 Gastro-esophageal reflux disease without esophagitis; I25.10 Atherosclerotic heart disease of native coronary artery without angina pectoris; Z87.19 Personal history of other diseases of the digestive system; I10 Essential (primary) hypertension; E78.00 Pure hypercholesterolemia, unspecified; E03.9 Hypothyroidism, unspecified; Z87.891 Personal history of nicotine dependence; I25.2 Old myocardial infarction; J44.9 Chronic obstructive pulmonary disease, unspecified; Z95.1 Presence of aortocoronary bypass graft; Z95.3 Presence of xenogenic heart valve; Z79.899 Other long term (current) drug therapy
CPT/HCPCS: 36415; 36600; 71010; 71020; 80053; 80061; 81001; 82803; 83735; 84484; 85025; 85027; 85610; 85730; 87040; 87045; 87046; 87086; 87427; 87449; 87493; 93005; 94640; 96361; 96365; 96372; 99284; 99406; G0237; J0696; J1650; J2543; J3475; J3490; J7040; J7060; J7620; S0164

== ENCOUNTER 2016-06-01 08:35 | Emergency (ER) | payer MEDICAID ==
[2016-06-01] MEDS ORDERED: NS 1,000 ML IV ONE (08:46)
--- NOTE | 2016-06-01 08:51 | EDPRACDOC ---
- General Information Stated Complaint: DIARRHEA Time Seen by Provider: 06/01/16 08:41 Information Source: Patient Mode Of Arrival: Ambulance Home Medications: Home Medications Levothyroxine Sodium 25 mcg PO DAILY 03/07/16 Metoprolol Succinate (XL) [Toprol Xl] 12.5 mg PO DAILY 03/07/16 Omeprazole 20 mg PO DAILY 03/07/16 Ondansetron HCl [Zofran] 4 mg PO Q8H PRN #15 tab 05/25/16 Calcium Polycarbophil [Mitrolan, Equalactin] 500 mg PO BID #60 tab 05/31/16 Levofloxacin 500 mg PO DAILY(TAMMIE) #5 tablet 05/31/16 Loperamide HCl [Imodium] 2 mg PO PRN PRN #20 capsule 05/31/16 Probiotic Blend [Aubrie Q] 1 each PO BID #60 tab 05/31/16 Allergies/Adverse Reactions: Allergies Allergy/AdvReac Type Severity Reaction Status Date / Time No Known Allergies Allergy Verified 06/01/16 09:20 - History of Present Illness HPI: PATIENT RECENTLY ADMITTED TO THE HOSPITAL FOR PNEUMONIA AND ANEMIA SECONDARY TO GASTRIC ULCER. WAS PLACED ON ANTIBIOTICS. DEVELOPED DIARRHEA DURING ED COURSE. C DIFF AND STOOL CULTURES WERE WITHIN NORMAL LIMITS. PATIENT WAS PLACED ON IMODIUM AND PROBIOTICS. PATIENT WAS DISCHARGED FROM THE HOSPITAL YESTERDAY. ALSO HAD GI CONSULTATION. SINCE BEEN AT HOME SHE HAS HAD MULTIPLE LOOSE BOWEL MOVEMENTS PER DAY FEELING WEAK. THEREFORE SHE BACKED EMERGED FROM THE EMS. ED Past Medical History - History Reviewed Yes Nurses notes reviewed and agree except as marked - Patient Medical History Neurological History: Reports: Seizures ( BABY, none since then) Cardiac History: Reports: Coronary Artery Disease, Hypertension, Heart Attack, Cardiac Catheterization (and aortic valve replacement), CABG (w/ aortic valve replacement), Hypercholesterolemia, Valvular Heart Disease (AORTIC VALVE REPLACEMENT 2012 at [facility] valve.) Respiratory History: Reports: COPD, Cough, Chronic Bronchitis, Pneumonia GI/ History: Reports: Renal Failure, Urinary Tract Infection, Gastroesophageal Reflux, Ulcer Musculoskeletal History: Reports: Arthritis Psychological History: Reports: Anxiety, Schizophrenia, Bipolar Disorder. Denies: Depression, Substance Use Disorder Systemic History: Reports: Hypothyroidism Surgical History: Reports: Cholecystectomy, CABG (w/ aortic valve replacement), Cardiac Catheterization (and aortic valve replacement), Tonsillectomy/ Adnoidectomy, Other ( x2, BTL. AORTIC VALVE REPLACEMENT). Denies: Hysterectomy - Family Medical History Reports: Hypertension (PARENTS), Diabetes (MOM), Cancer (PARENTS-BREAST, COLON) , Stroke (MOM), Cardiac Disorders (Father: [place].), Respiratory Disorders - Social Medical History Smoking Status: Former smoker (Quit 05/03/16. Prev 1.5 to 2 ppd.) Social History: Denies: Cocaine Use, Marijuana Use, Substance Use Disorder EDM Review of Systems - Review of Systems ROS Negative Except as Marked: Yes All systems reviewed and were negative except as marked - Physical Exam Constitutional: Alert (Awake), No apparent distress Oriented to: Time, Person, Place Last recorded Vital Signs: Oxygen Pulse Oxygen Saturation O2 Device Oxygen Flow Rate Fraction of Inspired Oxygen ( FIO2) - HEENT Head: Normal ( normocephalic) Eye Exam: Normal (PERRL, EOMI, Sclera white) Oropharynx: Normal (Pharynx:Moist without exudate,Gums-no swelling). negative: Membranes Dry Nose: No Symptoms Reported (septum midline) Neck: Normal (FROM, trachea at midline) - Respiratory/Cardiovascular Respiratory: Normal - CTA (BBS clear to auscultation without adventitious sounds ) Cardiovascular: Normal (RRR without murmur, gallop or rub) - GI Auscultation: Normal (NABS) Palpation: Normal (Soft,No rebound or guarding, non distended) Tenderness: Non tender. negative: Guarding, Rebound, Rigidity Vincent's Sign: Negative - Musculoskeletal Back: Normal (Non-Tender) Extremities: Normal (Normal tone, Pulses 2+ No cyanosis or edema, FROM) - Integumentary Skin: Normal, Warm, Dry Lymphatics: Normal (no adenopathy) - Neurologic Memory Impaired: Normal Motor Function: Normal (Normal tone, Pulses 2+ No cyanosis or edema, FROM) Cranial Nerve: Normal (CN II-X11 intact sensation, strength 5/5) Cerebellar: Normal Mood Description: Normal Perception: Normal - Results 06/01/16 09:00 06/01/16 09:00 - EKG EKG #1 EKG Time: 09:02 -: Yes EKG interpreted by me Rate: bpm: 86 Sprakers: Normal Rhythm: NSR Block: None Hypertrophy: None ST: Old, Inf, Lat, Nonsp Comparison: 05/08/16 (NO SIG CHANGE) - Additional Information LABS AT BASELINE.NO DIARRHEA DURING ED COURSE. NO BENEFIT TO INPATIENT CARE. - Departure Disposition: Home Final Diagnosis: Weakness generalized Diarrhea Qualifiers: Diarrhea type: unspecified type Qualified Code(s): R19.7 - Diarrhea, unspecified Instructions: Acute Diarrhea (ED) Education/Counseling Given To: Patient Education/Counseling Given Regarding: Diagnosis, Treatment, Prognosis Referrals: None,No Provider [Primary Care Provider] - One Week Prescriptions: No Action Omeprazole 20 mg PO DAILY Metoprolol Succinate (XL) [Toprol Xl] 12.5 mg PO DAILY Levothyroxine Sodium 25 mcg PO DAILY Ondansetron HCl [Zofran] 4 mg PO Q8H PRN #15 tab PRN Reason: Nausea/Vomiting Loperamide HCl [Imodium] 2 mg PO PRN PRN #20 capsule PRN Reason: Diarrhea Probiotic Blend [Aubrie Q] 1 each PO BID #60 tab Calcium Polycarbophil [Mitrolan, Equalactin] 500 mg PO BID #60 tab Levofloxacin 500 mg PO DAILY(TAMMIE) #5 tablet Additional Instructions: CONTINUE MEDICATIONS
[2016-06-01 09:11] LABS: AUTOMATED BASOPHIL 2.7 % (0-2); AUTOMATED EOSINOPHIL 3.7 % (0-5); AUTOMATED LYMPH 25.4 % (17-44); AUTOMATED MONOCYTE 4.9 % (3-10); AUTOMATED NEUTROPHIL 63.3 % (45-76); MPV 7.8 fL (7.4-10.4)
[2016-06-01 09:18] LABS: LEUKOCYTES/URINE NEG (NEGATIVE); NITRITE/URINE NEG (NEGATIVE); RBC/URINE 0-2 (0-5); URINE OCCULT BLOOD 1+ (NEG/TRACE); WBC/URINE 0-2 (0-5)
[2016-06-01 09:19] VITALS: TEMP 98.8; BMI 28.8
[2016-06-01 09:22] LABS: BLOOD UREA NITROGEN 5 MG/DL (7-17); CALC CORRECTED 9.2 MG/DL (8.4-10.2); CALCIUM 7.6 MG/DL (8.4-10.2); CALCULATED OSMOLALITY 258 MOs/Kg (270-290); CHLORIDE 107 mEq/L (98-107); GLUCOSE 85 MG/DL (70-99); SODIUM LEVEL 136 mEq/L (137-146); TOTAL PROTEIN 5.7 G/DL (6.3-8.2)
[2016-06-01 09:24] LABS: PT-INR 1.2
--- NOTE | 2016-06-01 09:31 | DIRPT ---
CLINICAL DATA: Sepsis followup, taking antibiotics with loose stools EXAM: PORTABLE CHEST 1 VIEW COMPARISON: 05/30/2016 FINDINGS: Mild cardiac enlargement stable. There is discoid atelectasis in both midlung zones. There is mild hazy density in the right lower lobe similar to prior study which may be atelectasis as well. No significant pleural effusion component. IMPRESSION: Bilateral subsegmental atelectasis. Additionally mild hazy opacity medial right lower lobe similar to slightly more pronounced when compared to prior study. This could represent developing infectious infiltrate versus atelectasis. Electronically Signed By: Renny Peterson M.D. On: 06/01/2016 09:28
[2016-06-01 11:16] VITALS: BP 161/76; PULSE 89
== END 2016-06-01 11:16 | disposition home or self-care (01) ==
LOC: ED 08:35
DX: R19.7 Diarrhea, unspecified (principal); R53.1 Weakness
CPT/HCPCS: 36415; 71010; 80053; 81001; 83605; 85025; 85610; 85730; 87040; 87086; 93005; 96360; 99283

== ENCOUNTER 2016-06-02 11:09 | Emergency (ER) | payer MEDICAID ==
[2016-06-02 11:26] VITALS: BP 170/93; PULSE 99; TEMP 98.9; BMI 28.7
== END 2016-06-02 13:45 | disposition left against medical advice (07) ==
LOC: ED 11:09
DX: Z53.21 Procedure and treatment not carried out due to patient leaving prior to being seen by health care provider (principal)